=== PATIENT | female | born 1935 | race Caucasian/White ===

== ENCOUNTER 2017-02-23 21:30 | Inpatient (IN) | payer MEDICARE ==
[~2017-02-23 21:30] MED LIST: ALBUTEROL2.5 MG/3 M INH; BAYER CHEWABLE81 MG PO; FLAGYL500 MG PO; GLIPIZIDE10 MG PO; GLUCOPHAGE1000 MG PO; HYDROCODON-ACE1 EAC7 PO; HYDROCODONE-APA1 TAB PO; LEVAQUIN750 MG PO; PROTONIX40 MG PO; SYNTHROID100 MCG PO; TOPROL XL50 MG PO; ZOFRAN ODT4 MG/UDTAB PO; ZYRTEC10 MG PO
[2017-02-23 23:05] LABS: BASOPHILS 0.2 % (0-2); EOSINOPHILS 0.8 % (0-7); HEMATOCRIT 42.7 % (36.0-48.0); HEMOGLOBIN 13.9 g/dL (12-16); IMMATURE GRANULOCYTES 0.7 % (0-5); LYMPHOCYTES 16.5 % (15-50); MCH 29.1 pg (26.0-34.0); MCHC 32.6 g/dL (31.0-37.0); MCV 89.3 fL (80.0-100.0); MEAN PLATELET VOLUME 9.5 fL (7.4-10.4); MONOCYTES 8.6 % (2-11); NEUTROPHILS 73.2 % (40-80); PLATELET COUNT 251 10x3/uL (130-400); RBC 4.78 10x6/uL (4.00-5.40); RDW 15.6 % (11.5-14.5); WBC 9.1 10x3/uL (4.8-10.8)
[2017-02-23 23:17] LABS: ALBUMIN 3.3 g/dL (3.4-5.0); ALKALINE PHOSPHATASE 133 U/L (46-116); ALT (SGPT) 19 U/L (10-68); BILIRUBIN - TOTAL 0.43 mg/dL (0.2-1.3); CALC OSMOLALITY 298 mosm/kg (275-300); CALCIUM 9.3 mg/dL (8.5-10.1); CARBON DIOXIDE 27.1 mmol/L (21.0-32.0); CHLORIDE - SERUM 104 mmol/L (98-107); CREATININE - SERUM 0.8 mg/dL (0.6-1.3); POTASSIUM - SERUM 4.1 mmol/L (3.5-5.1); PROTEIN - SERUM 7.4 g/dL (6.4-8.2); SODIUM 141 mmol/L (136-145); UREA NITROGEN 21 mg/dL (7-18); eGFR NON AFRICAN AMERICAN 73 mL/min (90-120)
[2017-02-23 23:22] LABS: GLUCOSE 366 mg/dL (74-106)
[2017-02-23 23:29] LABS: CKMB 0.8 U/L (0.0-3.6); CREATINE KINASE 68 UL (21-215)
[2017-02-23 23:32] LABS: TROPONIN-I < 0.017 ng/mL (0.000-0.060)
[2017-02-24] VITALS (7 sets, daily range): BP systolic 98–132; BP diastolic 44–63; BMI 28.9
[2017-02-24 00:34] LABS: APTT 25.9 SECONDS (22.8-39.4); INR 0.95 (0.85-1.17); PROTIME 12.5 SECONDS (11.6-15.0)
[2017-02-24 01:05] LABS: APPEARANCE CLEAR (CLEAR); BILIRUBIN NEGATIVE (NEGATIVE); COLOR YELLOW (YELLOW); GLUCOSE NEGATIVE (NEGATIVE); KETONE NEGATIVE (NEGATIVE); NITRITE NEGATIVE (NEGATIVE); PROTEIN NEGATIVE (NEGATIVE); UROBILINOGEN NORMAL (NORMAL)
[2017-02-24] MEDS ORDERED: GLUCOPHAGE500 MG PO (01:16)
[2017-02-24] MEDS ORDERED: BAYER CHEWABLE81 MG PO (01:16)
[2017-02-24] MEDS ORDERED: LANTUS INSULIN10 ML SC (01:19)
--- NOTE | 2017-02-24 02:05 | NUR ---
16 [place]EN[place] BRUNER INSERTED PER ORDER USING APPLICATION SPEC.
--- NOTE | 2017-02-24 03:34 | NUR ---
ASSESSED, PT IS DOING WELL WITH HER BRUNER CATH. SHE HAS BEEN POSITIONED SO THAT SHE IS NOT HAVING A LOT OF PAIN. MEDS ARE COMING FROM A CONVEYOR [employer]ER [employer] WHICH IS KEEPING HER PAIN UNDER CONTROL. THE BED IS LOW, RAILS UP X'S 2 WITH THE CALL LIGHT AT HAND.
--- NOTE | 2017-02-24 07:40 | NUR ---
SLEEPING, NO DISTRESS NOTED, AROUSES TO VOICE, DENIES NEEDS, CALL LIGHT IN REACH, WILL CONTINUE TO MONITOR
[2017-02-24 10:26] LABS: BASOPHILS 0.1 % (0-2); EOSINOPHILS 1.3 % (0-7); HEMATOCRIT 39.9 % (36.0-48.0); IMMATURE GRANULOCYTES 0.3 % (0-5); LYMPHOCYTES 16.1 % (15-50); MCH 29.3 pg (26.0-34.0); MCHC 32.6 g/dL (31.0-37.0); MCV 89.9 fL (80.0-100.0); MEAN PLATELET VOLUME 9.1 fL (7.4-10.4); NEUTROPHILS 74.2 % (40-80); PLATELET COUNT 214 10x3/uL (130-400); RBC 4.44 10x6/uL (4.00-5.40); RDW 15.7 % (11.5-14.5); WBC 6.9 10x3/uL (4.8-10.8)
--- NOTE | 2017-02-24 12:37 | NUR ---
PATIENT ALERT/VERBAL. ABLE TO VOICE NEEDS. EATING LUNCH. NO COMPLAINTS AT THIS TIME. CALL LIGHT IN REACH. WILL CONTINUE TO MONITOR.
--- NOTE | 2017-02-24 12:44 | NUR ---
PT RECEIVED TO FLOOR FROM RECOVERY, DENIES NEEDS, VITALS STABLE, CALL LIGHT IN REACH, FAMILY AT BEDSIDE, WILL CONTINUE TO MONITOR
--- NOTE | 2017-02-24 17:15 | NUR ---
RECEIVED CARE FROM DAY NURSE. PT LYING IN BED IN LOW FOWLERS POSITION. DAUGHTERS AT BEDSIDE. REPORTS NO NEEDS AT THIS TIME. CALL LIGHT AT SIDE. BRUNER TO GRAVITY. NO EXTENSION OF BLEEDING TO RIGHT HIP AT THIS TIME.
--- NOTE | 2017-02-24 19:09 | NUR ---
PATIENT REPORTS THAT SHE IS A CURRENT 5 CIGARETTE PER DAY SMOKER. REFUSES CESSATION MEDICATION AND REFERRAL TO TOBACCO QUITLINE.
--- NOTE | 2017-02-25 00:12 | NUR ---
PATIENT RESTING IN BED AND DENIES NEEDS AT THIS TIME. SPIKED NEW BAG OF IV FLUIDS. BED IN LOWEST POSITION AND CALL LIGHT WITHIN REACH. ENCOURAGED THE PT TO CALL IF SHE HAS FURTHER NEEDS.
--- NOTE | 2017-02-25 02:58 | NUR ---
PT IN HIGH FOWLERS POSITION. RESP EVEN AND UNLABORED. CALL LIGHT AT SIDE. IV INFUSING PER ORDER.
[2017-02-25 04:01] VITALS: BP 111/60
[2017-02-25 05:53] LABS: BASOPHILS 0.1 % (0-2); EOSINOPHILS 1.2 % (0-7); HEMOGLOBIN 11.3 g/dL (12-16); IMMATURE GRANULOCYTES 0.4 % (0-5); LYMPHOCYTES 22.8 % (15-50); MCH 29.4 pg (26.0-34.0); MCHC 32.3 g/dL (31.0-37.0); MCV 91.1 fL (80.0-100.0); MEAN PLATELET VOLUME 9.6 fL (7.4-10.4); MONOCYTES 9.8 % (2-11); NEUTROPHILS 65.7 % (40-80); PLATELET COUNT 206 10x3/uL (130-400); RBC 3.84 10x6/uL (4.00-5.40); RDW 15.8 % (11.5-14.5); WBC 6.9 10x3/uL (4.8-10.8)
[2017-02-25 06:12] LABS: ALKALINE PHOSPHATASE 82 U/L (46-116); ALT (SGPT) 16 U/L (10-68); CALCIUM 7.7 mg/dL (8.5-10.1); CARBON DIOXIDE 26.5 mmol/L (21.0-32.0); CHLORIDE - SERUM 109 mmol/L (98-107); CREATININE - SERUM 0.6 mg/dL (0.6-1.3); POTASSIUM - SERUM 3.8 mmol/L (3.5-5.1); SODIUM 142 mmol/L (136-145); UREA NITROGEN 16 mg/dL (7-18); eGFR NON AFRICAN AMERICAN > 90 mL/min (90-120)
[2017-02-25 06:15] LABS: ALBUMIN 2.4 g/dL (3.4-5.0); CALC OSMOLALITY 284 mosm/kg (275-300); GLUCOSE 112 mg/dL (74-106); PROTEIN - SERUM 5.5 g/dL (6.4-8.2)
[2017-02-25 08:44] VITALS: BP 118/60
[2017-02-25 12:40] VITALS: BP 121/58
--- NOTE | 2017-02-25 14:22 | NUR ---
PT HERE FOR RIGHT HIP FRACTURE FOR THIS VISIT IV TO LEFT ARM PATENT AND INTACT AT THIS TIME SRX2 BED AT LOWEST SETTING CALL LIGHT WITHIN REACH WILL CONTINUE TO MONITOR
[2017-02-25 14:51] VITALS: BMI 28.8
--- NOTE | 2017-02-25 14:59 | NUR ---
Rehab Prescreening Consult recieved and the chart has been reviewed. She is a good IRF candidate. She is POD#1 and has not been able to do more than transfer with PT yet. Rehab will follow her progress and plan to accept on POD#3. Discussed with the CM Laura Castillo. Rosette Portillo RN Clinical Liaison, Rehab
--- NOTE | 2017-02-25 19:30 | NUR ---
RECIEVED SHIFT REPORT. PT IS LYING IN BED. ALERT AND ORIENTED AND ABLE TO VERBALIZE NEEDS. IV IS PATENT AND FLUIDS ARE RUNNING PER ORDER. PHYSICAL THERAPY IS WORKING WITH PT BUT SHE IS ABLE TO ASSIST IN TURNING IN BED FOR COMFORT AND SKIN CARE. BRUNER IS DRAINING URINE BY GRAVITY. SCD'S ON. O2 @ 4 PER NASAL CANNULA. PT DENIES ANY PAIN AT THIS TIME. DRESSINGS TO RIGHT HIP C/D/I. NO NEEDS ARE VERBALIZED AT THIS TIME. WILL CONTINUE TO MONITOR. SIDE RAILS ARE UP X 2. BED IS IN LOWEST POSITION. BED ALARM IS ON FOR SAFETY. CALL LIGHT IS WITHIN REACH.
[2017-02-25 20:00] VITALS: BP 119/51
--- NOTE | 2017-02-25 21:14 | NUR ---
SHIFT ASSESSMENT COMPLETED. NIGHT MEDS GIVEN WITH NO PROBLEMS. PT RECIEVED 8 UNITS INSULIN PER SLIDING SCALE FOR CHVY=997. NO NEEDS ARE VOICED. WILL MONITOR. SIDE RAILS X 2. BED LOW. BED ALARM ON. CALL LIGHT IN REACH.
[2017-02-26] VITALS: BP 141/58
[2017-02-26 04:00] VITALS: BP 135/64
[2017-02-26 05:22] LABS: BASOPHILS 0.1 % (0-2); EOSINOPHILS 1.6 % (0-7); HEMATOCRIT 35.1 % (36.0-48.0); HEMOGLOBIN 11.3 g/dL (12-16); IMMATURE GRANULOCYTES 0.7 % (0-5); LYMPHOCYTES 18.5 % (15-50); MCH 29.1 pg (26.0-34.0); MCHC 32.2 g/dL (31.0-37.0); MCV 90.5 fL (80.0-100.0); MEAN PLATELET VOLUME 9.5 fL (7.4-10.4); MONOCYTES 10.7 % (2-11); NEUTROPHILS 68.4 % (40-80); PLATELET COUNT 213 10x3/uL (130-400); RBC 3.88 10x6/uL (4.00-5.40); RDW 15.7 % (11.5-14.5); WBC 7.7 10x3/uL (4.8-10.8)
[2017-02-26 05:40] LABS: ALBUMIN 2.3 g/dL (3.4-5.0); ALKALINE PHOSPHATASE 96 U/L (46-116); ALT (SGPT) 15 U/L (10-68); BILIRUBIN - TOTAL 0.61 mg/dL (0.2-1.3); CALC OSMOLALITY 277 mosm/kg (275-300); CALCIUM 7.9 mg/dL (8.5-10.1); CARBON DIOXIDE 26.5 mmol/L (21.0-32.0); CHLORIDE - SERUM 103 mmol/L (98-107); CREATININE - SERUM 0.6 mg/dL (0.6-1.3); GLUCOSE 127 mg/dL (74-106); POTASSIUM - SERUM 3.9 mmol/L (3.5-5.1); PROTEIN - SERUM 5.5 g/dL (6.4-8.2); SODIUM 138 mmol/L (136-145); UREA NITROGEN 12 mg/dL (7-18); eGFR NON AFRICAN AMERICAN > 90 mL/min (90-120)
--- NOTE | 2017-02-26 07:00 | NUR ---
PT REC'D FROM [facility]. AAOX4. WHEN ASKED ABOUT COMPLAINTS OF PAIN PT STATES, "I DON'T HURT LONG I DON'T MOVE." REGULAR HEART RATE AND RHYTHM. CRACKLES NOTED TO R UPPER AND MIDDLE LOBES. EXPIRATORY WHEEZES NOTED TO L UPPER LOBE. BOWEL SOUNDS HYPOACTIVE X4 QUADS. DRESSING TO R HIP, X2, CLEAN WITH SOME OLD DRY BLOOD. BLOOD OUTLINED WITH MARKER, TIMED, AND DATED. +2 PEDAL PULSES BILAT. BED LOW, CALL LIGHT IN REACH, DENIES NEEDS. CPOC.
--- NOTE | 2017-02-26 08:50 | NUR ---
MORNING MEDS PASSED AT THIS TIME. TOLERATED WELL. NO COMPLAINTS. BED LOW, CALL LIGHT IN REACH, DENIES NEEDS. CPOC.
[2017-02-26 09:06] VITALS: BP 153/70
--- NOTE | 2017-02-26 11:30 | NUR ---
CURRENT FSBS 166. 4 UNITS OF INSULIN ADMINISTERED PER SS. FAMILY AT BEDSIDE. BED LOW, CALL LIGHT IN REACH, DENIES NEEDS. CPOC.
[2017-02-26 12:27] VITALS: BP 138/76
--- NOTE | 2017-02-26 14:22 | NUR ---
RESTING QUIETLY WITH EYES CLOSED. RESP EVEN,NONLABORED.
--- NOTE | 2017-02-26 15:20 | NUR ---
ONE TIME DOSE OF DULCOLAX SUPPOSITORY ADMINISTERED PER JUL. TOLERATED WELL. BED LOW, CALL LIGHT IN REACH, EXPLAINED TO PT TO HOLD THEM IN FOR LONG SHE COULD, BUT TO CALL WHEN SHE FELT THE URGE.
[2017-02-26 16:14] VITALS: BP 132/64
--- NOTE | 2017-02-26 16:30 | NUR ---
CURRENT FSBS 185. 4 UNITS OF INSULIN ADMNISTERED PER SS.
--- NOTE | 2017-02-26 19:35 | NUR ---
RECIEVED SHIFT REPORT. PT IS LYING IN BED. ALERT AND ORIENTED AND ABLE TO VERBALIZE NEEDS. IV IS PATENT AND FLUIDS ARE RUNNING PER ORDER. O2 @ 4 PER NASAL CANNULA. BRUNER IS DRAINING URINE BY GRAVITY. PT IS AMBULATORY WITH ASSISTANCE TO BEDSIDE COMMODE. PT DENIES ANY PAIN AT THIS TIME. SCD'S ON. DRESSINGS TO RIGHT HIP C/D/I. NO NEEDS ARE VERBALIZED AT THIS TIME. WILL CONTINUE TO MONITOR. SIDE RAILS ARE UP X 2. BED IS IN LOWEST POSITION. BED ALARM IS ON FOR SAFETY. CALL LIGHT IS WITHIN REACH.
[2017-02-26 20:00] VITALS: BP 146/63
--- NOTE | 2017-02-26 21:09 | NUR ---
SHIFT ASSESSMENT COMPLETED. NIGHT MEDS GIVEN WITH NO PROBLEMS. PT RECIEVED 4 UNITS INSULIN PER SLIDING SCALE FOR CEKA=135. NO NEEDS ARE VOICED. WILL MONITOR. SIDE RAILS X 2. BED LOW. BED ALARM ON. CALL LIGHT IN REACH.
[2017-02-27 05:36] LABS: BASOPHILS 0.1 % (0-2); EOSINOPHILS 1.7 % (0-7); HEMOGLOBIN 11.2 g/dL (12-16); IMMATURE GRANULOCYTES 0.3 % (0-5); LYMPHOCYTES 19.4 % (15-50); MCH 28.9 pg (26.0-34.0); MCV 90.4 fL (80.0-100.0); MEAN PLATELET VOLUME 9.5 fL (7.4-10.4); MONOCYTES 12.2 % (2-11); NEUTROPHILS 66.3 % (40-80); PLATELET COUNT 191 10x3/uL (130-400); RBC 3.87 10x6/uL (4.00-5.40); RDW 15.4 % (11.5-14.5); WBC 6.9 10x3/uL (4.8-10.8)
[2017-02-27 05:51] LABS: ALBUMIN 2.2 g/dL (3.4-5.0); ALKALINE PHOSPHATASE 98 U/L (46-116); ALT (SGPT) 16 U/L (10-68); CALC OSMOLALITY 277 mosm/kg (275-300); CALCIUM 8.5 mg/dL (8.5-10.1); CARBON DIOXIDE 25.2 mmol/L (21.0-32.0); CHLORIDE - SERUM 104 mmol/L (98-107); CREATININE - SERUM 0.5 mg/dL (0.6-1.3); GLUCOSE 146 mg/dL (74-106); POTASSIUM - SERUM 3.6 mmol/L (3.5-5.1); PROTEIN - SERUM 5.9 g/dL (6.4-8.2); SODIUM 138 mmol/L (136-145); UREA NITROGEN 11 mg/dL (7-18); eGFR NON AFRICAN AMERICAN > 90 mL/min (90-120)
--- NOTE | 2017-02-27 07:00 | NUR ---
RECEIVED REPORT, ASSUMED CARE OF PT. RESTING WITH EYES SHUT, EASILY AROUSED. CORINE ALARM ON. L FOREARM IV INFUSING FLUIDS ORDERED, DRSG C/D/I. R HIP DRSG X 2, C/D/I. BRUNER CATHETER IN PLACE, SECURED WITH STAT-LOCK, PATENT, DRAINING. SCD'S IN PLACE. NO NEEDS VOICED AT THIS TIME. BED IN LOWEST POSITION, SIDE RAILS UP X 2, CALL LIGHT WITHIN REACH.
[2017-02-27] MEDS ORDERED: HYDROCODONE-APA1 TAB PO (08:25)
[2017-02-27] MEDS ORDERED: ELIQUIS2.5 MG PO (08:25)
[2017-02-27] MEDS ORDERED: Levaquin PREMIX IV (08:25)
[2017-02-27 08:43] VITALS: BP 120/67
--- NOTE | 2017-02-27 10:38 | NUR ---
Patient Name: BASIL ROSALES Admission Status: ER Accout number: [id number] Admission Date: 02-24-2017 : 1935 Admission Diagnosis:DISPLACED INTERTROCHANTERIC FRACTURE OF RIGHT FEMUR, IN Attending: JEFRY GARVIN Current LOS: 3 Anticipated DC Date: Planned Disposition: Primary Insurance: MEDICARE A & B Discharge Planning Comments: CM MET WITH PATIENT REGARDING D/C NEEDS AND PLANS. PATIENT IS DISCHARGING TO REHAB TODAY AND HAS SIGNED THE IMM. PATIENT LIVES WITH HER DAUGHTER AND WILL RETURN THERE AFTER REHAB SHE STATED. PATIENT HAS NO STEPS OR STAIRS AT HER HOME. PATIENT HAS A WALKER, WHEELCHAIR, SHOWER CHAIR, BS COMMODE, GLUCOMETER AND OXYGEN HS AT HOME. PATIENTS PCP IS DR. NUNEZ AND PHARMACY IS [facility] AT [facility]. CM WILL CONTINUE TO FOLLOW PATIENT WITH D/C NEEDS AND PLANS. [facility] DR[facility] [phone] TREY (DAUGHTER) [phone] [employer] Well Fishing Tool Operator: Laura Paiz Is the patient Alert and Oriented? Yes 0 * How many steps to enter\exit or inside your home? 0 0 * PCP DR. NUNEZ 0 * Pharmacy [facility] [phone] * Preadmission Environment Home with Family 0 * ADLs Independent 0 * Equipment Bedside Commode Glucometer Oxygen Walker Wheelchair 0 * List name and contact numbers for known caregivers / representatives who currently or will assist patient after discharge: TREY (DAUGHTER) [phone] 0 * Community resources currently utilized None 0 * Additional services required to return to the preadmission environment? Yes 0 * Can the patient safely return to the preadmission environment? Yes 0 * Has this patient been hospitalized within the prior 30 days at any hospital? No 0 Grand Total: 0
[2017-02-27 12:59] VITALS: BP 139/71
--- NOTE | 2017-02-27 13:23 | OP ---
PATIENT NAME: BASIL ROSALES MEDICAL RECORD: [id number] :36 LOCATION:[id number] ADMISSION DATE:02/24/17 SURGEON: JEFRY GARVIN MD DATE OF OPERATION: 02/24/2017 PREOPERATIVE DIAGNOSIS: Intertrochanteric fracture of the right hip. POSTOPERATIVE DIAGNOSIS: Intertrochanteric fracture of the right hip. PROCEDURE: Cephalomedullary fixation of the right hip that is gamma nail, the right hip. SURGEON: Jefry Garvin MD ANESTHESIA: General. INTRAOPERATIVE COMPLICATIONS: None. SUMMARY OF PATHOLOGIC FINDINGS: The patient was indeed found to have displaced intertrochanteric hip fracture. IMPLANTS UTILIZED: The gamma nail 11 x 180, 125 degrees with 10.5 x 105 lag screw and a 5 x 35 distal interlocking screw. OPERATIVE SUMMARY IN DETAIL: After obtaining the appropriate preoperative orthopedic surgery consent as well as anesthetic consultation, evaluation and clearance, the patient was brought to the operating room. She was given spinal anesthesia on her hospital bed. After spinal anesthesia was allowed to set up, she was moved to the fracture table. The right leg was placed in the traction boot. Left leg was placed in the well leg guan. She was secured firmly to the operating table using the belt system. Right leg was then placed in traction for anatomic reduction of the fracture. The hip was prepped and draped in a routine sterile fashion. Incision was made, awl was then utilized to make an opening into the superolateral aspect of the greater trochanter. Ball-tipped guidewire was passed. Serial and sequential reaming were done for passage of the gamma nail. The gamma nail was seated to the appropriate position as seen on fluoroscopy and a guide pin was placed into the femoral head in a center-center position as seen on AP and lateral fluoroscopic planes. Reaming was then followed by insertion of the nail. The derotational screw was put into place and backed off to allow for compression and not rotation. Compression was then placed across the fracture using the compression wheel. The distal interlocking screw was placed under fluoroscopic guidance using the arm guide system. Having completed this, final radiographs were taken and submitted for radiologist review. Wounds were copiously irrigated and closed in usual fashion. Sterile dressings were applied. The patient was awakened and taken to recovery room in stable condition. All final needle and sponge counts were correct. TRANSINT:[id number] Voice Confirmation ID: [id number] DOCUMENT ID: [id number] OPERATIVE REPORT [id number] BASIL ROSALES MD, JEFRY JUAN at 1323 CC: [id number] DICTATION DATE: 02/24/17 1157 EMERGENCY ROOM SPECIALIST: 02/24/17 1646 ADM IN [facility] [address] [place] [address]
--- NOTE | 2017-02-27 15:54 | NUR ---
REPORT CALLED TO REHAB NURSE KYLIE RAMON RN.
--- NOTE | 2017-02-27 16:13 | NUR ---
R HIP DRSG CHANGED X 2, C/D/I. R FOREARM IV D/C'D, BLEED CONTROL, BANDAGE APPLIED. DISCHARGE INSTRUCTIONS GIVEN TO PT FOR REHAB, VERBALIZED UNDERSTANDING, SIGNED.
--- NOTE | 2017-02-27 17:44 | NUR ---
PT DISCHARGED FROM FLOOR VIA BED TO REHAB ROOM 1110, BY MYSELF AND OPHELIA WALLACE. PERSONAL BELONGINGS WITH PT.
== END 2017-02-27 17:44 | DRG 482 ==
LOC: D.ER 21:30 → D.MS 02-24 00:22
PROVIDERS: Emergency Medicine; Family Medicine; ADMIT Orthopaedic Surgery
PROC: 0QS606Z Reposition Right Upper Femur with Intramedullary Internal Fixation Device, Open Approach (ICD-10-PCS; principal; 2017-02-24 12:00)
DX: S72.141A Displaced intertrochanteric fracture of right femur, initial encounter for closed fracture (principal); W18.39XA Other fall on same level, initial encounter; E11.9 Type 2 diabetes mellitus without complications; E03.9 Hypothyroidism, unspecified; J44.9 Chronic obstructive pulmonary disease, unspecified; R42 Dizziness and giddiness

== ENCOUNTER 2017-02-27 14:37 | Inpatient (IN) | payer MEDICARE ==
[~2017-02-27 14:37] MED LIST changes: +ELIQUIS2.5 MG PO; +GLUCOPHAGE500 MG PO; +LANTUS INSULIN10 ML SC; +Levaquin PREMIX IV
[2017-02-27 18:23] VITALS: BP 134/76; BMI 28.9
--- NOTE | 2017-02-27 19:16 | NUR ---
PT. IN BED WITH HOB UP FOR COMFORT. BRUNER TO BSD WITHOUT ANY PROBLEMS AND HER CALL LIGHT IS WITHIN REACH.
[2017-02-27 20:00] VITALS: BP 138/82
--- NOTE | 2017-02-27 21:06 | NUR ---
PT IS RESTING IN BED WITH EYES OPEN. ALERT AND ORIENTED X 3. DENIES ACUTE DISCOMFORT AT THIS TIME. VSS. O2 IS ON @ 4LPM PER NC. BRUNER CATH IS PATENT AND DRAINING TO A GRAVITY BAG. FSBS WNL. HS SNACK GIVEN. SR'S ARE UP X 3 IN BED. CALL LIGHT AND BEDSIDE TABLE ARE WITHIN EASY REACH.
--- NOTE | 2017-02-28 00:42 | NUR ---
RESTING IN BED WITH EYES CLOSED.
--- NOTE | 2017-02-28 03:31 | NUR ---
RESTING IN BED WITH EYES CLOSED.
--- NOTE | 2017-02-28 05:44 | NUR ---
PT RESTING IN BED AWAITING THERAPY EVAL THIS AM. NO NEEDS VOICED.
[2017-02-28 06:20] LABS: BASOPHILS 0.3 % (0-2); EOSINOPHILS 2.2 % (0-7); HEMATOCRIT 35.7 % (36.0-48.0); HEMOGLOBIN 11.6 g/dL (12-16); IMMATURE GRANULOCYTES 0.6 % (0-5); LYMPHOCYTES 21.7 % (15-50); MCH 29.2 pg (26.0-34.0); MCHC 32.5 g/dL (31.0-37.0); MCV 89.9 fL (80.0-100.0); MEAN PLATELET VOLUME 9.4 fL (7.4-10.4); MONOCYTES 9.6 % (2-11); NEUTROPHILS 65.6 % (40-80); RBC 3.97 10x6/uL (4.00-5.40); RDW 15.5 % (11.5-14.5); WBC 6.3 10x3/uL (4.8-10.8)
[2017-02-28 06:23] LABS: PLATELET COUNT 253 10x3/uL (130-400)
[2017-02-28 06:47] LABS: CALC OSMOLALITY 283 mosm/kg (275-300); CALCIUM 8.6 mg/dL (8.5-10.1); CARBON DIOXIDE 28.5 mmol/L (21.0-32.0); CHLORIDE - SERUM 105 mmol/L (98-107); CREATININE - SERUM 0.6 mg/dL (0.6-1.3); GLUCOSE 105 mg/dL (74-106); POTASSIUM - SERUM 3.8 mmol/L (3.5-5.1); SODIUM 142 mmol/L (136-145); eGFR NON AFRICAN AMERICAN > 90 mL/min (90-120)
[2017-02-28 07:06] LABS: UREA NITROGEN 14 mg/dL (7-18)
--- NOTE | 2017-02-28 07:19 | NUR ---
RESTING QUIETLY IN BED. BED IN LOWEST POSITION. CALL LIGHT IN REACH
[2017-02-28 08:04] VITALS: BP 126/70
--- NOTE | 2017-02-28 08:27 | NUR ---
PT RESTING IN BED WITH EYES OPEN CALL LIGHT IN REACH WILL MONITER
[2017-02-28 12:22] VITALS: BMI 28.8
--- NOTE | 2017-02-28 13:42 | NUR ---
PT UP IN WHEELCHAIR IN ROOM CALL LIGHT IN REACH WILL MONITER
--- NOTE | 2017-02-28 15:48 | NUR ---
INSERTED 22G IV LEFT WRIST FLUSHES WITHOUT DIFFICULTY. DRESSING CLEAN, DRY, AND INTACT. TOLERATED WELL. CALL LIGHT WITHIN REACH, BED LOWEST POSITION, SR X2 AND BED ALARM ON.
--- NOTE | 2017-02-28 18:31 | NUR ---
PT RESTING IN BED WITH EYES OPEN CALL LIGHT IN REACH WILL MONITER
--- NOTE | 2017-02-28 18:50 | NUR ---
PATIENT IN BED, AWAKE. DENIES NEEDS.
--- NOTE | 2017-02-28 19:15 | NUR ---
ASSISTED PATIENT TO COMPLETE MENU. DENIES CURRENT NEEDS.
--- NOTE | 2017-02-28 20:00 | NUR ---
ASSESSMENT COMPLETE. PATIENT DENIES CURRENT NEEDS.
--- NOTE | 2017-02-28 20:00 | NUR ---
ASSESSMENT COMPLETE. DENIES CURRENT NEEDS.
--- NOTE | 2017-02-28 21:55 | NUR ---
FSBS 126. GAVE PATIENT SCHEDULED HS MEDS PO. ASSISTED HER TO REPOSITION HIGHER UP IN BED. INSULATION EXTRUDER OPERATOR EMPTIED 850ML LIGHT IDALIA URINE FROM BRUNER BEDSIDE DRAINAGE BAG. BRUNER TO BE D/C'D EARLY TOMORROW MORNING.
--- NOTE | 2017-02-28 22:45 | NUR ---
IN BED, RESTING QUIETLY, EYES CLOSED.
[2017-02-28 22:56] VITALS: BP 131/58
--- NOTE | 2017-03-01 00:10 | NUR ---
IN BED, EYES CLOSED. APPEARS COMFORTABLE.
--- NOTE | 2017-03-01 02:15 | NUR ---
ARMANDOSSherri IN BED, EYES CLOSED.
--- NOTE | 2017-03-01 03:50 | NUR ---
RESTING IN BED. RESPIRING QUIETLY.
[2017-03-01 05:14] LABS: BASOPHILS 0.2 % (0-2); EOSINOPHILS 3.5 % (0-7); HEMATOCRIT 35.6 % (36.0-48.0); HEMOGLOBIN 11.4 g/dL (12-16); IMMATURE GRANULOCYTES 0.7 % (0-5); LYMPHOCYTES 21.3 % (15-50); MCH 28.9 pg (26.0-34.0); MCV 90.1 fL (80.0-100.0); MEAN PLATELET VOLUME 9.3 fL (7.4-10.4); MONOCYTES 12.2 % (2-11); NEUTROPHILS 62.1 % (40-80); PLATELET COUNT 255 10x3/uL (130-400); RBC 3.95 10x6/uL (4.00-5.40); RDW 14.9 % (11.5-14.5); WBC 5.7 10x3/uL (4.8-10.8)
[2017-03-01 05:35] LABS: CALC OSMOLALITY 284 mosm/kg (275-300); CALCIUM 8.5 mg/dL (8.5-10.1); CARBON DIOXIDE 30.9 mmol/L (21.0-32.0); CHLORIDE - SERUM 106 mmol/L (98-107); CREATININE - SERUM 0.6 mg/dL (0.6-1.3); GLUCOSE 73 mg/dL (74-106); SODIUM 143 mmol/L (136-145); UREA NITROGEN 16 mg/dL (7-18); eGFR NON AFRICAN AMERICAN > 90 mL/min (90-120)
[2017-03-01 05:40] LABS: POTASSIUM - SERUM 3.2 mmol/L (3.5-5.1)
--- NOTE | 2017-03-01 06:30 | NUR ---
GLUCOSE PER LAB BMP IS 73. GAVE HER 8 OZS ORANGE JUICE. D/C'D BRUNER CATH PER ORDERS. TOOK SCHEDULED PO MEDS.
--- NOTE | 2017-03-01 09:13 | NUR ---
PT ASSISTED TO RESTROOM PT VOIDED CLEAR YELLOW URINE NO PROBLEMS PT CLEANED AND DRYED HER SELF AND WITH MOD ASSIST BACK TO CHAIR SET BESIDE OF BED CALL LIGHT IN REACH WILL MONITER
--- NOTE | 2017-03-01 13:37 | NUR ---
PT UP IN WHEELCHAIR IN ROOM TOLERATING WELL WILL MONITER
[2017-03-01 18:15] VITALS: BP 163/69
--- NOTE | 2017-03-01 18:16 | NUR ---
PT RESTING IN BED WITH EYES OPEN CALL LIGHT IN REACH WILL MONITER
--- NOTE | 2017-03-01 18:45 | NUR ---
UP IN W/C AT BEDSIDE. NO C/O.
--- NOTE | 2017-03-01 20:00 | NUR ---
IN BED, AWAKE. DENIES NEEDS.
--- NOTE | 2017-03-01 22:05 | NUR ---
ASSESSMENT AND HS MEDS COMPLETE. REFUSED COLACE DUE TO LOOSE STOOL EARLIER TODAY. FSBS 69. GAVE PATIENT AN AUGMENTED SNACK OF 8 OZS OF SKIM MILK, 6 DEMI SQUARES AND 2 PEANUT BUTTER SINGLE SERVING CUPS. DENIES PAIN OF OTHER NEEDS.
--- NOTE | 2017-03-02 00:30 | NUR ---
RESTING IN BED, EYES CLOSED.
--- NOTE | 2017-03-02 02:15 | NUR ---
IN BED, EYES CLOSED. RESTING QUIETLY AFTER RECENT ASSIST UP TO BR COMMODE AND BACK TO BED.
--- NOTE | 2017-03-02 03:55 | NUR ---
STEEL POST INSTALLER NOW ASSISTING PATIENT UP TO BR TO URINATE. PARTIAL BED LINEN CHANGE REQUIRED DUE TO URINE INCONTINENCE WHILE SLEEPING.
--- NOTE | 2017-03-02 06:00 | NUR ---
FLUSHED LEFT FOREARM S/L. REMAINS PATENT. GAVE PATIENT SCHEDULED PO MEDS INCLUDING GLIPIZIDE 10MG. FSBS 108. GAVE PATIENT 4 OZS ORANGE JUICE TO SUPPORT BLOOD SUGAR UNTIL BREAKFAST @ 0800. DENIES NEEDS.
[2017-03-02 08:00] VITALS: BP 140/77
--- NOTE | 2017-03-02 09:35 | NUR ---
PRN PAIN MEDICATION GIVEN PER PATIENT REQUEST
--- NOTE | 2017-03-02 10:12 | NUR ---
PATIENT INCONT OF LARGE AMOUNT OF URINE. HELPED INTO SHOWER BY THIS NURSE. PATIENT WASHED TOP HALF AND LEGS. NURSE WASHED BACK AND BOTTOM FOR PATIENT. LINENS ON BED CHANGED WHILE PATIENT IN SHOWER. DRESSING TO RIGHT HIP ALSO CHANGED. THREE SMALL INCISIONS. SURGICAL CLIPED. EDGES APPROXAMATED. NO SWELLING OR REDNESS. SMALL AMOUNT OF LIGHT RED DRAINAGE FROM TOP INCSION SITE.
--- NOTE | 2017-03-02 14:35 | NUR ---
IN THERAPY;SANDRITA WELL.
--- NOTE | 2017-03-02 16:14 | NUR ---
IV LEVAQUIN RUNNING IN LEFT FOREARM. LEVAQIN HAS ABOUT 20CC LEFT IN BAG WHEN NURSE NOTED THAT PATIENTS LEFT FORARM WAS RED AND PUFFY. PATIENT STATES ONLY MILD PAIN. IV LEVAQIN STOPED. SALINE LOCK PULLED FROM SITE AND HEAT APPLIED TO FOREARM
--- NOTE | 2017-03-02 17:27 | NUR ---
GLUCOSE LEVEL 163. FOUR UNITS OF SLIDING SCALE INSULIN GIVEN
--- NOTE | 2017-03-02 19:05 | NUR ---
SITTING UP IN W/C AT BEDSIDE. DENIES NEEDS.
[2017-03-02 20:35] VITALS: BP 143/63
--- NOTE | 2017-03-02 20:35 | NUR ---
VS, ASSESSMENT AND HS MEDS COMPLETE. SAYS SHE WANTS TO SIT UP LONGER.
--- NOTE | 2017-03-02 21:20 | NUR ---
ASSISTED PATIENT UP TO BR TO URINATE, AND THEN BACK TO BED.
--- NOTE | 2017-03-02 21:50 | NUR ---
RESTING QUIETLY IN BED, EYES CLOSED.
--- NOTE | 2017-03-02 23:05 | NUR ---
RESTING IN BED, EYES CLOSED.
--- NOTE | 2017-03-03 01:20 | NUR ---
IN BED, EYES CLOSED. RESTING QUIETLY AFTER ASSIST UP TO BR COMMODE IN THE MIDNIGHT TIME FRAME.
--- NOTE | 2017-03-03 03:20 | NUR ---
ASSISTED PAITENT UP TO BR TO URINATE AND BACK TO BED.
--- NOTE | 2017-03-03 04:45 | NUR ---
RESTING IN BED, EYES CLOSED. RESPIRATIONS ARE QUIET AND UNLABORED.
--- NOTE | 2017-03-03 06:10 | NUR ---
FSBS 109. GAVE PATIENT SCHEDULED PO MEDS AND THEN ASSISTED HER UP TO BR TO URINATE.
[2017-03-03 08:00] VITALS: BP 133/53
--- NOTE | 2017-03-03 08:20 | NUR ---
PT SITTING UP IN BED EATING BREAKFAST. PT AM MEDS ADMINISTERED. PT DENIES NEEDS AT THIS TIME.
--- NOTE | 2017-03-03 09:12 | NUR ---
PT ASSISTED TO/FROM BATHROOM. PT HAD MOD BM, SOFT, FORMED. PT NOW SITTING UP IN WC VISITING WITH FAMILY. WCTM.
--- NOTE | 2017-03-03 10:25 | NUR ---
PT ASSISTED TO/FROM BATHROOM. PT HAD MOD BM. PT SITTING UP IN WC VISITING WITH FAMILY AT THIS TIME. WCTM.
--- NOTE | 2017-03-03 12:21 | NUR ---
PT SITTING UP IN WC EATING LUNCH, FAMILY AT SIDE. WCTM.
--- NOTE | 2017-03-03 19:25 | NUR ---
UP IN W/C AT BEDSIDE. DENIES NEEDS.
[2017-03-03 21:35] VITALS: BP 131/55
--- NOTE | 2017-03-03 21:35 | NUR ---
ASSESSMENT AND HS MEDS COMPLETE. ASSISTED PATIENT UP TO BR COMMODE TO TOILET AND TO CHANGE HER CLOTHING AND PULL-UP. ON RETURN TO BED, C/O PAIN LEVEL OF 5/10 IN HER RIGHT HIP. GAVE HER NORCO 10 X1 TAB PO. PATIENT REFUSED COLACE. FSBS 119. GAVE PATIENT HS SNACK.
--- NOTE | 2017-03-03 22:15 | NUR ---
RESTING QUIETLY IN BED, EYES CLOSED.
--- NOTE | 2017-03-04 00:25 | NUR ---
CONTINUES IN BED, EYES CLOSED.
--- NOTE | 2017-03-04 02:00 | NUR ---
REMAINS IN BED, EYES CLOSED. NO DISCOMFORT EVIDENT.
--- NOTE | 2017-03-04 04:40 | NUR ---
IN BED, EYES CLOSED. RESPIRATIONS QUIET AND UNLABORED.
[2017-03-04 05:52] LABS: BASOPHILS 0.5 % (0-2); EOSINOPHILS 3.1 % (0-7); HEMATOCRIT 35.3 % (36.0-48.0); HEMOGLOBIN 11.2 g/dL (12-16); IMMATURE GRANULOCYTES 1.1 % (0-5); LYMPHOCYTES 27.5 % (15-50); MCH 28.6 pg (26.0-34.0); MCHC 31.7 g/dL (31.0-37.0); MCV 90.3 fL (80.0-100.0); MEAN PLATELET VOLUME 8.9 fL (7.4-10.4); MONOCYTES 11.6 % (2-11); NEUTROPHILS 56.2 % (40-80); RBC 3.91 10x6/uL (4.00-5.40); RDW 15.1 % (11.5-14.5); WBC 6.2 10x3/uL (4.8-10.8)
[2017-03-04 05:57] LABS: PLATELET COUNT 329 10x3/uL (130-400)
--- NOTE | 2017-03-04 06:00 | NUR ---
GAVE PATIENT SCHEDULED PO MEDS. FSBS 89. GAVE HER 4 OZS OJ TO SUPPORT BLOOD SUGAR UNTIL BREAKFAST IN THE FACE OF THE GLUCOTROL 10MG SHE JUST RECEIVED. ASSISTED HER UP TO BR TO URINATE, CHANGE PULL-UP AND TO DON HER PANTS. RETURNED HER TO BED.
[2017-03-04 06:27] LABS: ALBUMIN 2.2 g/dL (3.4-5.0); ALKALINE PHOSPHATASE 98 U/L (46-116); ALT (SGPT) 13 U/L (10-68); CALC OSMOLALITY 283 mosm/kg (275-300); CALCIUM 8.9 mg/dL (8.5-10.1); CARBON DIOXIDE 31.5 mmol/L (21.0-32.0); CHLORIDE - SERUM 105 mmol/L (98-107); CREATININE - SERUM 0.6 mg/dL (0.6-1.3); GLUCOSE 103 mg/dL (74-106); POTASSIUM - SERUM 3.8 mmol/L (3.5-5.1); PROTEIN - SERUM 5.8 g/dL (6.4-8.2); SODIUM 142 mmol/L (136-145); UREA NITROGEN 16 mg/dL (7-18); eGFR NON AFRICAN AMERICAN > 90 mL/min (90-120)
[2017-03-04 09:12] VITALS: BP 130/45
--- NOTE | 2017-03-04 16:08 | NUR ---
PT SITTING UP IN WC VISITING WITH FAMILY, DENIES NEEDS. WCTM.
--- NOTE | 2017-03-04 19:45 | NUR ---
PT IN WC. WATCHING TV. ALERT & ORIENTED. RIGHT HIP DRESSING C/D/I. FSBS ACHS. O2 @ 2L VIA NC. NO IV. CORINE ALARM ON. CALL LIGHT WITHIN REACH.
--- NOTE | 2017-03-04 23:45 | NUR ---
PT IN BED WITH HOB UP FOR COMFORT. EYES CLOSED. CHEST RISING AND FALLING. BED IN LOWEST POSITION AND CALL LIGHT WITHIN REACH.
--- NOTE | 2017-03-05 03:45 | NUR ---
PT IN BED WITH HOB UP FOR COMFORT. EYES CLOSED. RESPIRATIONS EVEN. BED IN LOWEST POSITION AND CALL LIGHT WITHIN REACH.
--- NOTE | 2017-03-05 05:24 | NUR ---
RESTING IN BED WITH EYES CLOSED. N O S/S OF DISTRESS OBSERVED. DRESSING TO RIGHT HIP. CLEAN, DRY AND INTACT. SCD'S N PLACE AND FUNCTIONING PROPERLY. CALL LIGHT AND OVERBED TABLE IN REACH.
[2017-03-05 08:34] VITALS: BP 145/67
--- NOTE | 2017-03-05 09:05 | NUR ---
PT UP IN BATHROOM VOIDED CLEANED DRYED TRANSFERED BACK TO WHEELCHAIR NO PROBLEMS WILL MONITER
--- NOTE | 2017-03-05 09:55 | NUR ---
PATIENT ADMITTED TO REHAB FROM ACUTE FLOOR. DR. NUNEZ IS HER PCP , HER PHARMACY IS [facility]. DME AT HOME: WALKER, WHEELCHAIR, SHOWER CHAIR, BEDSIDE COMMODE AND O2. DISCHARGE PLANA ARE FOR HER TO RETURN HOME WITH HER DAUGHTER. WILL CONTINUE TO FOLLOW WITH PATIENT
--- NOTE | 2017-03-05 14:25 | NUR ---
PT UP IN WHEELCHAIR IN ROOM WATCHING TV CALL LIGHT IN REACH WILL MONITER
--- NOTE | 2017-03-05 20:15 | NUR ---
PT IN WC. TALKING ON PHONE. ALERT & ORIENTED. RIGHT HIP DRESSING C/D/I. FSBS ACHS. O2 @ 2L VIA NC. NO IV. CORINE ALARM ON. CALL LIGHT WITHIN REACH.
[2017-03-05 21:00] VITALS: BP 117/66
--- NOTE | 2017-03-06 00:05 | NUR ---
PT IN BED WITH HOB UP FOR COMFORT. EYES CLOSED. CHEST RISING AND FALLING. BED IN LOWEST POSITION AND CALL LIGHT WITHIN REACH.
--- NOTE | 2017-03-06 01:13 | NUR ---
RESTING IN BED WITH EYES CLOSED. NO S/S OF DISTRESS OBSERVED. 02@2 LITERS PER N/C.HOB ELEVATED TO [address]ARM [address] AND FUNCTIONING PROPERLY.
--- NOTE | 2017-03-06 04:12 | NUR ---
ASSISTED PT TO BATHROOM AND BACK TO BED.
--- NOTE | 2017-03-06 08:00 | NUR ---
SITTING UP IN WC AT BEDSIDE.CL IN REACH.
[2017-03-06 08:13] VITALS: BP 138/51
--- NOTE | 2017-03-06 08:15 | NUR ---
PT UP AT BEDSIDE EATING BREAKFAST CALL LIGHT IN REACH WILL MONITER
--- NOTE | 2017-03-06 14:26 | NUR ---
PT UP IN WHEELCHAIR IN THERAPY GYM TOLERATING WELL WILL MONITER
--- NOTE | 2017-03-06 17:47 | NUR ---
CARE TEAM MEETING: TENATIVE DISCHARGE DATE IS 03/15/17
--- NOTE | 2017-03-06 18:27 | NUR ---
PT RESTING IN BED EYES OPEN CALL LIGHT IN REACH NO PROBLEMS WILL MONITER
--- NOTE | 2017-03-06 20:00 | NUR ---
PT. SITTING UP IN W/C AND NEEDS ASSISTANCE TO THE BR. ASSISTED TO/FROM BR AND POSITIONED PT. FOR COMFORT IN BED. ASSESSMENT COMPLETED. NO VOICED NEEDS AT THIS TIME AND HER CALL LIGHT IS WITHIN REACH.
[2017-03-06 21:00] VITALS: BP 102/50
--- NOTE | 2017-03-06 23:16 | NUR ---
PT. IN BED WITH HOB UP FOR COMFORT WITH EYES CLOSED AND RESP. EVEN. RLE REMAINS ELEVATED ON PILLOW FOR COMFORT. CALL LIGHT WITHIN REACH.
--- NOTE | 2017-03-07 03:10 | NUR ---
PT. IN BED WITH HOB/FOB ELEVATED FOR COMFORT. EYES CLOSED AND RESP. EVEN WITH HER CALL LIGHT WITHIN REACH.
--- NOTE | 2017-03-07 07:45 | NUR ---
SITTING UP IN BED EATING BREAKFAST. ALERT AND ORIENTED X4. NO S/SX OF DISTRESS. DENIES ANY NEEDS OR PAIN. CALL LIGHT WITHIN REACH, BED ALARM ON, BED LOW, SR X2. WILL CONTINUE TO MONITOR
[2017-03-07 08:50] VITALS: BP 130/53
--- NOTE | 2017-03-07 09:45 | NUR ---
ADMINISTERED MORNING MEDS WITHOUT DIFFICULTY. SITTING UP IN W/C WATCHING TV. CONTINUES ON 2L O2 VIA NC. NO S/SX OF RESPIRATORY DISTRESS. CALL LIGHT WITHIN REACH, BRAKES LOCKED, BOX ALARM ON. WILL CONTINUE TO MONITOR
--- NOTE | 2017-03-07 14:04 | NUR ---
IN THERAPY GYM WITH OCCUPATIONAL THERAPY. DENIES ANY NEEDS AND ONLY MINIMAL DISCOMFORT. WILL CONTINUE TO MONITOR
--- NOTE | 2017-03-07 14:16 | NUR ---
Nutrition Follow Up: Chart reviewed. Pt with good po intake. +BM. Meds and labs reviewed. Pt continues at low nutritional risk. RD following.
--- NOTE | 2017-03-07 17:24 | NUR ---
SITTING UP IN W/C WATCHING TV. DENIES ANY PAIN OR NEEDS. NO S/SX OF RESPIRATORY DISTRESS. CALL LIGHT WITHIN REACH, BOX ALARM ON, W/C BRAKES LOCKED. WILL CONTINUE TO MONITOR
--- NOTE | 2017-03-07 18:00 | NUR ---
DENIES NEEDS.CL IN REACH.
--- NOTE | 2017-03-07 19:30 | NUR ---
PT. IN BED WITH HOB UP FOR COMFORT. ASSESSMENT COMPLETED. NO VOICED NEEDS AT THIS TIME. CALL LIGHT WITHIN REACH.
[2017-03-07 21:37] VITALS: BP 122/57
--- NOTE | 2017-03-07 23:09 | NUR ---
PT. IN BED WITH HOB UP FOR COMFORT WITH EYES CLOSED AND RESP. EVEN. O2 ON AT 2L/MIN VIA N/C WITHOUT ANY S/S DISTRESS. CALL LIGHT REMAINS WITHIN REACH.
--- NOTE | 2017-03-08 03:08 | NUR ---
PT. IN BED WITH HOB UP FOR COMFORT WITH EYES CLOSED AND RESP. EVEN. LE'S UP ON PILLOW TO BRIDGE HEELS AND HER CALL LIGHT IS WITHIN REACH. SCD'S REMAIN ON BLE'S WITHOUT ANY ALARMS.
[2017-03-08 05:55] LABS: BASOPHILS 0.1 % (0-2); EOSINOPHILS 2.6 % (0-7); HEMATOCRIT 35.9 % (36.0-48.0); HEMOGLOBIN 11.3 g/dL (12-16); IMMATURE GRANULOCYTES 0.8 % (0-5); LYMPHOCYTES 25.2 % (15-50); MCH 28.8 pg (26.0-34.0); MCHC 31.5 g/dL (31.0-37.0); MCV 91.3 fL (80.0-100.0); MEAN PLATELET VOLUME 8.8 fL (7.4-10.4); MONOCYTES 8.4 % (2-11); NEUTROPHILS 62.9 % (40-80); RBC 3.93 10x6/uL (4.00-5.40); RDW 15.2 % (11.5-14.5); WBC 7.2 10x3/uL (4.8-10.8)
[2017-03-08 05:59] LABS: PLATELET COUNT 419 10x3/uL (130-400)
[2017-03-08 06:25] LABS: CALC OSMOLALITY 284 mosm/kg (275-300); CARBON DIOXIDE 31.1 mmol/L (21.0-32.0); CHLORIDE - SERUM 105 mmol/L (98-107); CREATININE - SERUM 0.7 mg/dL (0.6-1.3); GLUCOSE 140 mg/dL (74-106); POTASSIUM - SERUM 4.5 mmol/L (3.5-5.1); SODIUM 141 mmol/L (136-145); UREA NITROGEN 18 mg/dL (7-18); eGFR NON AFRICAN AMERICAN 85 mL/min (90-120)
--- NOTE | 2017-03-08 07:40 | NUR ---
RESTING QUIETLY IN BED. CALL LIGHT IN REACH. BED IN LOWEST POSITION.
[2017-03-08 08:16] VITALS: BP 122/56
--- NOTE | 2017-03-08 09:21 | NUR ---
PATIENT IN REHAB ROOM. WORKING WITH OCCUPATIONAL THERAPIST. DENIES ANY PAIN/DISC AT THIS TIME.
--- NOTE | 2017-03-08 09:22 | NUR ---
PATIENT IN REHAB ROOM. WORKING WITH OCCUPATIONAL THERAPIST. PRN NOCO GIVEN FOR RIGHT HIP PAIN PER PATIENT REQUEST
--- NOTE | 2017-03-08 13:51 | NUR ---
PATIENT HELPED INTO BATHROOM. STRESS INCONT. PATIENT WEARS A BRIEF. BRIEF CHANGED.
--- NOTE | 2017-03-08 15:00 | NUR ---
GLUCOSE LEVEL 145. NO SLIDING SCALE INSULIN GIVEN
--- NOTE | 2017-03-08 19:25 | NUR ---
PT. SITTING UP IN W/C AND ASSISTED TO BR FOR HER TO URINATE AND THEN ASSISTED TO BED. POSITIONED TO COMFORT, ASSESSMENT COMPLETED AND SCD'S PLACED TO BLE'S AND TURNED ON. NO VOICED NEEDS AND THIS TIME AND HER CALL LIGHT IS WITHIN REACH.
[2017-03-08 20:30] VITALS: BP 117/71
--- NOTE | 2017-03-08 23:10 | NUR ---
PT. IN BED WITH HOB/FOB ELEVATED FOR COMFORT. PILLOW UNDER LE'S TO BRIDGE HEELS. SCD'S TO BLE'S WITHOUT ALARMS. EYES CLOSED AND RESP. EVEN WITH CALL LIGHT WITHIN REACH.
--- NOTE | 2017-03-09 03:10 | NUR ---
PT. IN BED WITH HOB UP FOR COMFORT AND LE'S ON PILLOW TO BRIDGE HEELS. EYES CLOSED AND RESP. EVEN. CALL LIGHT WITHIN REACH.
--- NOTE | 2017-03-09 08:05 | NUR ---
PATIENT SITTING UP IN WHEELCHAIR FOR BREAKFAST. PATIENT IS ALERT/ORIENT X4. CALL LIGHT WITHIN REACH. VOICES NO NEEDS AT THIS TIME.
[2017-03-09 08:36] VITALS: BP 118/56
--- NOTE | 2017-03-09 09:13 | NUR ---
PRN PAIN MEDICATION GIVEN FOR INCISIONAL PAIN PER PATIENTS REQUEST.
--- NOTE | 2017-03-09 11:23 | NUR ---
GLUCOSE LEVEL 225. EIGHT UNITS OF SLIDING SCALE INSULIN GIVEN. PATIENT STATES THAT SHE CHECKS HER OWN BLOOD SUGAR LEVELS AT HOME.
--- NOTE | 2017-03-09 13:45 | NUR ---
UP IN W/C AT THIS TIME. SHOWER GIVEN EARLIER. PLEASANT AND COOPERATIVE. ALERT AND ORIENTED. BLIND IN RIGHT EYE AND POOR VISION IN THE LEFT EEYE. CAN SEE CLOSE UP. 3 INCISIONS TO RIGHT HIP WITH CLIPS INTACT. DENIES ANY PAIN AT THISTIME. CALL LIGHT AND OVERBED TABLE IN REACH.
--- NOTE | 2017-03-09 17:10 | NUR ---
GLUCOSE LEVEL 158. FOUR UNITS OF SLIDING SCALE INSULIN GIVEN
[2017-03-09 19:00] VITALS: BP 111/48
--- NOTE | 2017-03-09 19:45 | NUR ---
PT IS SITTING IN A WC IN HER ROOM WATCHING TV. ALERT AND ORIENTED X 3. DENIES ACUTE PAIN OR DISCOMFORT. O2 IS ON @ 2LPM PER NC. NO SOB NOTED. INCISIONS TO RIGHT HIP ARE CDI. NO DRAINAGE NOTED. CALL LIGHT AND BEDSIDE TABLE ARE WITHIN EASY REACH.
--- NOTE | 2017-03-09 21:31 | NUR ---
PT ASSISTED TO THE BATHROOM AND THEN TO BED. NO FURTHER NEEDS VOICED.
--- NOTE | 2017-03-09 23:07 | NUR ---
RESTING IN BED WITH EYES CLOSED.
--- NOTE | 2017-03-10 01:23 | NUR ---
RESTING IN BED WITH EYES CLOSED.
--- NOTE | 2017-03-10 02:30 | NUR ---
REMAINS IN BED, EYES CLOSED. NO DISTRESS EVIDENT.
--- NOTE | 2017-03-10 05:52 | NUR ---
PT IS SITTING IN HER WC IN HER ROOM DRINKING A CUP OF COFFEE. NO FURTHER NEEDS VOICED.
--- NOTE | 2017-03-10 08:00 | NUR ---
PATIENT IS ALERT/ORIENT X4. UP IN A WHEELCHAIR FOR BREAKFAST. TAKING SELF TO BATHROOM. ABLE TO DO WHEELCHAIR TRANSFERS SAFELY. PATIENT HAS SIGNED A BED/CHAIR ALARM WAVIOR RELEASE. PATIENT USING CALL LIGHT WITH ANY OTHER NEEDS. CALL LIGHT WITHIN REACH
[2017-03-10 08:03] VITALS: BP 117/55
--- NOTE | 2017-03-10 11:54 | NUR ---
GLUCOSE LEVEL 220. EIGHT UNITS OF SLIDING SCALE INSULIN GIVEN
--- NOTE | 2017-03-10 16:45 | NUR ---
GLUCOSE LEVEL 135. NO SLIDING SCALE INSULIN GIVEN PER ORDER.
--- NOTE | 2017-03-10 19:04 | NUR ---
PT IS SITTING IN HER WC IN HER ROOM WATCHING TV. ALERT AND ORIENTED X 3. DENIES ANY NEEDS OR DISCOMFORT AT THIS TIME. O2 IS ON @ 2LPM PER NC. SR'S ARE UP X 3 WHILE IN BED. CALL LIGHT AND BEDSIDE TABLE ARE WITHIN EASY REACH.
[2017-03-10 19:17] VITALS: BP 139/57
--- NOTE | 2017-03-10 21:28 | NUR ---
PT RESTING IN BED WITH EYES OPEN. NO NEEDS VOICED.
--- NOTE | 2017-03-10 23:44 | NUR ---
RESTING IN BED WITH EYES CLOSED.
--- NOTE | 2017-03-11 00:40 | NUR ---
IN BED, EYES CLOSED. RESTING QUIETLY.
--- NOTE | 2017-03-11 03:12 | NUR ---
PT RESTING IN BED WITH EYES CLOSED. NO ACUTE DISTRESS NOTED.
--- NOTE | 2017-03-11 05:49 | NUR ---
PT ASSISTED TO THE BATHROOM WITH SBA. SHE OPTED TO STAY UP IN CHAIR AND DRINK A CUP OF COFFEE.
--- NOTE | 2017-03-11 08:15 | NUR ---
PT RESTING IN BED WITH EYES OPEN CALL LIGHT IN REACH WILL MONITER
[2017-03-11 09:00] VITALS: BP 118/51
--- NOTE | 2017-03-11 18:09 | NUR ---
PT UP IN WHEELCHAIR AT BEDSIDE CALL LIGHT IN REACH WILL MONITER
--- NOTE | 2017-03-11 19:31 | NUR ---
PT. SITTING UP IN W/C AND IS WATCHING TV. NO VOICED NEEDS AND WAS BRAGGING ABOUT HOW FAR SHE HAD WALKED TODAY WITH THERAPY. CALL LIGHT WITHIN REACH.
[2017-03-11 20:34] VITALS: BP 128/56
--- NOTE | 2017-03-11 21:17 | NUR ---
PT IS RESTING IN A WC IN HER ROOM WATCHING TV. ALERT AND ORIENTED X 3. DENIES ACUTE PAIN OR DISCOMFORT. VSS. 3 INCISIONS TO RIGHT HIP ARE CDI. CLIPS ARE INTACT. NO DRAINAGE NOTED. O2 IS ON @ 2LPM PER NC. NO SOB NOTED. PT ASSISTED TO THE BATHROOM PRN. CALL LIGHT AND BEDSIDE TABLE ARE WITHIN EASY REACH.
--- NOTE | 2017-03-12 00:06 | NUR ---
PT ASSISTED TO THE BATHROOM WITH SBA.
--- NOTE | 2017-03-12 02:47 | NUR ---
RESTING IN BED WITH EYES CLOSED.
--- NOTE | 2017-03-12 08:00 | NUR ---
PATIENT ALERT/ORIENT X4. SITTING UP IN A WHEELCHAIR TO EAT BREAKFAST. HAS SIGNED A BED CHAIR ALARM WAVIOR. STEADY GAIT WHEN AMBULATING IN ROOM.
[2017-03-12 08:22] VITALS: BP 113/45
--- NOTE | 2017-03-12 09:57 | NUR ---
PATIENT IN REHAB ROOM. WORKIG WITH PHYSICAL THERAPIST. DENIES ANY PAIN/DISC AT THIS TIME.
[2017-03-12 10:02] VITALS: BMI 28.8
--- NOTE | 2017-03-12 11:55 | NUR ---
GLUCOSE LEVEL 252. TEN UNITS OF SLIDING SCALE INSULIN GIVEN
--- NOTE | 2017-03-12 17:00 | NUR ---
GLUCOSE LEVEL 104. NO SLIDING SCALE GIVEN PER ORDER
--- NOTE | 2017-03-12 17:55 | NUR ---
SITTING UP EATING SUPPER. DENIES NEEDS. BED IN LOWEST POSITION.
--- NOTE | 2017-03-12 19:21 | NUR ---
PT. SITTING UP IN W/C AND IS WATCHING TV. NO VOICED NEEDS AT THIS TIME AND HER CALL LIGHT IS WITHIN REACH.
--- NOTE | 2017-03-12 20:06 | NUR ---
REST IN BED AND WATCH TV.
[2017-03-12 21:45] VITALS: BP 116/70
--- NOTE | 2017-03-13 01:47 | NUR ---
REST IN BED AND WATCH TV.
--- NOTE | 2017-03-13 01:48 | NUR ---
ASSISTED PT TO BATHROOM AND BACK TO BED.
--- NOTE | 2017-03-13 02:12 | NUR ---
ASSISTED PT TO BATHROOM AND BACK TO BED.
--- NOTE | 2017-03-13 04:00 | NUR ---
ASSISTED PT TO BATHROOM AND BACK TO BED.
--- NOTE | 2017-03-13 04:17 | NUR ---
REST IN BED, EYE CLOSE, CALL LIGHT IN REACH.
[2017-03-13 06:14] LABS: BASOPHILS 0.3 % (0-2); EOSINOPHILS 2.7 % (0-7); HEMATOCRIT 33.9 % (36.0-48.0); HEMOGLOBIN 10.6 g/dL (12-16); IMMATURE GRANULOCYTES 0.3 % (0-5); MCH 28.8 pg (26.0-34.0); MCHC 31.3 g/dL (31.0-37.0); MCV 92.1 fL (80.0-100.0); MEAN PLATELET VOLUME 8.9 fL (7.4-10.4); NEUTROPHILS 60.7 % (40-80); PLATELET COUNT 391 10x3/uL (130-400); RBC 3.68 10x6/uL (4.00-5.40); RDW 15.3 % (11.5-14.5)
[2017-03-13 06:30] LABS: ANION GAP 9.5 mmol/L (8-16); CALCIUM 8.7 mg/dL (8.5-10.1); CARBON DIOXIDE 30.8 mmol/L (21.0-32.0); CREATININE - SERUM 0.8 mg/dL (0.6-1.3); POTASSIUM - SERUM 4.3 mmol/L (3.5-5.1)
--- NOTE | 2017-03-13 08:00 | NUR ---
SITTING UP IN WC.CL IN REACH.
[2017-03-13 08:18] VITALS: BP 116/35
--- NOTE | 2017-03-13 11:31 | NUR ---
GLUCOSE LEVEL 260. TEN UNITS OF SLIDING SCALE INSULIN GIVEN
--- NOTE | 2017-03-13 12:52 | NUR ---
DR.S RESTREPO IN CARE PLAN MEETING. NEW ORDERS RECEIVED FOR LOMOTIL OLIVEN
--- NOTE | 2017-03-13 16:31 | NUR ---
GLUCOSE LEVEL 133. NO SLIDING SCALE INSULIN GIVEN PER ORDER
--- NOTE | 2017-03-13 19:30 | NUR ---
SITTING UP IN W/C AT BEDSIDE. DENIES NEEDS.
--- NOTE | 2017-03-13 20:20 | NUR ---
REMAINS SEATED IN W/C AT BEDSIDE. DENIES NEEDS.
[2017-03-13 21:10] VITALS: BP 131/58
--- NOTE | 2017-03-13 21:10 | NUR ---
ASSESSMENT AND HS MEDS COMPLETE. ASSISTED PATIENT UP TO BR TO URINATE AND THEN BACK TO BED. REFUSED SCHEDULED COLACE.
--- NOTE | 2017-03-13 22:10 | NUR ---
IN BED, EYES CLOSED. O2 PER N/C @ 2L FLOW.
--- NOTE | 2017-03-14 00:05 | NUR ---
RESTING QUIETLY IN BED, EYES CLOSED.
--- NOTE | 2017-03-14 02:20 | NUR ---
RESTING QUIETLY IN BED, HOB UP 20 DEGREES.
--- NOTE | 2017-03-14 05:45 | NUR ---
SITTING UP IN W/C BESIDE BED AFTER RECENT ASSIST UP TO BR COMMODE TO URINATE. GAV PATIENT SCHEDULED PO MEDS. FSBS 156. IN LIEU OF SLIDING SCALE INSULIN (4 UNITS), GAVE HER 0700-SCHEDULED GLIPIZIDE 10MG PO. PROVIDED HER WITH A CUP OF COFFEE.
--- NOTE | 2017-03-14 07:49 | NUR ---
SITTING UP IN W/C EATING BREAKFAST. ALERT AND ORIENTED X4. DENIES ANY PAIN OR NEEDS. NO S/SX OF RESPIRATORY DISTRESS. CONTINUES ON 2L OF O2 VIA NC. CALL LIGHT AND PERSONAL ITEMS WITHIN REACH, W/C BRAKES LOCKED, ALARM WAIVER SIGNED. WILL CONTINUE TO MONITOR
[2017-03-14 07:51] VITALS: BP 129/45
--- NOTE | 2017-03-14 07:54 | NUR ---
RESTING QUIETLY IN BED. CALL LIGHT IN REACH. BED IN LOWEST POSITION.
[2017-03-14] MEDS ORDERED: HYDROCODONE-APA1 TAB PO (08:26)
--- NOTE | 2017-03-14 10:00 | NUR ---
WALKING IN HALLWAY WITH PHYSICAL THERAPY. NO S/SX OF RESPIRATORY DISTRESS. WILL CONTINUE TO MONITOR
--- NOTE | 2017-03-14 13:36 | NUR ---
SITTING UP IN W/C WATCHING TV. DENIES ANY NEEDS OR PAIN. NO S/SX OF ACUTE DISTRESS. CALL LIGHT AND PERSONAL ITEMS WITHIN REACH, W/C BRAKES LOCKED, WILL CONTINUE TO MONITOR
--- NOTE | 2017-03-14 17:33 | NUR ---
SITTING UP IN W/C RESTING. CALL LIGHT AND PERSONAL ITEMS WITHIN REACH, W/C BRAKES LOCKED. NO S/SX OF RESPIRATORY DISTRESS. WILL CONTINUE TO MONITOR
--- NOTE | 2017-03-14 19:00 | NUR ---
UP IN W/C AT BEDSIDE, WATCHING TV. NO C/O AT THIS TIME.
[2017-03-14 20:45] VITALS: BP 128/58
--- NOTE | 2017-03-14 20:45 | NUR ---
ASSESSMENT COMPLETE. DENIES NEEDS. ASSISTED PATIENT INTO BED FROM W/C.
--- NOTE | 2017-03-14 21:45 | NUR ---
TOOK HS MEDS WITHOUT DIFFICULTY. FSBS 149.
--- NOTE | 2017-03-15 00:15 | NUR ---
CONTINUES IN BED, EYES CLOSED. HOB UP 30 DEGREES.
--- NOTE | 2017-03-15 02:15 | NUR ---
RESTING IN BED, EYES CLOSED.
--- NOTE | 2017-03-15 04:40 | NUR ---
CONTINUES IN BED, EYES CLOSED, RESPIRING QUIETLY.
--- NOTE | 2017-03-15 05:40 | NUR ---
SITTING UP IN W/C AT BEDSIDE AFTER RECENT ASSIST TO COMMODE TO URINATE. GAVE HER A CUP OF COFFEE. DENIES NEEDS.
--- NOTE | 2017-03-15 07:36 | NUR ---
PT RESTING IN BED WITH EYES OPEN CALL LIGHT IN REACH WILL MONITER
--- NOTE | 2017-03-15 08:00 | NUR ---
ALERT AND ORIENTED X3, UP AT BEDSIDE IN WC HAVING BREAKFAST. AM FSBS 120, NO INSULIN COVERAGE REQUIRED. DENIES PAIN OR DISCOMFORT , CL AT SIDE. DR RESTREPO ON UNIT
[2017-03-15 08:52] VITALS: BP 159/60
--- NOTE | 2017-03-15 11:32 | NUR ---
TYLOR REMOVED FROM RT UPPER HIP/THIGH INCISIONS X3, NO REDNESS, EDEMA, OR DRAINAGE NOTED. STERI STRIPS PLACED. REVIEWED DC HOME MEDS AND FOLLOWUP APPT WITH PT AND DAUGHTER. RX CALLED TO [facility] SPOKE WITH PAULINA. PT VOICED NO REQUEST. TO DC WITH FAMILY
--- NOTE | 2017-03-15 12:00 | NUR ---
PATIENT IS DISCHARGING HOME WITH FAMILY. [facility] WILL FOLLOW WITH PATIENT AT HOME. NO NEW DME NEEDED AT THIS TIME. DR. NUNEZ 03/19/17 8:30, DR. GARVIN 03/19/17 @ 1:45. PATIENT CHOICE FORM FOR HOME HEALTH AND [facility] FORM SIGNED, EXPLAINED AND FILED IN CHART. ORDERS HAVE BEEN FAXED WITH CONFORMATION RECIEVED
--- NOTE | 2017-03-15 12:11 | NUR ---
PT ESCORTED VIA WC TO CAR WITH SON AND DAUGHTER. DENIES NEEDS OR REQUEST, VERBALIZED UNDERSTANDING OF DC INSTRUCTIONS
--- NOTE | 2017-03-19 17:09 | RHP ---
PATIENT: BASIL ROSALES MEDICAL RECORD: [id number] ACCOUNT: [id number] LOCATION:[facility]1110 : 37 ADMISSION DATE: 02/27/17 REHABILITATION HISTORY AND PHYSICAL EXAMINATION POST ADMISSION PHYSICIAN EXAMINATION POST-ADMISSION PHYSICAL EXAMINATION AND HISTORY AND PHYSICAL DATE OF ADMISSION: 02/27/2017 ADMITTING DIAGNOSIS: Right hip fracture of the intertrochanteric region status post gamma nail. HISTORY OF PRESENT ILLNESS: The patient is an 81-year-old female patient, admitted for a right intertrochanteric hip fracture. She underwent a gamma nail on 02/24/2017. Past medical history includes CVA. 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 Diabetes, hypothyroidism, COPD, O2 dependent, tobacco smoker. She has increased levels of supplemental O2 per nasal cannula secondary to her postop. She developed a low-grade temperature and chest x-ray revealed diffuse interstitial disease, edema versus pneumonia. She was started on IV Levaquin and updrafts. She is currently weaning to 4 liters of O2 with an O2 sat of 96%. She lives alone with her daughter and was independent with her ADLs and mobility. She is primarily [id number] assist for ADLs and mobility. She is able to perform supine to sit with moderate assist and stand at bedside with moderate assist, but has a lot of pain with any movement. She wants to be able to return back home with her daughter status post discharge and hopefully get back to her prior level of function, would definitely require inpatient rehab to get there. Comorbidities include intertrochanteric fracture, diffuse interstitial disease, diabetes, chronic vertigo, COPD, hypertension, CVA, tobacco use, and history of hypothyroidism. PAST MEDICAL HISTORY: Significant for CVA. She has had blindness in her right eye. She has diabetes, thyroid problems, COPD, O2 dependence, tobacco use. PAST SURGICAL HISTORY: Includes knee, hysterectomy, shoulder, and neck. ALLERGIES: No known drug allergies. CURRENT MEDICATIONS: Include Levaquin 500 mg daily. She is on Floranex daily. She is on Protonix 40 mg b.i.d., metoprolol 50 mg daily, Glucophage 500 mg b.i.d. with meals, Synthroid 100 mcg daily, glipizide 10 mg b.i.d. q.a.c. She is on intermediate resistance sliding scale. Colace 100 mg b.i.d., Tessalon Perles 100 mg t.i.d., Lantus 20 units at bedtime, [place] 10/325 one tab every 4 hours p.r.n., Eliquis 2.5 mg b.i.d., Ventolin 2.5 mg b.i.d., and MiraLax 17 grams in 8 ounces of water daily. HABITS: No current alcohol use. Does have history of tobacco use. FAMILY HISTORY: Noncontributory. SOCIAL HISTORY: The patient is hoping to return home with her daughter. REVIEW OF SYSTEMS: GENERAL: Does complain of some weakness. HISTORY AND PHYSICAL [id number] BASIL ROSALES HEENT: She denies cold, cough, or congestion. CARDIOVASCULAR: Denies chest pain. PHYSICAL EXAMINATION: VITAL SIGNS: Stable, afebrile. GENERAL: Elderly female, in no acute distress upon exam. HEENT: Normocephalic and atraumatic. Mucosa moist. NECK: Supple. No lymphadenopathy. LUNGS: Clear. HEART: Regular rate and rhythm. ABDOMEN: Benign. EXTREMITIES: Does have some edema. NEUROLOGIC: She seems intact. On her postop site, the swelling does appear normal at this time. LABORATORY DATA: White count of 6.3, H&H of 12 and 35, and platelet count was noted to be 253. Sodium is 142, potassium 3.8, BUN and creatinine of 14 and 0.6, and blood sugar is noted to be 105. ASSESSMENT: This is an 81-year-old female patient admitted to rehab with a working diagnosis of status post gamma nail secondary to a right intertrochanteric hip fracture. The patient has potential to make improvement. We will institute the following multidisciplinary therapies including, but not limited to physical, occupational, respiratory, speech, nutritional services, prosthetics and orthotics. Given her complex condition and risk for more complications, rehabilitation services cannot be provided at a low level of care such as a intermediate facility. PLAN: 1. Admit to [facility] rehab for intensive inpatient therapy to include the following disciplines: A. Physical therapy to improve gait, all transfer skills and bed mobility to a modified independent level. B. Occupational therapy to improve activities of daily living to a modified independent level. C. Case management to assist with discharge planning and placement options. D. Nutrition to assist with nutritional needs. E. Rehabilitation nursing to assist in monitoring the patient's underlying medical conditions and to assist with any type of bowel or bladder management. 2. The patient's current medication and medical care will be continued. 3. The patient will be placed on standard fall precautions. 4. The patient's estimated length of stay is approximately 7-10 days. 5. Discuss this patient during care team staff meeting this week. TRANSINT:[id number] Voice Confirmation ID: [id number] DOCUMENT ID: [id number] MARYLOU notes whether there has been none or any medical/functional change since admission: - no change since prescreen MARYLOU attests patient continues to be appropriate for IRF: - continues to be appropriate HISTORY AND PHYSICAL [id number] BASIL ROSALES SCOTT MD at 1709 CC: [id number] DICTATION DATE: 02/28/17902 BELT LINE FEEDER: 02/28/17 0951 DIS IN 03/15/17 [place] [id number] [place] [address]
--- NOTE | 2017-05-12 16:26 | DS ---
PATIENT:BASIL ROSALES :37 MEDICAL RECORD: [id number] DISCHARGE SUMMARY ADMISSION DATE: 02/27/17 DISCHARGE DATE: 03/15/17 This is a discharge dated 03/15/2017 from inpatient rehab. PRIMARY DIAGNOSIS: Decreased functional ability and ability to provide activities of daily living secondary to a right hip fracture status post repair. SECONDARY DIAGNOSES: 1. Cerebrovascular accident by history. 2. Blind in the right eye. 3. Diabetes. 4. Hypothyroidism. 5. Chronic obstructive pulmonary disease. 6. Chronic hypoxic respiratory failure. 7. Tobacco abuse. 8. Hypertension. 9. Hypokalemia. 10. Chronic suprapubic catheter. HOSPITAL COURSE: Full H&P is located elsewhere on the chart on this 81-year-old female who was admitted to inpatient rehab for physical therapy and occupational therapy to improve gait, transfer skills, bed mobility, and activities of daily living to a modified independent level. She was evaluated by PT and OT and their plans of care were followed. She required group home care for observation and assessment and medication administration. Electrolytes were managed by protocol. Fingerstick blood sugars were monitored throughout her hospital stay with appropriate adjustment in medications as needed. She remained on supplemental oxygen to keep sats greater than 90%. She was on DuoNebs nebulized for respiratory support and Levaquin for antibiotic coverage. She was cooperative with therapies, progressing towards goals. Case management was involved for discharge planning. She was considered stable for discharge on 03/15/2017. She was able to walk with a rolling walker 120 feet with minimal standby assistance for transfers. DISCHARGE MEDICATIONS: As per discharge medication reconciliation. DISCHARGE DISPOSITION: The patient is discharged home. She will continue her current diet and level of activity. She will have home health services for continued PT and OT. She will follow up with primary care and specialists as directed. At least 30 minutes was spent in this discharge activity. TRANSINT:[id number] Voice Confirmation ID: [id number] DOCUMENT ID: [id number] Dictated By: DELANO REYNA I have interviewed/examined the above patient and agree with these documented findings. DISCHARGE SUMMARY REPORT [id number] BASIL ROSALES SCOTT MD at 1626 at 1628 CC: [id number] DICTATION DATE: 05/11/17 1042 ACETYLENE GAS COMPRESSOR: 05/11/17 1342 DIS IN 03/15/17 [place] [id number] [place] [id number]
== END 2017-03-15 12:12 | disposition home health service (06) | DRG 536 ==
LOC: D.REHAB 14:37
PROVIDERS: ADMIT Emergency Medicine
DX: S72.141A Displaced intertrochanteric fracture of right femur, initial encounter for closed fracture (principal); E11.9 Type 2 diabetes mellitus without complications; H54.61 Unqualified visual loss, right eye, normal vision left eye; E03.9 Hypothyroidism, unspecified; J44.9 Chronic obstructive pulmonary disease, unspecified; F17.200 Nicotine dependence, unspecified, uncomplicated; R42 Dizziness and giddiness; I10 Essential (primary) hypertension; Z99.81 Dependence on supplemental oxygen

== ENCOUNTER 2018-07-10 13:41 | Inpatient (IN) | payer MEDICARE ==
[~2018-07-10] VITALS: Ht 170.2 cm; Wt 73.0 kg
--- NOTE | ~2018-07-10 | HEMODYNAMI ---
PATIENT:BASIL ROSALES MEDICAL RECORD: [id number] : 37 LOCATION: D.2226 ADMISSION DATE: 07/11/18 Generatedon:07/17/201814:45 Patient name: BASIL ROSALES Patient #: [id number] SSN: DO B: 1935 Date of study: 07/17/2018 Page: Of Hemodynamic Procedure Report Patient Data Patient Demographics Procedure consent was obtained First Name: BASIL Gender: Female Last Name: CONNIE : 1935 [facility] Initial: Justin Age: 82 year(s) Patient #: [id number] Race: Additional ID: [id number] Contact details Address: [address] [place] [address] STREET State: [place] City: [facility] Zip code: [address] Past Medical History History of disease Date Diagnosis Comments CAD COPD Hypertension Diabetes Allergies: No known allergies Admission Admission Data Admission Date: 07/11/2018 Admission Time: 10:42 Room #: D.2226 Height (in.): 67 BSA: 1.84 (m2) Height (cm.): 170.18 BMI: 25.06 (kg/m2) Weight (lbs.): 160 Weight (kg.): 72.57 Procedure Procedure Types Cath Procedure Peripheral Cath Diagnostic Procedure Nephro Nephrostomy w/ Ureteral Stent Procedure Description Procedure Date Procedure Date: 07/17/2018 Procedure Start Time: 14:18 Procedure Staff Name Function Clovis Deutsch MD Performing Physician Delmis Crarillo RT Development Editor Aisha Springer RN Nurse Zackary Roland RT Scrub Procedure Data Cath Procedure Fluoroscopy Diagnostic fluoroscopy Total fluoroscopy Time: 0 time: 0 min min Diagnostic fluoroscopy Total fluoroscopy dose: 71 dose: 71 mGy mGy Contrast Material Contrast Material Type Amount (ml) Isovue 300 25 Procedure Medications Medication Administration Route Dosage Heparin Flush Bag added to field 1 bags (1000units/500ml NS) Lidocaine 1% added to field 20 unlisted medication 1 Versed I.V. 0.5 mg Fentanyl I.V. 25 mcg Fentanyl I.V. 25 mcg Versed I.V. 0.5 mg Fentanyl I.V. 25 mcg Versed I.V. 0.5 mg Hemodynamics Rest BSA: 1.84 (m2) O2 Consumption: Estimated: 171.31 (ml/min) O2 Consumption indexed : Estimated:93.1 (ml/min/m) Heart Rate: 79 (bpm) Snapshots Pre Cath Intra NCS Post Cath Vital Signs Time Heart Resp SPO2 etCO2 NIBP Rhythm Pain Sedation Rate (ipm) (%) (mmHg) (mmHg) Status Level (bpm) 13:58:31 91 94 0 109/58(83) NSR 0 (11) 10(A) , No pain 14:02:43 111 24 94 0 108/52(73) NSR 0 (11) 10(A) , No pain 14:07:05 83 14 30 105/52(79) NSR 0 (11) 10(A) , No pain 14:11:17 91 99 31.5 109/58(81) NSR 0 (11) 10(A) , No pain 14:15:27 86 1 98 30 111/57(83) NSR 0 (11) 10(A) , No pain 14:19:41 91 98 27.8 111/60(84) NSR 0 (11) 9(A) , No pain 14:23:34 93 99 28.5 113/56(80) NSR 0 (11) 8(A) , No pain 14:27:50 96 14 98 28.5 118/60(82) NSR 0 (11) 8(A) , No pain 14:31:54 95 10 99 30.8 119/63(94) NSR 0 (11) 8(A) , No pain 14:36:10 102 5 98 33.8 111/56(85) NSR 0 (11) 8(A) , No pain 14:40:26 91 98 31.5 109/58(87) NSR 0 (11) 8(A) , No pain 14:44:36 98 19 98 31.5 128/71(94) NSR 0 (11) 8(A) , No pain Medications Time Medication Route Dose Verified Delivered Reason Notes Effe ctiveness by by 14:20:04 Heparin Flush added 1 Clovis Brannon used for Bag to bags Deutsch Deutsch procedure (1000units/500ml field MD NUR NS) 14:20:15 Lidocaine 1% added 20ml Clovis Brannon for local to vial Deutsch Deutsch anesthetic field MD NUR 14:20:35 cefepime iv 1 gm Clovis Leonard Per Deutsch Gian RN physician 14:20:59 Versed I.V. 0.5 Clovis Leonard for mg Deutsch Gian RN sedation 14:21:09 Fentanyl I.V. 25 Clovis Leonard for mcg Deutsch Gian RN sedation 14:27:07 Fentanyl I.V. 25 Clovis Leonard for mcg Deutsch Gian RN sedation 14:27:14 Versed I.V. 0.5 Clovis Tarangoody for mg Deutsch Gian RN sedation 14:33:27 Fentanyl I.V. 25 Clovis Leonard for mcg Deutsch Gian RN sedation 14:33:34 Versed I.V. 0.5 Clovis Leonard for mg Deutsch Gian RN sedation MD Procedure Log Time Note 13:44:08 Patient Height : 67 inches 13:44:11 Patient Weight : 160 lbs 13:54:18 Time tracking: Regular hours (M-F 7:00 - 5:00) 13:54:41 Plan of Care:Hemodynamics will remain stable., Cardiac rhythm will remain stable., Comfort level will be maintained., Respiratory function will remain adequate., Patient/ family verbilizes understanding of procedure., Procedure tolerated without complication., Recovers from procedure without complications.. 13:54:59 Patient received from Med/Surg to IR Alert and oriented. Tansferred to table in Prone position. 13:57:20 Vital chart was started 13:57:22 Baseline sample Acquired. 13:57:23 Full Disclosure recording started 13:57:48 Correct patient and procedure confirmed by team. 13:57:51 Signed procedure consent form obtained from patient. 13:57:52 ECG and BP/O2 sat monitors applied to patient. 13:58:03 Baseline sample Acquired. 13:58:09 - 13:58:15 H&P Date Dictated: 07/17/2018 Within 30 days and on chart.. 13:58:18 Pre-procedure instructions explained to patient. 13:58:18 Pre-op teaching completed and patient verbalized understanding. 13:58:25 Family in waiting room. 13:58:27 Patient NPO since Midnight. 13:58:35 Patient allergic to No known allergies 13:58:39 Is the patient allergic to Iodine/contrast media? No. 13:58:42 Is patient on blood thinner?No 13:58:44 Patient diabetic? Yes. 13:58:47 If diabetic: On Metformin? Yes 13:58:58 If on Metformin: Last Dose? 07/16/2018 13:59:01 - 13:59:04 ----Pre-sedation anethsthesia assessment.---- 13:59:16 Previous problem with sedation/anesthesia? No ? 13:59:27 Snore? No 13:59:29 Sleep apnea? No 13:59:33 Deviated septum? No 13:59:36 Opens mouth fully? Yes 13:59:37 Sticks out tongue? Yes 13:59:47 Airway obstruction? Yes chf and copd 13:59:53 Dentures? No ? 14:00:04 IV patent on arrival in right wrist with D5/.45%NaCl at KVO. 14:00:14 Left Renal was prepped with chlora-prep and draped in sterile fashion. 14:00:18 - 14:00:23 Use device set IR Diagnostic 14:00:26 Sterile Angiographic Pack opened to sterile field. 14:00:27 Bag Decanter (2002S) opened to sterile field. 14:00:56 KIT, INTRODUCER ACCUSTICK II W/C ([id number]) opened to sterile field. 14:00:57 Abscession 8Fr drainage catheter ([id number]) opened to sterile field. 14:00:57 BAG, DRAINAGE EMPTY 600ML W/APOORVA (YKX240) opened to sterile field. 14:14:45 - 14:15:01 Physician arrived 14:15:03 --------ALL STOP TIME OUT------ 14:15:03 Final Timeout: patient, procedure, and site verified with staff and physician. All members of the team are in agreement. 14:18:24 Procedure started. 14:18:34 Local anesthetic to Left Renal area with Lidocaine 1% by Clovis farmer MD.INITIAL ACCESS ONLY 14:20:04 Heparin Flush Bag (1000units/500ml NS) 1 bags added to field was administered by Clovis Deutsch MD; used for procedure; 14:20:15 Lidocaine 1% 20ml vial added to field was administered by Clovis Deutsch MD; for local anesthetic; 14:20:35 cefepime 1 gm iv was administered by Aisha Springer RN; Per physician; 14:20:59 Versed 0.5 mg I.V. was administered by Aisha Springer RN; for sedation; 14:21:09 Fentanyl 25 mcg I.V. was administered by Aisha Springer RN; for sedation ; 14:26:41 ROADRUNNER .035 145 glide wire ([id number]) opened to sterile field. 14:26:42 GLIDE CATHETER 4FR Straight 65cm (CG412) opened to sterile field. 14:26:53 AMPLATZ Super stiff 180cm wire ([id number]) opened to sterile field. 14:27:[address] ST[address] 3-Way Large Bore ([id number]) opened to sterile field. 14:27:07 Fentanyl 25 mcg I.V. was administered by Aisha Springer RN; for sedation ; 14:27:14 Versed 0.5 mg I.V. was administered by Aisha Springer RN; for sedation; 14:29:02 PEEL-A-WAY INTRODUCER 9FR. opened to sterile field. 14:29:42 [place] Sci 8FR.X 24CM Ureteral Stent ([id number]) opened to sterile field. 14:33:27 Fentanyl 25 mcg I.V. was administered by Aisha Springer RN; for sedation ; 14:33:34 Versed 0.5 mg I.V. was administered by Aisha Springer RN; for sedation; 14:37:25 8fr drain and an 8x24 stent was placed in the left kidney and ureter, sutured in place with 2.0 ethilon 14:38:23 SUTURE ETHILON 2-0 BLK MONO FS opened to sterile field. 14:41:01 Procedure ended.(Physican Out) 14:41:19 Contrast amount:Isovue 300 25ml. 14:41:24 Fluoroscopy time 00.00 minutes. 14:41:29 Fluoroscopy dose: 71 mGy 14:41:29 Flurop Dose total: 71 14:41:45 Tegaderm 6 x 8 (4238) opened to sterile field. 14:44:42 Procedure and supply charges have been captured, reviewed, submitted an d are correct. 14:45:27 Report given to Med/Surg. 14:45:56 Vital chart was stopped Device Usage Item Name Manufacture Quantity Catalog Hospital Part Current [facility] l Lot# / Number Charge Number Stock Stock Serial# Code Sterile Cardinal [address] [id number] 5 Angiographic Health Pack Bag Decanter Microtek 1 812126 29669 245526 5 () Medical Inc. KIT, [place] 1 [id number] 904668 546148 686092 5 [id number] INTRODUCER Scientific ACCUSTICK II W/C ([id number]) Abscession Angiodynamics 1 [id number] 878430 600369 582737 5 8Fr drainage catheter (06269408) BAG, [facility] 1 [id number] 070218 586167 879419 5 DRAINAGE EMPTY 600ML W/APOORVA (DZQ846) [facility] 1 O48783 476993 689823 318916 5 9646120 .035 145 glide wire (Q82949) GLIDE Terumo 1 CG412 872572 333253 5 CATHETER 4FR Straight 65cm (CG412) AMPLATZ [place] 1 [id number] 488313 263864 790192 5 Super stiff Scientific 180cm wire ([id number]) STOPCOCK [facility] 1 H53991 152514 7196 090094 [id number] 3-Way Large Bore (Z24874) PEEL-A-WAY [facility] 1 S78557 846953 505093 171902 5 INTRODUCER 9FR. [place] Sci [place] 1 [id number] 635294 273138 417893 5 8FR.X 24CM Scientific Ureteral Stent ([id number]) SUTURE Ethicon 1 664H 489298 506496 5 ETHILON 2-0 BLK MONO FS Tegaderm 6 x 3M 1 1628 806864 450170 5 8 (1075) Signature Audit [place] Stage Time Signature Unsigned Intra-Procedure 07/17/2018 Delmis Carrillo 2:45:52 PM RT(R) [facility] [address] [place] [address]
--- NOTE | ~2018-07-10 | HEMODYNAMI ---
PATIENT:BASIL ROSALES MEDICAL RECORD: [id number] : 37 [facility]2226 [id number] ADMISSION DATE: 07/11/18 Generatedon:07/21/20189:38 Patient name: BASIL ROSALES Patient #: [id number] SSN: DO B: 1935 Date of study: 07/21/2018 Page: Of Hemodynamic Procedure Report Patient Data Patient Demographics Procedure consent was obtained First Name: BASIL Gender: Female Last Name: CONNIE : 1935 [facility] Initial: Justin Age: 82 year(s) Patient #: [id number] Race: Additional ID: [id number] Contact details Address: [address] [place] [address] STREET State: [place] City: [facility] Zip code: [address] Past Medical History History of disease Date Diagnosis Comments CAD COPD Hypertension Diabetes Allergies: No known allergies Admission Admission Data Admission Date: 07/11/2018 Admission Time: 10:42 Room #: D.2226 Height (in.): 67 BSA: 1.84 (m2) Height (cm.): 170.18 BMI: 25.06 (kg/m2) Weight (lbs.): 160 Weight (kg.): 72.57 Procedure Procedure Types Cath Procedure Peripheral Cath Diagnostic Procedure Nephro Nephrostomy Tube Removal Procedure Description Procedure Date Procedure Date: 07/21/2018 Procedure Start Time: 9:29 Procedure End Time: 9:38 Procedure Staff Name Function Ludwig Joaquin MD Performing Physician Na Bai Monitor Aisha Springer RN Nurse Zackary Roland RT Scrub Procedure Data Cath Procedure Fluoroscopy Diagnostic fluoroscopy Total fluoroscopy Time: 0.3 time: 0.3 min min Diagnostic fluoroscopy Total fluoroscopy dose: 30 dose: 30 mGy mGy Contrast Material Contrast Material Type Amount (ml) Isovue 300 15 Hemodynamics Rest BSA: 1.84 (m2) O2 Consumption: Estimated: 250.24 (ml/min) O2 Consumption indexed : Estimated:136 (ml/min/m) Pre Cath Intra NCS Post Cath Procedure Log Time Note 8:07:48 Patient Height : 67 inches 8:07:48 Patient Weight : 160 lbs 8:50:32 Zackary COY ([place]) (CV) sent for patient. Start room use. 8:50:36 Time tracking: Regular hours (M-F 7:00 - 5:00) 8:50:50 Plan of Care:Hemodynamics will remain stable., Cardiac rhythm will remain stable., Comfort level will be maintained., Respiratory function will remain adequate., Patient/ family verbilizes understanding of procedure., Procedure tolerated without complication., Recovers from procedure without complications.. 8:53:30 Patient received from Med/Surg to IR Alert and oriented. Tansferred to table in Prone position. 8:53:39 Warm blankets applied for patient comfort. 8:53:40 Correct patient and procedure confirmed by team. 8:53:46 Signed procedure consent form obtained from patient. 9:01:18 H&P Date Dictated: Within 30 days and on chart.. 9:01:52 Pre-procedure instructions explained to patient. 9:01:53 Pre-op teaching completed and patient verbalized understanding. 9:02:17 Family in patients room. 9:02:20 Patient NPO since Midnight. 9:03:01 Patient allergic to No known allergies 9:03:15 Is the patient allergic to Iodine/contrast media? No. 9:03:38 Is patient on blood thinner?Yes 9:03:52 ACC The patient was administered the following blood thiners within the last 24 hours: ACCLovenox 9:04:33 9:05:02 IV patent on arrival in right wrist with 0.9% NaCl at KVO. 9:05:17 Left Lumbar was prepped with chlora-prep and draped in sterile fashion. 9:05:19 Alarms reviewed . 9:05:21 Sharps counted by scrub and verified . 9:06:12 Use device set IR Diagnostic 9:06:17 Bag Decanter () opened to sterile field. 9:06:19 Sterile Angiographic Pack opened to sterile field. 9:06:20 Tegaderm 4 x 4 (1626W) opened to sterile field. 9:28:00 Physician arrived 9:28:01 --------ALL STOP TIME OUT------ 9:28:03 Final Timeout: patient, procedure, and site verified with staff and physician. All members of the team are in agreement. 9:28:44 Left abdomen site verified by team. 9:29:15 Sedation plan: None Medication:Lidocaine 9::23 Procedure started. 9:29:23 Full Disclosure recording started 9:30:29 GLIDE WIRE ANGLE 180cm ([id number]) opened to sterile field. 9:30:42 Contrast is injected into the left nephrostomy tube. 9:31:25 An 0.35glidewire is inserted into the left nephrostomy tube. the tube is removed. 9:33:02 Procedure ended.(Physican Out) 9:33:52 Fluoroscopy time 00.30 minutes. 9:35:01 Fluoroscopy dose: 30 mGy 9:35:01 Flurop Dose total: 30 9:35:14 Contrast amount:Isovue 300 15ml. 9:35:36 Sharps counted by scrub and verified by R.N. 9:35:57 Post-op/insertion site Left Lumbar area dressed using a 4 x 4 and Tegaderm. 9:36:06 Patient needs reinforcement of post procedure teaching. 9:36:07 Post procedure instruction explained to patient.Patient verbalizes understanding. 9:36:17 Procedure and supply charges have been captured, reviewed, submitted and are correct. 9:37:02 See physician's report for complete and final results. 9:37:05 Report given to Med/Surg. 9:37:12 Patient transfered to Med/Surg with Bed. 9:38:20 Procedure ended. 9:38:20 Full Disclosure recording stopped Device Usage Item Name Manufacture Quantity Catalog Hospital Part Current Minimal Lot# / Number Charge Number Stock Stock Serial# Code Bag Decanter Microtek 1 [id number] [id number] 5 () Medical Inc. Sterile Cardinal [address] 569462 [id number] 5 Angiographic Health Pack Tegaderm 4 x 3M 1 1626W 755223 840264 479727 5 4 (1626W) GLIDE WIRE Terumo 1 [id number] 287018 348912 877332 5 ANGLE 180cm (VI5575) Signature Audit [place] Stage Time Signature Unsigned Intra-Procedure 07/21/2018 Na 9:38:48 AM Bhumika Signatures Monitor : Na Signature : Bhumika Date : Time : [place] [address] [place] [address]
[2018-07-10] MEDS ORDERED: BAYER CHEWABLE81 MG PO (14:15)
[2018-07-10 14:16] VITALS: BP 120/65; BMI 25.2
[2018-07-10 15:23] LABS: BASOPHILS 0.2 % (0-2); EOSINOPHILS 0.6 % (0-7); HEMATOCRIT 35.9 % (36.0-48.0); HEMOGLOBIN 11.6 g/dL (12-16); IMMATURE GRANULOCYTES 0.5 % (0-5); LYMPHOCYTES 22.5 % (15-50); MCH 26.6 pg (26.0-34.0); MCHC 32.3 g/dL (31.0-37.0); MCV 82.3 fL (80.0-100.0); MEAN PLATELET VOLUME 8.6 fL (7.4-10.4); MONOCYTES 8.1 % (2-11); NEUTROPHILS 68.1 % (40-80); RBC 4.36 10x6/uL (4.00-5.40); RDW 15.5 % (11.5-14.5); WBC 8.6 10x3/uL (4.8-10.8)
[2018-07-10 15:36] LABS: PLATELET COUNT 298 10x3/uL (130-400)
[2018-07-10 15:52] LABS: ALBUMIN 1.9 g/dL (3.4-5.0); BILIRUBIN - TOTAL 0.37 mg/dL (0.2-1.3); CARBON DIOXIDE 32.4 mmol/L (21.0-32.0); CREATININE - SERUM 1.2 mg/dL (0.6-1.3); PROTEIN - SERUM 6.1 g/dL (6.4-8.2)
[2018-07-10 15:56] LABS: ANION GAP 12.5 mmol/L (8-16); CALCIUM 5.3 mg/dL (8.5-10.1); POTASSIUM - SERUM 1.9 mmol/L (3.5-5.1)
--- NOTE | 2018-07-10 16:41 | NUR ---
SCD'S ON. PATIENT REQUESTED COFFEE. LAYING ON BACK. NO NEEDS AT THIS TIME
[2018-07-10 17:12] LABS: ALBUMIN 1.8 g/dL (3.4-5.0); BILIRUBIN - TOTAL 0.33 mg/dL (0.2-1.3); CARBON DIOXIDE 33.6 mmol/L (21.0-32.0); CREATININE - SERUM 1.2 mg/dL (0.6-1.3); PHOSPHOROUS 2.7 mg/dL (2.5-4.9); PROTEIN - SERUM 5.6 g/dL (6.4-8.2)
[2018-07-10 17:16] LABS: ANION GAP 11.2 mmol/L (8-16); MAGNESIUM - SERUM 0.8 mg/dL (1.8-2.4); POTASSIUM - SERUM 1.8 mmol/L (3.5-5.1)
[2018-07-10 17:17] LABS: CALCIUM 5.3 mg/dL (8.5-10.1)
--- NOTE | 2018-07-10 17:22 | NUR ---
DR RIOS NOTIFIED OF CRITICAL LABS. ORDERS RECD ARE 3 GRAMS MAGNESIUM IV AND FOLLOW ELECTROLYTE PROTOCOL FOR POTASSIUM LEVEL. SEE LAB RESULTS. WILL PLACE ORDERS AND NOTIFY GRETA CEJA.
--- NOTE | 2018-07-10 18:58 | NUR ---
FAMILY IN ROOM. NO NEEDS AT THIS TIME
--- NOTE | 2018-07-10 19:00 | NUR ---
BEDSIDE REPORT RECEIVED AND CARE OF PT ASSUMED. PT LYING IN LOW LLAMAS'S POSITION VISITING WITH FAMILY MEMBERS. IV IN RIGHT FA PATENT WITH LR INFUSING AT 100 ML / HR. MAGNESIUM INFUSING AT 100 ML / HR. WILL MONITOR FOR NEEDS.
--- NOTE | 2018-07-10 20:09 | NUR ---
GAVE K DUR 20 MEQ PO PER ELECTROLYTE PROTOCOL.
--- NOTE | 2018-07-10 21:08 | NUR ---
HS MEDICATIONS GIVEN. FSBS 221 THIS CHECK REQUIRING COVERAGE WITH 8 UNITS OF HUMALOG PER SLIDING SCALE.
--- NOTE | 2018-07-10 21:15 | NUR ---
HS SNACK GIVEN OF DEMI CRACKERS, PEANUT BUTTER, AND 1% MILK PER DIABETIC DIET ORDERS.
[2018-07-10 21:49] VITALS: BP 105/56
--- NOTE | 2018-07-10 22:34 | NUR ---
GAVE 20 MEQ K DUR PER THE ELECTROLYTE PROTOCOL. PLACED ORDER TO RE-CHECK LEVEL IN 4 HOURS.
--- NOTE | 2018-07-11 01:10 | NUR ---
NEW LAB RESULTS: POTASSIUM 1.8 REQUIRING COVERAGE WITH 20 MEQ KDUR PO Q2HR X3 DOSES; MAG 1.2 REQUIRING COVERAGE WITH 1GM IVPB Q1HR X4 DOSES; AND PHOS 2.0 REQUIRING COVERAGE WITH 1 PKT PHOS NaK PO Q4HR X3 DOSES.
[2018-07-11 01:26] LABS: MAGNESIUM - SERUM 1.2 mg/dL (1.8-2.4); POTASSIUM - SERUM 1.8 mmol/L (3.5-5.1)
[2018-07-11 01:52] VITALS: BP 103/44
[2018-07-11 05:13] VITALS: BP 97/52
--- NOTE | 2018-07-11 06:35 | NUR ---
IV INFILTRATED. REMOVED WITH CATHETER TIP INTACT. WARM PACK PLACED ON RIGHT ARM. ATTEMPTED TO RE-SITE X2 WITHOUT SUCCESS. ORDER PLACED FOR ADVANCED ACCESS NURSE TO SITE IV / MIDLINE.
[2018-07-11 08:00] VITALS: BP 116/41
[2018-07-11 11:54] VITALS: BP 121/54
[2018-07-11 12:16] VITALS: BMI 25.2
[2018-07-11 13:08] LABS: BASOPHILS 0.1 % (0-2); EOSINOPHILS 0.4 % (0-7); HEMATOCRIT 34.6 % (36.0-48.0); HEMOGLOBIN 11.3 g/dL (12-16); LYMPHOCYTES 19.4 % (15-50); MCHC 32.7 g/dL (31.0-37.0); MCV 82.8 fL (80.0-100.0); MEAN PLATELET VOLUME 8.4 fL (7.4-10.4); MONOCYTES 7.8 % (2-11); NEUTROPHILS 71.3 % (40-80); PLATELET COUNT 272 10x3/uL (130-400); RBC 4.18 10x6/uL (4.00-5.40); RDW 15.8 % (11.5-14.5); WBC 7.8 10x3/uL (4.8-10.8)
[2018-07-11 13:25] LABS: CARBON DIOXIDE 31.6 mmol/L (21.0-32.0); CREATININE - SERUM 1.2 mg/dL (0.6-1.3)
[2018-07-11 13:38] LABS: ANION GAP 13.8 mmol/L (8-16); CALCIUM 6.6 mg/dL (8.5-10.1); POTASSIUM - SERUM 2.4 mmol/L (3.5-5.1)
[2018-07-11 14:14] LABS: T4 THYROXIN - FREE 0.78 ng/dL (0.76-1.46); THYROID STIMULATING HORMONE 9.17 uIU/mL (0.36-3.74)
[2018-07-11 15:11] VITALS: BP 120/54
--- NOTE | 2018-07-11 18:42 | NUR ---
PATIENT SITTING UP IN BED FOR DINNER, DENIES PAIN OR SHORTNESS OF BREATH, TOLERATING REGULAR DIET WITHOUT NAUSEA, FAMILY AT SIDE, CL IN REACH
--- NOTE | 2018-07-11 19:00 | NUR ---
REPORT RECEIVED AND CARE OF PT ASSUMED. PT LYING IN HIGH LLAMAS'S POSITION POSITION VISITING WITH DAUGHTER. IV IN LEFT HAND PATENT WITH LR INFUSING AT 100 ML / HR. WILL MONITOR FOR NEEDS.
[2018-07-11 20:08] VITALS: BP 118/60
--- NOTE | 2018-07-11 21:28 | NUR ---
HS MEDICATIONS GIVEN TO INCLUDE LAST DOSE OF 20 MEQ KDUR PER THE ELECTROLYTE PROTOCOL. ALSO GAVE IMMODIUM PER REQUEST FOR LOOSE STOOLS. FSBS 155 THIS CHECK REQUIRING COVERAGE WITH 4 UNITS OF HUMALOG PER SLIDING SCALE. PT DECLINED HS SNACK, SHE ATE HER DINNER LATE. WILL CONTINUE TO MONITOR FOR NEEDS.
[2018-07-12 00:46] VITALS: BP 97/39
--- NOTE | 2018-07-12 03:49 | NUR ---
COLLECTED URINE FOR ORDERED STUDIES AND DELIVERED TO LAB.
[2018-07-12 04:05] LABS: APPEARANCE HAZY (CLEAR); BILIRUBIN NEGATIVE (NEGATIVE); COLOR YELLOW (YELLOW); GLUCOSE NEGATIVE (NEGATIVE); KETONE NEGATIVE (NEGATIVE); NITRITE NEGATIVE (NEGATIVE); PROTEIN NEGATIVE (NEGATIVE); RED CELLS - URINE 0-5 /hpf (0-5); UROBILINOGEN NORMAL (NORMAL)
[2018-07-12 04:06] LABS: BACTERIA NONE SEEN /hpf (NONE SEEN); EPITHELIAL CELLS RARE /hpf (0-5)
[2018-07-12 05:56] LABS: BASOPHILS 0.3 % (0-2); EOSINOPHILS 0.8 % (0-7); HEMOGLOBIN 9.6 g/dL (12-16); LYMPHOCYTES 16.2 % (15-50); MCH 26.4 pg (26.0-34.0); MCV 82.4 fL (80.0-100.0); MEAN PLATELET VOLUME 8.5 fL (7.4-10.4); MONOCYTES 7.9 % (2-11); NEUTROPHILS 73.8 % (40-80); PLATELET COUNT 281 10x3/uL (130-400); RBC 3.64 10x6/uL (4.00-5.40); RDW 16.1 % (11.5-14.5); WBC 7.6 10x3/uL (4.8-10.8)
[2018-07-12 06:34] LABS: CARBON DIOXIDE 29.1 mmol/L (21.0-32.0); CREATININE - SERUM 1.1 mg/dL (0.6-1.3); MAGNESIUM - SERUM 1.4 mg/dL (1.8-2.4)
[2018-07-12 06:36] LABS: PHOSPHOROUS 3.4 mg/dL (2.5-4.9)
[2018-07-12 06:38] LABS: ANION GAP 13.9 mmol/L (8-16)
[2018-07-12 06:39] LABS: CALCIUM 6.4 mg/dL (8.5-10.1)
[2018-07-12 07:24] LABS: CA 19-9 70 U/mL (0-35); CA125 260.2 U/mL (0.0-38.1)
--- NOTE | 2018-07-12 07:55 | NUR ---
PT RESTING IN BED WITH FAMILY AT BEDSIDE. NO ACUTE DISTRESS NOTED. IV TO LEFT HAND WITH LR @ 100ML/HR INFUSING VIA PUMP. SITE WITHOUT REDNESS OR EDEMA. DENIES PAIN AT THIS TIME. DENIES FURTHER NEEDS PRESENTLY. CL WITHIN REACH. ENCOURAGED TO CALL WITH NEEDS. CONTINUE POC
[2018-07-12 08:08] VITALS: BP 97/40
--- NOTE | 2018-07-12 08:30 | NUR ---
PT RECEIVED CL DIET FOR BREAKFAST. PT REQUEST FOR REGULAR DIET. INFORMED PT AND FAMILY OF MD ORDERS FOR CLEAR LIQUID DIET. INFORMED PT THAT STAFF WOULD NOTIFY MD OF ORDER AND CLARIFY.
[2018-07-12 11:11] LABS: CA 27-29 15.3 U/mL (0.0-38.6)
--- NOTE | 2018-07-12 13:30 | NUR ---
PT SITTING UP ON SIDE OF BED VISITING WITH FAMILY. NO ACUTE DISTRESS NOTED. DENIES FURTHER NEEDS AT THIS TIME. CL WITHIN REACH. WILL CONTINUE TO MONITOR.
[2018-07-12 16:31] VITALS: BP 107/49
--- NOTE | 2018-07-12 19:30 | NUR ---
RECEIVED REPORT, ASSUMED CARE, NO S/S OF DISTRESS NOTED, CALL LIGHT IN REACH, BED LOWEST POSITION, WILL CONTINUE POC
[2018-07-12 20:01] VITALS: BP 127/87
[2018-07-13] VITALS (13 sets, daily range): BP systolic 113–143; BP diastolic 49–85; Ht 170.2 cm; Wt 73.0 kg
--- NOTE | 2018-07-13 04:48 | NUR ---
I have reviewed this patient and I concur with the Shift Assessment completed by the Licensed Practical Nurse today this shift.
[2018-07-13 05:46] LABS: HEMATOCRIT 31.4 % (36.0-48.0); MCH 26.5 pg (26.0-34.0); MCHC 31.8 g/dL (31.0-37.0); MCV 83.1 fL (80.0-100.0); MEAN PLATELET VOLUME 8.5 fL (7.4-10.4); PLATELET COUNT 270 10x3/uL (130-400); RBC 3.78 10x6/uL (4.00-5.40); RDW 16.2 % (11.5-14.5); WBC 8.8 10x3/uL (4.8-10.8)
[2018-07-13 06:27] LABS: EOSINOPHILS 2 % (0-7); LYMPHOCYTES 21 % (15-50); MONOCYTES 4 % (2-11); NEUTROPHILS 73 % (40-80); PLATELET ESTIMATE NORMAL
[2018-07-13 07:42] LABS: INR 1.34 (0.85-1.17)
[2018-07-13 07:43] LABS: APTT 31.8 SECONDS (22.8-39.4)
[2018-07-13 08:03] LABS: ANION GAP 12.7 mmol/L (8-16); CALCIUM 7.1 mg/dL (8.5-10.1); CARBON DIOXIDE 30.4 mmol/L (21.0-32.0); CREATININE - SERUM 1.1 mg/dL (0.6-1.3); MAGNESIUM - SERUM 1.4 mg/dL (1.8-2.4); PHOSPHOROUS 2.8 mg/dL (2.5-4.9); POTASSIUM - SERUM 3.1 mmol/L (3.5-5.1)
--- NOTE | 2018-07-13 11:55 | NUR ---
FAMILY REQUESTS THAT INFORMATION BE GIVEN TO TREY AND OR MARITZA FOR ACCURATE INFORMATION GETTING TO THE REST OF THE FAMILY.
--- NOTE | 2018-07-13 20:00 | NUR ---
ALERT SITTING UP IN BED FAMILY AT BEDSIDE DENIES [AIN OR NEEDS AT THIS TIEM CALL LIGHT IN REACH
[2018-07-14 00:18] VITALS: BP 123/67
[2018-07-14 07:04] LABS: BASOPHILS 0.2 % (0-2); EOSINOPHILS 1.4 % (0-7); HEMATOCRIT 28.9 % (36.0-48.0); HEMOGLOBIN 9.2 g/dL (12-16); IMMATURE GRANULOCYTES 1.3 % (0-5); LYMPHOCYTES 14.6 % (15-50); MCH 26.6 pg (26.0-34.0); MCHC 31.8 g/dL (31.0-37.0); MCV 83.5 fL (80.0-100.0); MEAN PLATELET VOLUME 8.5 fL (7.4-10.4); MONOCYTES 7.4 % (2-11); NEUTROPHILS 75.1 % (40-80); PLATELET COUNT 255 10x3/uL (130-400); RBC 3.46 10x6/uL (4.00-5.40); RDW 16.4 % (11.5-14.5); WBC 8.4 10x3/uL (4.8-10.8)
[2018-07-14 07:06] LABS: ANION GAP 14.2 mmol/L (8-16); CARBON DIOXIDE 28.1 mmol/L (21.0-32.0); MAGNESIUM - SERUM 1.5 mg/dL (1.8-2.4); PHOSPHOROUS 2.7 mg/dL (2.5-4.9); POTASSIUM - SERUM 3.3 mmol/L (3.5-5.1)
[2018-07-14 07:36] LABS: CALCIUM 6.9 mg/dL (8.5-10.1)
[2018-07-14 08:29] VITALS: BP 128/49
--- NOTE | 2018-07-14 12:12 | NUR ---
NUTRITION F/U PT CURRENTLY NPO FOR PROCEDURE. WILL PROVIDE FULL LIQUID DIET WHEN RESUMED. MONITOR DIET ADVANCEMENT. RD FOLLOWING
[2018-07-14 12:46] VITALS: BP 123/68
--- NOTE | 2018-07-14 14:58 | MORECARE ---
CASE MANAGEMENT DISCHARGE SUMMARY PATIENT: BASIL ROSALES UNIT: [id number] ADM DATE: 07/11/18 AGE: 82 : 36 SEX: F ROOM/BED: D.2226 AUTHOR: ZENOBIA LESLIE PHYSICIAN: REFERRING PHYSICIAN: FELICIA NUNEZ MD DATE OF SERVICE: 07/14/18 Discharge Plan Patient Name: BASIL ROSALES Facility: [facility]:[place] : 1935 Planned Disposition: Home Anticipated Discharge Date: Discharge Date: Expected LOS: Initial Reviewer: [email or web address] Initial Review Date: 07/10/2018 Generated: 07/14/18 3:57 pm Comments DCP- Discharge Planning Updated by [email or web address]: Fabiana Russ on 07/12/18 5:[address] CM CONSULT FOR DISCHARGE PLANNING RECEIVED. REVIEWED MD NOTES. APPEARS WORKUP AND STAGING IN PROGRESS FOR METASTATIC DISEASE. PATIENT DOES HAVE FAMILY THAT VISITS. CM PLANS TO MEET WITH THE PATIENT FOR ASSESSMENT AND SPEAK WITH FAMILY IF SHE GIVES PERMISSION. DCPIA - Discharge Planning Initial Assessment Updated by [email or web address]: Franny Mckeon on 07/14/18 2:56 pm * Is the patient Alert and Oriented? Yes * How many steps to enter\exit or inside your home? * PCP ENRIQUE * Pharmacy [facility] * Preadmission Environment Home with Family * ADLs Partial Dependent * Partial ADLs (Assistance needed) Bathing Medication Management Toileting * Equipment Bedside Commode Elevated [facility] Bed Rolling Walker Shower Chair Walker Wheelchair * List name and contact numbers for known caregivers / representatives who currently or will assist patient after discharge: TREY (DAUGHTER) [phone] * Verbal permission to speak to the caregivers and representatives has been obtained from the patient. Yes * Community resources currently utilized None * Additional services required to return to the preadmission environment? Yes * Can the patient safely return to the preadmission environment? Yes * Has this patient been hospitalized within the prior 30 days at any hospital? No Patient Name: BASIL ROSALES Page 59264 at 1458 All edits/amendments must be made on the electronic document DICTATION DATE: 07/14/181456 PREMIUM CANCELLATION CLERK: BRIAN 07/14/181456 RPT#: [id number] DC DATE: STATUS: ADM IN [facility] [address] [facility] [place] [address] END OF REPORT
--- NOTE | 2018-07-14 15:05 | MORECARE ---
CASE MANAGEMENT DISCHARGE SUMMARY PATIENT: BASIL ROSALES UNIT: [id number] ADM DATE: 07/11/18 AGE: 82 : 36 SEX: F ROOM/BED: D.2226 AUTHOR: ANUJDOC PHYSICIAN: REFERRING PHYSICIAN: FELICIA NUNEZ MD DATE OF SERVICE: 07/14/18 Discharge Plan Patient Name: BASIL ROSALES Facility: [facility]:[place] : 1935 Planned Disposition: Home Anticipated Discharge Date: Discharge Date: Expected LOS: Initial Reviewer: [email or web address] Initial Review Date: 07/10/2018 Generated: 07/14/18 4:05 pm Comments DCP- Discharge Planning Updated by [email or web address]: Franny Mckeon on 07/14/18 1:[address] Patient Name: BASIL ROSALES Admission Status: Urgent Accout number: [id number] Admission Date: 07-11-2018 : 1935 Admission Diagnosis: Attending: FELICIA NUNEZ Current LOS: 3 Anticipated DC Date: Planned Disposition: Home Primary Insurance: MEDICARE A & B Discharge Planning Comments: CM met with patient to complete initial dc planning assessment. CM educated patient on the CM role and verbal consent given by patient to complete assessment. Patient lives at home with her daughter Trey. At discharge patient plans to return and feels this is a safe discharge. CM discussed availability of home health, rehab services, and medical equipment. Patient has a BSC, walker, hospital bed, wheelchair, shower chair, handicap bathroom elevated toilet seat at home. Her daughter Trey will be her clamp truck driver home at [place]. They are waiting on test results to see how to proceed with treatment options. CM will continue to follow and will assist as needed with dc plans/needs. Claim Approver: Franny Mckeon DCP- Discharge Planning Updated by [email or web address]: Fabiana Russ on 07/12/18 5:[address] CM CONSULT FOR DISCHARGE PLANNING RECEIVED. REVIEWED MD NOTES. APPEARS WORKUP AND STAGING IN PROGRESS FOR METASTATIC DISEASE. PATIENT DOES HAVE FAMILY THAT VISITS. CM PLANS TO MEET WITH THE PATIENT FOR ASSESSMENT AND SPEAK WITH FAMILY IF SHE GIVES PERMISSION. DCPIA - Discharge Planning Initial Assessment Updated by [email or web address]: Franny Mckeon on 07/14/18 2:56 pm * Is the patient Alert and Oriented? Yes * How many steps to enter\exit or inside your home? * PCP NUNEZ * Pharmacy [facility] * Preadmission Environment Home with Family * ADLs Partial Dependent * Partial ADLs (Assistance needed) Bathing Medication Management Toileting * Equipment Bedside Commode Elevated [facility] Bed Rolling Walker Shower Chair Walker Wheelchair * List name and contact numbers for known caregivers / representatives who currently or will assist patient after discharge: TREY (DAUGHTER) [phone] * Verbal permission to speak to the caregivers and representatives has been obtained from the patient. Yes * Community resources currently utilized None * Additional services required to return to the preadmission environment? Yes * Can the patient safely return to the preadmission environment? Yes * Has this patient been hospitalized within the prior 30 days at any hospital? No Last DP export: 07/14/18 1:58 pm Patient Name: BASIL ROSALES Page 92317 at 1505 All edits/amendments must be made on the electronic document DICTATION DATE: 07/14/18 1505 SOUND RECORDIST: BRIAN 07/14/18 1505 RPT#: [id number] DC DATE: STATUS: ADM IN [facility] [address] [place] [address] END OF REPORT
[2018-07-14 16:47] VITALS: BP 126/61
--- NOTE | 2018-07-14 19:00 | NUR ---
PT IN BED IN LOW FOWLERS POSITION. RESPIRATIONS EVEN AND UNLABORED. VS STABLE AND AFEBRILE. NO VISUAL CUES OF DISTRESS NOTED. WILL CONTINUE TO MONITOR.
[2018-07-14 20:00] VITALS: BP 103/49
[2018-07-15 04:00] VITALS: BP 108/63
[2018-07-15 06:38] LABS: BASOPHILS 0.2 % (0-2); EOSINOPHILS 1.1 % (0-7); HEMATOCRIT 29.1 % (36.0-48.0); HEMOGLOBIN 9.1 g/dL (12-16); IMMATURE GRANULOCYTES 1.5 % (0-5); LYMPHOCYTES 13.3 % (15-50); MCH 26.4 pg (26.0-34.0); MCHC 31.3 g/dL (31.0-37.0); MCV 84.3 fL (80.0-100.0); MEAN PLATELET VOLUME 8.5 fL (7.4-10.4); NEUTROPHILS 77.9 % (40-80); PLATELET COUNT 258 10x3/uL (130-400); RBC 3.45 10x6/uL (4.00-5.40); RDW 16.8 % (11.5-14.5); WBC 8.8 10x3/uL (4.8-10.8)
[2018-07-15 07:08] LABS: ANION GAP 11.3 mmol/L (8-16); CARBON DIOXIDE 28.3 mmol/L (21.0-32.0); CREATININE - SERUM 0.9 mg/dL (0.6-1.3); MAGNESIUM - SERUM 1.3 mg/dL (1.8-2.4); PHOSPHOROUS 3.1 mg/dL (2.5-4.9); POTASSIUM - SERUM 3.6 mmol/L (3.5-5.1)
--- NOTE | 2018-07-15 07:30 | NUR ---
A/A/OX4. REMAINS NPO FOR SURGERY THIS AM AND IS AWARE OF THIS. NO REQUESTS VOICED. ASSESSMENT COMPLETED. BED IN LOW POSITION AND LOCKED. SIDERAILS UP X 2 AND CALL LIGHT IN REACH. WILL CONTINUE POC.
[2018-07-15 07:33] LABS: CALCIUM 6.9 mg/dL (8.5-10.1)
[2018-07-15 08:21] LABS: SPE - A/G RATIO 0.8 (0.7-1.7); SPE - ALBUMIN 2.4 g/dL (2.9-4.4); SPE - ALPHA-1 GLOBULIN 0.3 g/dL (0.0-0.4); SPE - ALPHA-2 GLOBULIN 1.1 g/dL (0.4-1.0); SPE - BETA GLOBULIN 0.8 g/dL (0.7-1.3); SPE - M-SPIKE Not Observed g/dL (Not Observed); SPE - TOTAL PROTEIN 5.6 g/dL (6.0-8.5)
[2018-07-15 09:24] VITALS: BP 105/57
[2018-07-15 12:00] VITALS: BP 101/71
--- NOTE | 2018-07-15 14:55 | NUR ---
CARE TRANSFERRED TO STEPH BOND RN, REPORT GIVEN
[2018-07-15 15:18] VITALS: BP 124/54
--- NOTE | 2018-07-15 15:30 | NUR ---
RETURNED TO ROOM FROM SURGERY VIA BED. A/A/OX4. DENIES ANY PAIN AT THIS TIME. BRUNER IN PLACE WITH PINK COLORED URINE IN TUBING. V/S STABLE. WILL CONTINUE POC,
--- NOTE | 2018-07-15 17:22 | NUR ---
GOLF [employer]UB HEAD INSPECTOR NOTE- BRUNER HAS SOME BLOODY TINT TO IT. SEEMS WELL RECOVERED AFTER PROCEDURE. WILL BE HAVING ANOTHER TOMORROW. BLOOD GLUCOSE 106. RFA NS AT 160. DRESSING CDI, ORANGE CAPS IN PLACE, NO DISCOMFORT REPORTED. WILL CONTINUE TO MONITOR
--- NOTE | 2018-07-15 19:19 | OP ---
PATIENT NAME: BASIL ROSALES MEDICAL RECORD: [id number] :37 LOCATION:D.MS [id number] ADMISSION DATE:07/11/18 SURGEON: PINO HANKINS MD DATE OF OPERATION: 07/15/2018 SURGEON: Pino Hankins MD ANESTHESIA: General anesthesia by Anival Lowry CRNA PROCEDURE: Cystoscopy, bilateral retrograde pyelogram, right ureteral stent insertion with a 6-English x 22 cm Cook Resonance (metal) stent. Bladder biopsy. SPECIMENS: Bladder biopsy times 2, posterior bladder wall tumors. FINDINGS: On cystoscopy, bilateral single ureteral orifices. Tumors present on the posterior bladder wall. This may be direct invasion from rectal cancer. On the retrograde pyelogram, there is distal ureteral occlusion bilaterally with severe hydroureteronephrosis proximal to the occlusion site. I was able to get past the occlusion on the right side. On the left side, I could not get a wire to get past the occlusion. I will have interventional radiology place a left nephrostomy tube tomorrow and attempt an antegrade left ureteral stent insertion. DIAGNOSES: Probable right upper lobe lung cancer with diffuse bony metastasis, probable rectal cancer with bladder invasion and bilateral hydroureteronephrosis. ESTIMATED BLOOD LOSS: None. CLINICAL HISTORY: This is an 82-year-old female who came in with diarrhea and weakness. She had a CT scan showing a right upper lobe lung mass, which is 5.3 cm in size with central necrosis. There is also diffuse osteoblastic metastasis. She was found on the CT to have bilateral hydroureteronephrosis with bladder wall thickening on the left side. There is mucosal thickening of the anus and the rectum. The bone scan confirms widespread metastatic disease. She had a CT scan, which again confirmed the right upper lobe lung cancer. She had a CT of the head, which did not show any brain metastasis. She had colonoscopy and biopsies of a rectal mass, which almost occludes the rectum completely. The pathology on the rectal mass is still pending. The lung mass is still pending for diagnosis. She is currently on Levaquin and Flagyl. She is to have an attempt at bilateral ureteral stent placement today to relieve the bilateral hydronephrosis. Her creatinine right now is still 1.0. Because she is already on IV antibiotics on the floor, we did not give her any further antibiotics in the OR. DESCRIPTION OF PROCEDURE: The patient was given induction of general anesthesia in the supine position. She was then placed into dorsal lithotomy position and prepped and draped. A 21-English cystoscope was used. The cystoscopic findings are as outlined above. I placed a 5-English open-ended ureteral catheter into the right ureteral orifice and a retrograde pyelogram was performed. She has a quite tight stenosis in the distal ureter. However, I managed to get a Sensor wire past the stenosis up into the renal pelvis. Over the wire, we inserted the ureteral sheath and ureteral catheter for the Vivolux system. Once the sheath was in the renal pelvis, as demonstrated by the radiopaque marker at its proximal tip, then the ureteral catheter and the guidewire were completely OPERATIVE REPORT [id number] BASIL ROSALES. Through the lumen of the ureteral sheath, we inserted the metal stent. Once the stent was in correct position, the stent was held in position using the ureteral catheter holding the stent while the ureteral sheath was withdrawn entirely. This left us with a good stent on the right side. On the left side, the retrograde pyelogram showed an extensive area of stenosis far more lengthy than on the right side. There was also a greater degree of hydroureteronephrosis proximal to it. I tried with the Sensor wire and the Glidewire several times to get into the lumen of the stenotic zone, but at all times the wire kept getting deflected back by the obstruction. At this point, I abandoned further attempts on the left side. I will leave it to interventional radiology tomorrow to get her left side opened up. Finally, there were the two visible large tumors on the bladder wall. I took cold cup biopsy forceps and took biopsies of these tumors. They were sent to pathology in formalin. At the end of the procedure, I placed a 16-English Bowling catheter into the bladder and put this to bag drainage. TRANSINT:[id number] Voice Confirmation ID: [id number] DOCUMENT ID: [id number] PINO HANKINS MD at 1919 CC: [id number] DICTATION DATE: 07/15/181418 CHARGE WEIGHER: 07/15/18 1545 [facility] [address] [place] [address]
[2018-07-15 20:00] VITALS: BP 116/61
--- NOTE | 2018-07-15 21:00 | NUR ---
LYING ON RT SIDE IN BED. ALERT AND ORIENTED X4. DAUGHTER AT BEDSIDE. RESP EVEN AND NONLABORED. BBS CTA. BRUNER CATH PATENT AND DRAINING BLOODY URINE. TELEMETRY SHOWS SR WITH PACS AND RATE OF 89. PT IS BLIND IN LT EYE. LR @ 50 ML/HR INFUSING IN RT FOREARM WITHOUT DIFF. DENIES PAIN. SR ELEVATED X2. CL IN REACH.
--- NOTE | 2018-07-15 22:15 | NUR ---
CONSENTS SIGNED FOR PROCEDURE TOMORROW AND PLACED ON CHART.
[2018-07-16 04:00] VITALS: BP 138/54
[2018-07-16 05:54] LABS: BASOPHILS 0.2 % (0-2); EOSINOPHILS 1.5 % (0-7); HEMATOCRIT 30.9 % (36.0-48.0); HEMOGLOBIN 9.7 g/dL (12-16); IMMATURE GRANULOCYTES 1.3 % (0-5); LYMPHOCYTES 16.2 % (15-50); MCH 26.6 pg (26.0-34.0); MCHC 31.4 g/dL (31.0-37.0); MCV 84.9 fL (80.0-100.0); MEAN PLATELET VOLUME 8.6 fL (7.4-10.4); MONOCYTES 7.2 % (2-11); NEUTROPHILS 73.6 % (40-80); PLATELET COUNT 265 10x3/uL (130-400); RBC 3.64 10x6/uL (4.00-5.40); RDW 16.9 % (11.5-14.5); WBC 8.2 10x3/uL (4.8-10.8)
[2018-07-16 06:10] LABS: ALBUMIN 1.7 g/dL (3.4-5.0); ANION GAP 12.7 mmol/L (8-16); BILIRUBIN - TOTAL 0.42 mg/dL (0.2-1.3); CARBON DIOXIDE 28.9 mmol/L (21.0-32.0); CREATININE - SERUM 1.1 mg/dL (0.6-1.3); MAGNESIUM - SERUM 1.2 mg/dL (1.8-2.4); PHOSPHOROUS 3.1 mg/dL (2.5-4.9); POTASSIUM - SERUM 3.6 mmol/L (3.5-5.1); PROTEIN - SERUM 5.2 g/dL (6.4-8.2)
[2018-07-16 06:17] LABS: CALCIUM 6.6 mg/dL (8.5-10.1)
[2018-07-16 08:58] LABS: APTT 35.2 SECONDS (22.8-39.4); INR 1.19 (0.85-1.17); PROTIME 14.6 SECONDS (11.6-15.0)
[2018-07-16 09:51] VITALS: BP 118/44
--- NOTE | 2018-07-16 13:35 | NUR ---
MONITOR SHOWS UCAFIB WITH RATE OF 130 TO 150. DIG 0.125MG ORDERED AND GIVEN IV. PIE CRIMPING MACHINE OPERATOR NOTIFIED.
[2018-07-16 14:03] VITALS: BP 115/52
[2018-07-16 17:59] VITALS: BP 108/64
--- NOTE | 2018-07-16 19:45 | NUR ---
PT LYING IN BED LOW FOWLERS RESTING, NO SIGNS OF DISTRESS. ALERT AND ORIENTED. DENIES NEEDS OR PAIN. BRUNER NOTED W/ SOME BLOOD. IV RIGHT FA INFUSING LR @ 50. HR 118 UNCONTROLLED AFIB PER TELE. FAMILY AT BEDSIDE. CL IN REACH,WILL CONTINUE TO MONITOR
[2018-07-16 20:00] VITALS: BP 84/54
--- NOTE | 2018-07-16 21:30 | NUR ---
BS 170. REFUSED HUMALOG AND LEVEMIR STATING SHE WILL BE NPO AFTER MIDNIGHT AND DOES NOT WANT TO DROP TOO LOW
[2018-07-17] VITALS (12 sets, daily range): BP systolic 105–128; BP diastolic 48–86
[2018-07-17 05:48] LABS: BASOPHILS 0.2 % (0-2); EOSINOPHILS 0.6 % (0-7); HEMATOCRIT 31.3 % (36.0-48.0); LYMPHOCYTES 11.2 % (15-50); MCHC 31.9 g/dL (31.0-37.0); MCV 84.6 fL (80.0-100.0); MEAN PLATELET VOLUME 8.6 fL (7.4-10.4); PLATELET COUNT 277 10x3/uL (130-400); RDW 16.8 % (11.5-14.5); WBC 9.9 10x3/uL (4.8-10.8)
[2018-07-17 06:21] LABS: ALBUMIN 1.7 g/dL (3.4-5.0); ANION GAP 12.2 mmol/L (8-16); BILIRUBIN - TOTAL 0.43 mg/dL (0.2-1.3); CALCIUM 7.2 mg/dL (8.5-10.1); CARBON DIOXIDE 28.3 mmol/L (21.0-32.0); CREATININE - SERUM 1.1 mg/dL (0.6-1.3); MAGNESIUM - SERUM 1.6 mg/dL (1.8-2.4); POTASSIUM - SERUM 3.5 mmol/L (3.5-5.1); PROTEIN - SERUM 5.1 g/dL (6.4-8.2)
--- NOTE | 2018-07-17 11:54 | EC ---
PATIENT:BASIL ROSALES DATE OF SERVICE: 07/10/18 SEX: F MEDICAL RECORD: [id number] DATE OF : 37 LOCATION:D.[facility] AGE OF PATIENT: 82 ADMISSION DATE: 07/11/18 REFERRING PHYSICIAN: INTERPRETING PHYSICIAN: GABBIE MILAN MD ECHOCARDIOGRAM REPORT ECHO CHARGES 4 ECHO COMPLETE Date: 07/10/18 CLINICAL DIAGNOSIS: LOWER EDEMA, ASSESS EF ECHOCARDIOGRAPHIC MEASUREMENTS (adult normal given) AC root (d.<3.7cm) 3.1 cm LV Septum d (<1.2 cm> 1.6 cm Valve Excursion 1.7 cm LV Septum (systole) 1.8 cm Left Atria (s.<4.0cm> 3.6 cm LVPW d(<1.2cm) 1.6 cm RV (d.<2.3cm) 3.4 cm LVPW (sytole) 1.7 cm LV diastole(<5.6CM) 5.4 cm MV E-F(>70mm/sec) cm LV systole 4.1 cm LVOT Diameter 1.9 cm MV exc.(>10mm) 1.8 cm Est.ejection fraction (50-75%) % DOPPLER: LVIT cm/sec A 100 cm/sec E 81.0 cm/sec LA cm/sec RVSP 22 mmHg LVOT 95 cm/sec AOP1/2T m/s Asc. Ao 166 cm/sec RVOT 79 cm/sec RA cm/sec PA cm/sec AV Gradient Peak 11.07mmHg AV Mean 6.50 mmHg AV Area 1.3 cm MV Gradient Peak 4.37 mmHg MV Mean 1.69 mmHg MV Area cm COMMENTS: Hr Consultant: Curly SCHULTZ Guard Lieutenant: 1 Dr. Milan TAPE# PACS Pericardial Effusion N DATE OF SERVICE: 07/10/2018 PROCEDURE: Echocardiogram. FINDINGS: 1. Left ventricular chamber size is within normal limits. Left ventricular systolic function is normal at 55%. 2. Left atrium, right atrium, and right ventricle chamber sizes are within normal limits. 3. Valvular structures have normal structure and motion. ECHOCARDIOGRAM REPORT [id number] BASIL ROSALES 4. Doppler interrogation reveals mild mitral regurgitation, mild tricuspid regurgitation. No other valvular insufficiency or stenosis. Pulmonary systolic pressure is normal estimated 22 mmHg. 5. No evidence of pericardial effusion or left ventricular thrombus. 6. The patient is in atrial fibrillation during the study. TRANSINT:[id number] Voice Confirmation ID: [id number] DOCUMENT ID: [id number] GABBIE MILAN MD at 1154 CC: [id number] DICTATION DATE: 07/11/18 1130 INFORMATION MANAGEMENT OFFICER: 07/11/18 1158 ADM IN [place] [id number] [place] [address]
--- NOTE | 2018-07-17 19:45 | NUR ---
PT LYING IN BED, NO SIGNS OF DISTRESS. ALERT AND ORIENTED. RIGHT FA IV INFUSING LR @ 50. HR 86 SR PER TELE. LEFT FLANK NEPHROSTOMY TUBE DRAINING BLOODY FLUID. BRUNER NOTED DRAINING BLOODY URINE. BS 132, NO COVERAGE PER SS. DENIES PAIN OR NEEDS AT THIS TIME. CL IN REACH, WILL CONTINUE TO MONITOR
[2018-07-18] VITALS: BP 111/52
[2018-07-18 04:00] VITALS: BP 129/49
[2018-07-18 04:33] LABS: BASOPHILS 0.1 % (0-2); EOSINOPHILS 0.9 % (0-7); HEMATOCRIT 29.9 % (36.0-48.0); HEMOGLOBIN 9.5 g/dL (12-16); IMMATURE GRANULOCYTES 0.9 % (0-5); LYMPHOCYTES 6.6 % (15-50); MCH 26.8 pg (26.0-34.0); MCHC 31.8 g/dL (31.0-37.0); MCV 84.2 fL (80.0-100.0); MEAN PLATELET VOLUME 8.7 fL (7.4-10.4); MONOCYTES 6.3 % (2-11); NEUTROPHILS 85.2 % (40-80); PLATELET COUNT 232 10x3/uL (130-400); RBC 3.55 10x6/uL (4.00-5.40); RDW 16.4 % (11.5-14.5)
[2018-07-18 04:52] LABS: ALBUMIN 1.8 g/dL (3.4-5.0); ANION GAP 14.5 mmol/L (8-16); BILIRUBIN - TOTAL 0.46 mg/dL (0.2-1.3); CALCIUM 7.3 mg/dL (8.5-10.1); CARBON DIOXIDE 27.9 mmol/L (21.0-32.0); CREATININE - SERUM 1.3 mg/dL (0.6-1.3); MAGNESIUM - SERUM 1.2 mg/dL (1.8-2.4); POTASSIUM - SERUM 4.4 mmol/L (3.5-5.1); PROTEIN - SERUM 5.6 g/dL (6.4-8.2); WBC 6.8 10x3/uL (4.8-10.8)
[2018-07-18 08:47] VITALS: BP 126/60
--- NOTE | 2018-07-18 10:04 | NUR ---
ALERT AND ORIENTED SITTING UP ON SOB WITH DAUGHTER PRESENT. TELEMETRY INTACT. DENIES ANY PAIN OR DISCOMFORT. DIMINISHED LLQ POSTERIOR BREATH SOUNDS.BRUNER CATH PATENT WITH BLOOOD TINGED URINE. NOPHROSTOMY BAD TURNED TO OFF POSITION TO MONITOR IF TOLERATING IN ANTICIPATION OF DISCONTINUING SATURDAY. ENCOURAGED TO USE CALL LIGHT FOR ASSIST AND VERBALIZED UNDERSTANDING
[2018-07-18 12:59] VITALS: BP 104/69
--- NOTE | 2018-07-18 15:16 | NUR ---
NUTRITION F/U REGULAR DIET RESUMED, ~50% INTAKE RECENT MEALS. WILL ADD ENSURE TO MEALS. RD FOLLOWING
[2018-07-18 16:00] VITALS: BP 110/66
--- NOTE | 2018-07-18 16:16 | NUR ---
REPORT CALLED TO KATELYN RICHARDSON AT [facility]. DRESSING CHANGED TO RT. KNEE WITH NO S/S OF INFECTION NOTED.
--- NOTE | 2018-07-18 19:15 | NUR ---
RECEIVED REPORT, ASSUMED CARE, SLEEPING, BREATHING EVEN UNLABORED, NO S/S OF DISTRESS NOTED, DAUGHTER AT [facility], CALL LIGHT IN REACH, BRUNER TO GRAVITY, NEPHROSTOMY TUBE C/D/I, WILL CONTINUE POC
[2018-07-18 19:46] VITALS: BP 96/45
--- NOTE | 2018-07-18 22:00 | NUR ---
NEPHROSTOMY TUBE FLUSHED WITH 10CC AND GOT A RETURN OF 60CC
[2018-07-19] VITALS: BP 101/46
--- NOTE | 2018-07-19 02:42 | NUR ---
I have reviewed this patient and I concur with the Shift Assessment completed by the Licensed Practical Nurse today this shift.
[2018-07-19 04:00] VITALS: BP 97/47
[2018-07-19 07:17] LABS: BASOPHILS 0.4 % (0-2); EOSINOPHILS 0.7 % (0-7); HEMOGLOBIN 8.6 g/dL (12-16); IMMATURE GRANULOCYTES 1.1 % (0-5); LYMPHOCYTES 16.1 % (15-50); MCH 26.5 pg (26.0-34.0); MCHC 31.9 g/dL (31.0-37.0); MCV 83.1 fL (80.0-100.0); MEAN PLATELET VOLUME 8.8 fL (7.4-10.4); MONOCYTES 9.2 % (2-11); NEUTROPHILS 72.5 % (40-80); PLATELET COUNT 202 10x3/uL (130-400); RBC 3.25 10x6/uL (4.00-5.40); RDW 16.5 % (11.5-14.5); WBC 5.4 10x3/uL (4.8-10.8)
[2018-07-19 07:32] LABS: ALBUMIN 1.6 g/dL (3.4-5.0); ANION GAP 13.7 mmol/L (8-16); BILIRUBIN - TOTAL 0.17 mg/dL (0.2-1.3); CARBON DIOXIDE 27.4 mmol/L (21.0-32.0); CREATININE - SERUM 1.1 mg/dL (0.6-1.3); POTASSIUM - SERUM 4.1 mmol/L (3.5-5.1); PROTEIN - SERUM 5.1 g/dL (6.4-8.2)
[2018-07-19 07:33] LABS: CALCIUM 6.9 mg/dL (8.5-10.1)
[2018-07-19 09:37] VITALS: BP 103/50
--- NOTE | 2018-07-19 10:17 | NUR ---
ALERT AND ORIENTED WITH FAMILY PRESENT. PT. SITTING ON SOB LUNGS CTA. TELEMETRY INTACT. BRUNER CATH PATENT WITH BLOOD TINGED URINE. NEPROSTOMY CATH INTACT. DENIES ANY PAIN OR DISCOMFORT AT THIS TIME. ENCOURAGED TO USE CALL LIGHT FOR ASSSIT.
[2018-07-19 13:29] VITALS: BP 101/45
[2018-07-19 16:21] VITALS: BP 103/44
[2018-07-19 16:55] LABS: APPEARANCE HAZY (CLEAR); BILIRUBIN NEGATIVE (NEGATIVE); COLOR TAN (YELLOW); GLUCOSE NEGATIVE (NEGATIVE); KETONE NEGATIVE (NEGATIVE); NITRITE NEGATIVE (NEGATIVE); PH 5.5 (5.0-6.0); PROTEIN 2+ mg/dL (NEGATIVE); UROBILINOGEN NORMAL (NORMAL)
[2018-07-19 17:03] LABS: BACTERIA MODERATE /hpf (NONE SEEN); EPITHELIAL CELLS OCC /hpf (0-5); MUCUS <1+ /lpf (NONE SEEN); RED CELLS - URINE >50 /hpf (0-5); WHITE CELLS - URINE 0-5 /hpf (0-5)
[2018-07-19 20:00] VITALS: BP 90/41
[2018-07-20] VITALS: BP 86/44
[2018-07-20 04:00] VITALS: BP 98/40
[2018-07-20 05:14] LABS: BASOPHILS 0.2 % (0-2); EOSINOPHILS 2.4 % (0-7); HEMATOCRIT 30.2 % (36.0-48.0); HEMOGLOBIN 9.5 g/dL (12-16); IMMATURE GRANULOCYTES 1.6 % (0-5); LYMPHOCYTES 20.7 % (15-50); MCH 26.2 pg (26.0-34.0); MCHC 31.5 g/dL (31.0-37.0); MCV 83.4 fL (80.0-100.0); MEAN PLATELET VOLUME 8.8 fL (7.4-10.4); MONOCYTES 10.2 % (2-11); NEUTROPHILS 64.9 % (40-80); PLATELET COUNT 212 10x3/uL (130-400); RBC 3.62 10x6/uL (4.00-5.40); RDW 16.4 % (11.5-14.5); WBC 6.2 10x3/uL (4.8-10.8)
[2018-07-20 05:34] LABS: ALBUMIN 1.7 g/dL (3.4-5.0); ANION GAP 13.8 mmol/L (8-16); BILIRUBIN - TOTAL 0.23 mg/dL (0.2-1.3); CALCIUM 7.1 mg/dL (8.5-10.1); CARBON DIOXIDE 27.9 mmol/L (21.0-32.0); CREATININE - SERUM 1.1 mg/dL (0.6-1.3); POTASSIUM - SERUM 3.7 mmol/L (3.5-5.1); PROTEIN - SERUM 5.5 g/dL (6.4-8.2)
[2018-07-20 08:30] VITALS: BP 111/49
--- NOTE | 2018-07-20 10:27 | NUR ---
ALERT AND ORIENTED LUNGS CTA. TELEMETRY INTACT WITHSR 86. DENIES ANY PAIN OR DISCOMFORT AND ENCOURAGEED TO USE CALL LIGHT FOR ASSIST.
[2018-07-20 12:43] VITALS: BP 104/42
--- NOTE | 2018-07-20 19:53 | NUR ---
RECEIVED REPORT, ASSUMED CARE, A&O, DAUGHTER AT BEDSIDE, DENIES NEEDS, CALL LIGHT IN REACH, BED LOWEST POSITION, REQUESTED SOME IMMODIUM FOR LOOSE BM, DR KAYE PURCELL, IV TO RFA PATENT, WILL CONTINUE POC
[2018-07-20 20:00] VITALS: BP 107/41
[2018-07-21] VITALS: BP 93/44
--- NOTE | 2018-07-21 01:44 | NUR ---
I have reviewed this patient and I concur with the Shift Assessment completed by the Licensed Practical Nurse today this shift.
[2018-07-21 04:50] LABS: BASOPHILS 0.2 % (0-2); EOSINOPHILS 2.3 % (0-7); HEMATOCRIT 29.1 % (36.0-48.0); HEMOGLOBIN 9.2 g/dL (12-16); IMMATURE GRANULOCYTES 1.5 % (0-5); LYMPHOCYTES 25.9 % (15-50); MCH 26.4 pg (26.0-34.0); MCHC 31.6 g/dL (31.0-37.0); MCV 83.6 fL (80.0-100.0); MEAN PLATELET VOLUME 8.8 fL (7.4-10.4); MONOCYTES 10.2 % (2-11); NEUTROPHILS 59.9 % (40-80); RBC 3.48 10x6/uL (4.00-5.40); RDW 16.5 % (11.5-14.5); WBC 6.5 10x3/uL (4.8-10.8)
[2018-07-21 04:55] LABS: PLATELET COUNT 293 10x3/uL (130-400)
[2018-07-21 05:13] LABS: ALBUMIN 1.7 g/dL (3.4-5.0); ANION GAP 11.4 mmol/L (8-16); BILIRUBIN - TOTAL 0.12 mg/dL (0.2-1.3); CALCIUM 7.1 mg/dL (8.5-10.1); CARBON DIOXIDE 31.1 mmol/L (21.0-32.0); CREATININE - SERUM 0.9 mg/dL (0.6-1.3); POTASSIUM - SERUM 3.5 mmol/L (3.5-5.1); PROTEIN - SERUM 5.4 g/dL (6.4-8.2)
[2018-07-21 08:17] LABS: APTT 34.1 SECONDS (22.8-39.4); INR 1.04 (0.85-1.17); PROTIME 13.1 SECONDS (11.6-15.0)
[2018-07-21 08:30] VITALS: BP 122/43
--- NOTE | 2018-07-21 12:55 | NUR ---
I have reviewed this patient and I concur with the Shift Assessment completed by the Licensed Practical Nurse today this shift.
[2018-07-21 13:52] VITALS: BP 108/38
[2018-07-21 17:17] VITALS: BP 98/43
--- NOTE | 2018-07-21 18:52 | NUR ---
PT IV INFILTRATED AFTER REMOVAL OF NEPHROSTOMY TUBE TODAY, WENT T ORESITE PT AND PT IS ONLY GETTING LR AT 50, NO ABX OR PAIN MEDICATION THROUGH IV, ADVISED PT I AM NOT STICKING HER UNLESS ABSOLUTELY NECESSARY
[2018-07-21 20:00] VITALS: BP 118/65
--- NOTE | 2018-07-21 20:00 | NUR ---
ALERT AND ORIENTIATED RESTIGN IN BED FAMILY AT BEDSIDE, BRUNER CATH DRAINING YELLOW URINE, NO APPARENT DISTRESS CALL LIGHT IN REACH
[2018-07-22 04:00] VITALS: BP 115/42
[2018-07-22 06:05] LABS: BASOPHILS 0.3 % (0-2); EOSINOPHILS 1.6 % (0-7); HEMATOCRIT 29.2 % (36.0-48.0); HEMOGLOBIN 9.3 g/dL (12-16); IMMATURE GRANULOCYTES 1.4 % (0-5); LYMPHOCYTES 22.6 % (15-50); MCH 26.6 pg (26.0-34.0); MCHC 31.8 g/dL (31.0-37.0); MCV 83.7 fL (80.0-100.0); MEAN PLATELET VOLUME 8.5 fL (7.4-10.4); MONOCYTES 9.1 % (2-11); PLATELET COUNT 278 10x3/uL (130-400); RBC 3.49 10x6/uL (4.00-5.40); RDW 16.4 % (11.5-14.5); WBC 7.1 10x3/uL (4.8-10.8)
[2018-07-22 06:32] LABS: ALBUMIN 1.9 g/dL (3.4-5.0); BILIRUBIN - TOTAL 0.17 mg/dL (0.2-1.3); CALCIUM 7.2 mg/dL (8.5-10.1); CARBON DIOXIDE 29.3 mmol/L (21.0-32.0); POTASSIUM - SERUM 3.3 mmol/L (3.5-5.1); PROTEIN - SERUM 5.6 g/dL (6.4-8.2)
[2018-07-22 09:06] VITALS: BP 99/48
[2018-07-22 15:12] VITALS: BP 114/58
[2018-07-22 17:36] VITALS: BP 91/34
[2018-07-22 20:00] VITALS: BP 115/37
--- NOTE | 2018-07-22 20:00 | NUR ---
ALERT RESTING IN BED SEE SHIFT ASSESSMENT, FAMILY AT BEDSIDE, DENIES NEEDS AT THIS TIME, CALL LIGHT IN REACH
--- NOTE | 2018-07-22 20:36 | NUR ---
I HAVE REVIEWED THIS PT AND I CONCURED WITH PT SHIFT ASSESSMENT BY THE CASING OPERATOR
[2018-07-23 04:00] VITALS: BP 111/64
[2018-07-23 06:23] LABS: BASOPHILS 0.3 % (0-2); EOSINOPHILS 1.8 % (0-7); HEMATOCRIT 30.2 % (36.0-48.0); HEMOGLOBIN 9.7 g/dL (12-16); IMMATURE GRANULOCYTES 2.5 % (0-5); LYMPHOCYTES 21.9 % (15-50); MCH 26.8 pg (26.0-34.0); MCHC 32.1 g/dL (31.0-37.0); MCV 83.4 fL (80.0-100.0); MEAN PLATELET VOLUME 8.8 fL (7.4-10.4); MONOCYTES 8.3 % (2-11); NEUTROPHILS 65.2 % (40-80); RBC 3.62 10x6/uL (4.00-5.40); RDW 16.6 % (11.5-14.5); WBC 7.9 10x3/uL (4.8-10.8)
[2018-07-23 06:24] LABS: ANION GAP 11.7 mmol/L (8-16); BILIRUBIN - TOTAL 0.31 mg/dL (0.2-1.3); CALCIUM 7.5 mg/dL (8.5-10.1); CARBON DIOXIDE 29.5 mmol/L (21.0-32.0); POTASSIUM - SERUM 3.2 mmol/L (3.5-5.1); PROTEIN - SERUM 6.2 g/dL (6.4-8.2)
[2018-07-23 06:32] LABS: PLATELET COUNT 379 10x3/uL (130-400)
[2018-07-23 09:07] VITALS: BP 103/46
--- NOTE | 2018-07-23 10:50 | NUR ---
PT YURI ORTEGA BED ON LEFT SIDE ASLEEP, NO S/S OF DISTRESS, EVEN RISE AND FALL OF CHEST NO LABORED BREATHING SEEN, FAMILY AT BEDSIDE, CONTINUE WITH PLAN OF CARE
[2018-07-23 13:29] VITALS: BP 109/46
--- NOTE | 2018-07-23 13:54 | NUR ---
NUTRITION F/U PT UP IN CHAIR, FAMILY IN ROOM. PT REPORTS SHE HAD LUNCH AND "ATE PRETTY GOOD." NOTE PT FOR PORT PLACEMENT. WILL PROVIDE DIET WHEN RESUMED, HONOR FOOD PREFERENCES. RD FOLLOWING
--- NOTE | 2018-07-23 18:20 | NUR ---
I have reviewed this patient and I concur with the Shift Assessment completed by the Licensed Practical Nurse today this shift.
--- NOTE | 2018-07-23 20:00 | NUR ---
ASSESSMENT PER FLOWSHEET. BRUNER TO BEDSIDE DRAINGAGE. TELM. SHOWING SR W/PAC'S HR 70'S. FAMILY MEMBER AT BEDSIDE.
--- NOTE | 2018-07-23 21:30 | NUR ---
MEDS GIVEN IN APPLESAUCE. SQQX=[id number]. PT REFUSES S/S INSULIN UNLESS RESULTS GREATER THAN 200.
[2018-07-23 22:16] VITALS: BP 92/43
--- NOTE | 2018-07-24 | NUR ---
NPO FOR SURGERY PROCEDURE IN AM.
--- NOTE | 2018-07-24 03:32 | NUR ---
EYES CLOSED RESPIRATIONS WITH EASE AND UNLABORED.
[2018-07-24 04:37] VITALS: BP 99/49
[2018-07-24 05:06] LABS: BILIRUBIN - TOTAL 0.22 mg/dL (0.2-1.3); CALCIUM 7.6 mg/dL (8.5-10.1); CREATININE - SERUM 0.9 mg/dL (0.6-1.3); PROTEIN - SERUM 6.2 g/dL (6.4-8.2)
[2018-07-24 05:09] LABS: BASOPHILS 0.5 % (0-2); EOSINOPHILS 2.3 % (0-7); HEMATOCRIT 29.6 % (36.0-48.0); HEMOGLOBIN 9.6 g/dL (12-16); IMMATURE GRANULOCYTES 2.4 % (0-5); LYMPHOCYTES 21.6 % (15-50); MCH 27.3 pg (26.0-34.0); MCHC 32.4 g/dL (31.0-37.0); MCV 84.1 fL (80.0-100.0); MEAN PLATELET VOLUME 8.6 fL (7.4-10.4); MONOCYTES 7.3 % (2-11); NEUTROPHILS 65.9 % (40-80); PLATELET COUNT 418 10x3/uL (130-400); RBC 3.52 10x6/uL (4.00-5.40); RDW 16.9 % (11.5-14.5); WBC 8.6 10x3/uL (4.8-10.8)
--- NOTE | 2018-07-24 08:30 | NUR ---
PT RESTING WITH EYES CLOSED IN BED. FAMILY AT BEDSIDE. EASILY AWAKENS WITH NAME CALLED. NO ACUTE DISTRESS NOTED. DENIES PAIN AT THIS TIME. F/C PATENT TO GRAVITY. DENIES FURTHER NEEDS AT THIS TIME. CL WITHIN REACH. ENCOURAGED PT AND FAMILY TO CALL WITH NEEDS. CONTINUE POC
[2018-07-24 09:25] VITALS: BP 110/55
--- NOTE | 2018-07-24 11:37 | MORECARE ---
CASE MANAGEMENT DISCHARGE SUMMARY PATIENT: BASIL ROSALES UNIT: [id number] ADM DATE: 07/11/18 AGE: 82 : 36 SEX: F ROOM/BED: D.2226 AUTHOR: ZENOBIA LESLIE PHYSICIAN: REFERRING PHYSICIAN: FELICIA NUNEZ MD DATE OF SERVICE: 07/24/18 Discharge Plan Patient Name: BASIL ROSALES Facility: [facility]:[place] : 1935 Planned Disposition: Home Anticipated Discharge Date: Discharge Date: Expected LOS: Initial Reviewer: [email or web address] Initial Review Date: 07/10/2018 Generated: 07/24/18 12:37 pm Comments DCP- Discharge Planning Updated by [email or web address]: Suerodolfo Garcia on 07/24/18 10:[address] CM met with patient and daughter in the room. Patient is asleep and not awakened at this time. She lives with her daughter, Trey. Trey states the discharge plan is to return home with her. States they have all the DME they need. I discussed the availability of home health again and she refuses. States "I can take care of my mother." I informed her that if she got home and changed her mind and felt she needed home health services to call her primary care physician, voiced understanding. CM will continue to follow and assist with discharge planning/needs. DCP- Discharge Planning Updated by [id number]: Franny Mckeon on 07/14/18 12:[address] Patient Name: BASIL ROSALES Admission Status: Urgent Accout number: [id number] Admission Date: 07-11-2018 : 1935 Admission Diagnosis: Attending: FELICIA NUNEZ Current LOS: 3 Anticipated DC Date: Planned Disposition: Home Primary Insurance: MEDICARE A & B Discharge Planning Comments: CM met with patient to complete initial dc planning assessment. CM educated patient on the CM role and verbal consent given by patient to complete assessment. Patient lives at home with her daughter Trey. At discharge patient plans to return and feels this is a safe discharge. CM discussed availability of home health, rehab services, and medical equipment. Patient has a BSC, walker, hospital bed, wheelchair, shower chair, handicap bathroom elevated toilet seat at home. Her daughter Trey will be her jukebox route driver home at DC. They are waiting on test results to see how to proceed with treatment options. CM will continue to follow and will assist as needed with dc plans/needs. Fish Technologist: Franny Mckeon DCP- Discharge Planning Updated by [email or web address]: Fabiana Russ on 07/12/18 4:[address] CM CONSULT FOR DISCHARGE PLANNING RECEIVED. REVIEWED MD NOTES. APPEARS WORKUP AND STAGING IN PROGRESS FOR METASTATIC DISEASE. PATIENT DOES HAVE FAMILY THAT VISITS. CM PLANS TO MEET WITH THE PATIENT FOR ASSESSMENT AND SPEAK WITH FAMILY IF SHE GIVES PERMISSION. DCPIA - Discharge Planning Initial Assessment Updated by [email or web address]: Franny Mckeon on 07/14/18 2:56 pm * Is the patient Alert and Oriented? Yes * How many steps to enter\\exit or inside your home? * PCP NUNEZ * Pharmacy [facility] * Preadmission Environment Home with Family * ADLs Partial Dependent * Partial ADLs (Assistance needed) Bathing Medication Management Toileting * Equipment Bedside Commode Elevated [place] Seat Hospital Bed Rolling Walker Shower Chair Walker Wheelchair * List name and contact numbers for known caregivers / representatives who currently or will assist patient after discharge: TREY (DAUGHTER) [phone] * Verbal permission to speak to the caregivers and representatives has been obtained from the patient. Yes * Community resources currently utilized None * Additional services required to return to the preadmission environment? Yes * Can the patient safely return to the preadmission environment? Yes * Has this patient been hospitalized within the prior 30 days at any hospital? No Coverage Notice Reviewer: [id number] Anne Marie Garcia Notice Issued Date-Time: 07/24/2018 11:31 Notice Type: IM Discharge Notice Notice Delivered To: Family Member Relationship to Patient: Daughter Marine Pipefitter Helper Name: Trey Delivery Method: HAND - Hand Delivered Sameera Days: Prior Verbal Notification: Recipient Understood Notice: Yes Recipient Signature: Yes Med Rec Note Co-signed by Attending: Coverage Notice Comment: IMM delivered, signed, given, copy placed in MR Last DP export: 07/14/18 1:05 pm Patient Name: BASIL ROSALES Page [phone] at 1137 All edits/amendments must be made on the electronic document DICTATION DATE: 07/24/181136 EARLY EDUCATION TEACHER: BRIAN 07/24/181136 RPT#: [id number] DC DATE: STATUS: ADM IN [facility] [address] [place] [address] END OF REPORT
[2018-07-24 13:13] VITALS: BP 114/51
[2018-07-24 16:28] VITALS: BP 107/75
[2018-07-24 20:00] VITALS: BP 91/51
--- NOTE | 2018-07-24 21:18 | NUR ---
PT ALERT & ORIENTED. GAVE SCHEDULED MEDS. COMPLETE ASSESSMENT PER FLOW-SHEET. PT NPO AFTER MIDNIGHT FOR PORT PLACEMENT IN MORNING. WILL CONTINUE TO MONITOR.
[2018-07-25] VITALS: BP 104/50
[2018-07-25 04:35] LABS: BASOPHILS 0.2 % (0-2); EOSINOPHILS 1.9 % (0-7); HEMATOCRIT 30.4 % (36.0-48.0); HEMOGLOBIN 9.7 g/dL (12-16); IMMATURE GRANULOCYTES 2.5 % (0-5); LYMPHOCYTES 15.5 % (15-50); MCHC 31.9 g/dL (31.0-37.0); MCV 84.7 fL (80.0-100.0); MEAN PLATELET VOLUME 8.6 fL (7.4-10.4); MONOCYTES 7.7 % (2-11); NEUTROPHILS 72.2 % (40-80); PLATELET COUNT 411 10x3/uL (130-400); RBC 3.59 10x6/uL (4.00-5.40); RDW 16.9 % (11.5-14.5); WBC 8.3 10x3/uL (4.8-10.8)
[2018-07-25 05:07] LABS: ANION GAP 10.5 mmol/L (8-16); BILIRUBIN - TOTAL 0.27 mg/dL (0.2-1.3); CALCIUM 7.4 mg/dL (8.5-10.1); CARBON DIOXIDE 29.9 mmol/L (21.0-32.0); CREATININE - SERUM 0.9 mg/dL (0.6-1.3); POTASSIUM - SERUM 3.4 mmol/L (3.5-5.1); PROTEIN - SERUM 6.1 g/dL (6.4-8.2)
[2018-07-25 05:20] VITALS: BP 107/58
--- NOTE | 2018-07-25 07:50 | NUR ---
PT RESTING IN BED WITH EYES CLOSED. FAMILY AT BEDSIDE. RESP EVEN AND UNLABORED. OPENS EYES SPONTANEOUSLY STAFF ENTERS ROOM. PT REPORTS NPO SINCE MIDNIGHT. IV TO LEFT FOREARM WITH LR @ 50ML/HR INFUSING VIA PUMP. SITE WITHOUT REDNESS/EDEMA. F/C PATENT TO GRAVITY. DENIES PAIN. DENIES FURTHER NEEDS. CL WITHIN REACH. ENCOURAGED TO CALL WITH NEEDS. CONTINUE POC
--- NOTE | 2018-07-25 08:30 | NUR ---
PT TAKEN TO SURGERY FOR PORT PLACEMENT VIA BED. NO ACUTE DISTRESS NOTED.
[2018-07-25 09:35] VITALS: BP 115/83
--- NOTE | 2018-07-25 09:45 | NUR ---
0910: PERINEUM NOTED TO HAVE LARGE AMOUNT OF MILKY MUCOUS DISCHARGE AND CRUSTY BROWN PATCHES NOTED ON ABDOMENT AND PUBIS. THIS AREA WAS CLEANED POST OPERATIVELY. REPORTED TO RECOVERY ROOM TO ALERT FLOOR NURSES.
[2018-07-25 10:27] VITALS: BP 126/52
--- NOTE | 2018-07-25 11:12 | OP ---
PATIENT NAME: BASIL ROSALES MEDICAL RECORD: [id number] :37 LOCATION:D.MS [facility] ADMISSION DATE:07/11/18 SURGEON: CINTHYA KHAN MD DATE OF OPERATION: 07/25/2018 PREOPERATIVE DIAGNOSES: 1. Metastatic adenocarcinoma of unknown origin. 2. Hypothyroidism. 3. Chronic obstructive pulmonary disease. 4. Hypertension. 5. Diabetes mellitus. POSTOPERATIVE DIAGNOSES: 1. Metastatic adenocarcinoma of unknown origin. 2. Hypothyroidism. 3. Chronic obstructive pulmonary disease. 4. Hypertension. 5. Diabetes mellitus. PROCEDURES: 1. Left subclavian vein port placement. 2. Fluoroscopic interpretation. SURGEON: Cinthya Khan MD REPORT OF PROCEDURE: The patient's left chest was prepped and draped in sterile fashion. A needle was used to cannulate the left subclavian vein and a guidewire was advanced with ease. Fluoro was used to note that the wire was in good position in the venous system. A skin incision was made on the left superior lateral chest and a subcutaneous pouch was made over the pectoral fascia. The catheter was tunneled between this pouch and the wire exit site. The port was sutured to the pectoral fascia using interrupted 3-0 Prolenes. The catheter was cut with a beveled tip at 20 cm. The dilator trocar device was then placed over the wire and the wire and dilator were removed. The catheter tip was advanced through the trocar and the trocar was removed. Fluoro was used to note that the catheter tip rested in good position at the right atrial superior vena caval junction. The catheter aspirated nonpulsatile dark blood and flushed easily with heparinized saline. We reapproximated the subcutaneous tissues with interrupted 3-0 Vicryl and the skin was closed with running subcutaneous 5-0 Monocryl. The port was accessed and flushed one last time before dressing was applied. COMPLICATIONS: None. CONDITION: Stable. ANESTHESIA: General endotracheal. BLOOD LOSS: Minimal. TRANSINT:[id number] Voice Confirmation ID: [id number] DOCUMENT ID: [id number] OPERATIVE REPORT [id number] BASIL ROSALES Justin CINTHYA KHAN MD at 1112 CC: [id number] DICTATION DATE: 07/25/18 0972 PIPE CHANGER: 07/25/18 1005 ADM IN [facility] [address] [place] [id number]
[2018-07-25] MEDS ORDERED: TOPROL XL50 MG PO (11:28)
[2018-07-25] MEDS ORDERED: TUMS PO (11:29)
[2018-07-25] MEDS ORDERED: CARAFATE1 G PO (11:37)
[2018-07-25] MEDS ORDERED: PROTONIX40 MG PO (11:37)
[2018-07-25] MEDS ORDERED: COLACE100 MG PO (11:38)
--- NOTE | 2018-07-25 14:06 | MORECARE ---
CASE MANAGEMENT DISCHARGE SUMMARY PATIENT: BASIL ROSALES UNIT: [id number] ADM DATE: 07/11/18 AGE: 82 : 36 SEX: F ROOM/BED: D.2226 AUTHOR: ZENOBIA LESLIE PHYSICIAN: REFERRING PHYSICIAN: FELICIA NUNEZ MD DATE OF SERVICE: 07/25/18 Discharge Plan Patient Name: BASIL ROSALES Facility: [facility]:[place] : 1935 Planned Disposition: Home Anticipated Discharge Date: Discharge Date: Expected LOS: Initial Reviewer: [email or web address] Initial Review Date: 07/10/2018 Generated: 07/25/18 3:06 pm Comments DCP- Discharge Planning Updated by [email or web address]: Sue Garcia on 07/25/18 1:[address] Patient Name: BASIL ROSALES Encounter No: [id number] : 1935 Primary Insurance: MEDICARE A & B Anticipated DC Date: Planned Disposition: Home External Planned Provider: : DCP follow-up note: Patient and family in agreement with discharge plan. No changes to plan. Declines home health. Case management will follow and assist as needed. Sue Jose DCP- Discharge Planning Updated by [id number]: Sue Jose on 07/24/18 10:[address] CM met with patient and daughter in the room. Patient is asleep and not awakened at this time. She lives with her daughter, Trey. Trey states the discharge plan is to return home with her. States they have all the DME they need. I discussed the availability of home health again and she refuses. States "I can take care of my mother." I informed her that if she got home and changed her mind and felt she needed home health services to call her primary care physician, voiced understanding. CM will continue to follow and assist with discharge planning/needs. DCP- Discharge Planning Updated by [id number]: Franny Mckeon on 07/14/18 12:[address] Patient Name: BASIL ROSALES Admission Status: Urgent Accout number: [id number] Admission Date: 07-11-2018 : 1935 Admission Diagnosis: Attending: FELICIA NUNEZ Current LOS: 3 Anticipated DC Date: Planned Disposition: Home Primary Insurance: MEDICARE A & B Discharge Planning Comments: CM met with patient to complete initial dc planning assessment. CM educated patient on the CM role and verbal consent given by patient to complete assessment. Patient lives at home with her daughter Trey. At discharge patient plans to return and feels this is a safe discharge. CM discussed availability of home health, rehab services, and medical equipment. Patient has a BSC, walker, hospital bed, wheelchair, shower chair, handicap bathroom elevated toilet seat at home. Her daughter Trey will be her electric train driver home at DC. They are waiting on test results to see how to proceed with treatment options. CM will continue to follow and will assist as needed with dc plans/needs. Invoice Machine Operator: Franny Mckeon DCP- Discharge Planning Updated by [email or web address]: Fabiana Russ on 07/12/18 4:[address] CM CONSULT FOR DISCHARGE PLANNING RECEIVED. REVIEWED MD NOTES. APPEARS WORKUP AND STAGING IN PROGRESS FOR METASTATIC DISEASE. PATIENT DOES HAVE FAMILY THAT VISITS. CM PLANS TO MEET WITH THE PATIENT FOR ASSESSMENT AND SPEAK WITH FAMILY IF SHE GIVES PERMISSION. DCPIA - Discharge Planning Initial Assessment Updated by [email or web address]: Franny Mckeon on 07/14/18 2:56 pm * Is the patient Alert and Oriented? Yes * How many steps to enter\\exit or inside your home? * PCP ENRIQUE * Pharmacy [facility] * Preadmission Environment Home with Family * ADLs Partial Dependent * Partial ADLs (Assistance needed) Bathing Medication Management Toileting * Equipment Bedside Commode Elevated [place] Seat Hospital Bed Rolling Walker Shower Chair Walker Wheelchair * List name and contact numbers for known caregivers / representatives who currently or will assist patient after discharge: TREY (DAUGHTER) [phone] * Verbal permission to speak to the caregivers and representatives has been obtained from the patient. Yes * Community resources currently utilized None * Additional services required to return to the preadmission environment? Yes * Can the patient safely return to the preadmission environment? Yes * Has this patient been hospitalized within the prior 30 days at any hospital? No Coverage Notice Reviewer: [email or web address] Anne Marie Garcia Notice Issued Date-Time: 07/24/2018 11:31 Notice Type: IM Discharge Notice Notice Delivered To: Family Member Relationship to Patient: Daughter Crawler Dragline Operator Name: Trey Delivery Method: HAND - Hand Delivered Sameera Days: Prior Verbal Notification: Recipient Understood Notice: Yes Recipient Signature: Yes Med Rec Note Co-signed by Attending: Coverage Notice Comment: IMM delivered, signed, given, copy placed in MR Last DP export: 07/24/18 10:37 a Patient Name: BASIL ROSALES Page [id number] at 1406 All edits/amendments must be made on the electronic document DICTATION DATE: 07/25/18 1406 ROUSTABOUT HAND: BRIAN 07/25/18 1406 RPT#: [id number] DC DATE: STATUS: ADM IN [facility] [address] [place] [address] END OF REPORT
[2018-07-25] MEDS ORDERED: FLAGYL500 MG PO (14:08)
[2018-07-25] MEDS ORDERED: AMOXICILLIN500 M1 PO (14:08)
[2018-07-25] MEDS ORDERED: CLARITHROMYCIN500 M1 PO (14:08)
== END 2018-07-25 18:16 | disposition home or self-care (01) | DRG 981 ==
LOC: D.MS 13:41 → OBSVTIME 13:43 → D.MS 07-11 10:42
PROVIDERS: Emergency Medicine; General Practice; Internal Medicine Gastroenterology; Internal Medicine Hematology & Oncology; Internal Medicine Nephrology; Specialist; Urology; ADMIT Family Medicine; ATTEND Family Medicine
PROC: 0DBF8ZZ Excision of Right Large Intestine, Via Natural or Artificial Opening Endoscopic (ICD-10-PCS; 2018-07-13)
PROC: 0DB98ZX Excision of Duodenum, Via Natural or Artificial Opening Endoscopic, Diagnostic (ICD-10-PCS; principal; 2018-07-13 10:37)
PROC: 0T768DZ Dilation of Right Ureter with Intraluminal Device, Via Natural or Artificial Opening Endoscopic (ICD-10-PCS; 2018-07-15)
PROC: 0TBB8ZX Excision of Bladder, Via Natural or Artificial Opening Endoscopic, Diagnostic (ICD-10-PCS; 2018-07-15 12:00)
PROC: 0JH60WZ Insertion of Totally Implantable Vascular Access Device into Chest Subcutaneous Tissue and Fascia, Open Approach (ICD-10-PCS; 2018-07-25)
PROC: 05H633Z Insertion of Infusion Device into Left Subclavian Vein, Percutaneous Approach (ICD-10-PCS; 2018-07-25)
DX: D49.0 Neoplasm of unspecified behavior of digestive system (principal); J18.9 Pneumonia, unspecified organism; C79.51 Secondary malignant neoplasm of bone; J44.1 Chronic obstructive pulmonary disease with (acute) exacerbation; E86.0 Dehydration; E87.6 Hypokalemia; E11.9 Type 2 diabetes mellitus without complications; R19.7 Diarrhea, unspecified; B37.2 Candidiasis of skin and nail; K25.9 Gastric ulcer, unspecified as acute or chronic, without hemorrhage or perforation; K44.9 Diaphragmatic hernia without obstruction or gangrene; K63.5 Polyp of colon; C21.8 Malignant neoplasm of overlapping sites of rectum, anus and anal canal

== ENCOUNTER 2018-09-02 12:02 | Inpatient (IN) | payer MEDICARE ==
[~2018-09-02] VITALS: Ht 170.2 cm; Wt 71.5 kg
[2018-09-02] VITALS (21 sets, daily range): BP systolic 84–159; BP diastolic 42–93; BMI 24.7
[~2018-09-02 12:02] MED LIST changes: +AMOXICILLIN500 M1 PO; +CARAFATE1 G PO; +CLARITHROMYCIN500 M1 PO; +COLACE100 MG PO; +TUMS PO
[2018-09-02 12:38] LABS: HEMATOCRIT 32.4 % (36.0-48.0); HEMOGLOBIN 10.3 g/dL (12-16); MCH 26.8 pg (26.0-34.0); MCHC 31.8 g/dL (31.0-37.0); MCV 84.4 fL (80.0-100.0); MEAN PLATELET VOLUME 9.9 fL (7.4-10.4); RBC 3.84 10x6/uL (4.00-5.40); RDW 16.5 % (11.5-14.5); WBC 9.8 10x3/uL (4.8-10.8)
[2018-09-02 13:04] LABS: APTT 25.8 SECONDS (22.8-39.4); INR 1.25 (0.85-1.17); PROTIME 15.1 SECONDS (11.6-15.0)
[2018-09-02 13:33] LABS: PLATELET COUNT 272 10x3/uL (130-400)
[2018-09-02 13:36] LABS: ALKALINE PHOSPHATASE 306 U/L (46-116); ALT (SGPT) 11 U/L (10-68); BILIRUBIN - TOTAL 0.43 mg/dL (0.2-1.3); CALCIUM 7.2 mg/dL (8.5-10.1); CHLORIDE - SERUM 91 mmol/L (98-107); CKMB 1.3 U/L (0.0-3.6); CREATINE KINASE 46 UL (21-215); CREATININE - SERUM 1.2 mg/dL (0.6-1.3); POTASSIUM - SERUM 5.4 mmol/L (3.5-5.1); PRO BNP 16199 pg/mL (0-450); SODIUM 127 mmol/L (136-145); TROPONIN-I 0.028 ng/mL (0.000-0.060); UREA NITROGEN 27 mg/dL (7-18); eGFR NON AFRICAN AMERICAN 45 mL/min (90-120)
[2018-09-02 13:45] LABS: CALC OSMOLALITY 289 mosm/kg (275-300); GLUCOSE 632 mg/dL (74-106)
[2018-09-02 13:47] LABS: D-DIMER-QUANTITATIVE 5.49 ug/mLFEU (0.20-0.54)
[2018-09-02 14:53] LABS: LYMPHOCYTES 16 % (15-50); NEUTROPHILS 84 % (40-80); PLATELET ESTIMATE NORMAL
--- NOTE | 2018-09-02 17:55 | NUR ---
FSBS = 548MG/DL. NOTIFIED DR. RIOS OF THIS FINDING. HE ADVISED TO FOLLOW SLIDING SCALE. PT TO BE ADMINISTERED 20U HUMULIN R PER SLIDING SCALE.
--- NOTE | 2018-09-02 18:25 | NUR ---
ATTEMPTED TO TRANSPORT PATIENT TO ICU, PT'S BECAME DIAPHORETIC AND B/P DROPPED TO 74/40. NOTIFIED DR. MONTOYA IMMEDIATELY. HE ASSESSED PT AT BEDSIDE, ADVISED FOR FLUID BOLUS TO BE STARTED.
--- NOTE | 2018-09-02 18:49 | NUR ---
400ML BOLUS COMPLETED. PT'S B/P 96/50. DR. MONTOYA AGREED FOR PATIENT TO BE TRANSPORTED TO THE ICU FOR FURTHER CARE.
--- NOTE | 2018-09-02 19:00 | NUR ---
PT ASSISTED INTO ICU BED FROM ER. PT HOOKED UP TO MONITORS, MONITORS ON AND WORKING. SEE FLOW SHEET FOR FURTHER DETAILS. WILL CONTINUE TO OBSERVE.
--- NOTE | 2018-09-02 19:32 | NUR ---
SPOKE WITH DR WILLIAM, ORDERS RECIEVED.
--- NOTE | 2018-09-02 19:36 | NUR ---
DR AGUILAR PAGED AT THIS TIME.
--- NOTE | 2018-09-02 19:42 | NUR ---
DR AGUILAR NOTIFIED OF CONSULT, NO ORDERS RECIEVED.
--- NOTE | 2018-09-02 19:50 | NUR ---
DR. RIOS NOTIFIED OF RECENT LAB RESULTS, NEW ORDER FOR DKA PROTOCOL REC'D.
--- NOTE | 2018-09-02 20:12 | NUR ---
LEVOPHED GTT INITIATED PER MD ORDERS - SEE FLOWSHEET. ALARMS ON.
[2018-09-02 20:15] LABS: ANION GAP 19.4 mmol/L (8-16); CARBON DIOXIDE 18.6 mmol/L (21.0-32.0); CREATININE - SERUM 1.1 mg/dL (0.6-1.3); MAGNESIUM - SERUM 1.7 mg/dL (1.8-2.4)
[2018-09-02 20:19] LABS: CALCIUM 6.7 mg/dL (8.5-10.1)
--- NOTE | 2018-09-02 20:40 | NUR ---
DR. AGUILAR AND DR. RIOS HER TO SEE PT.. NEW ORDERS REC'D.
--- NOTE | 2018-09-02 21:20 | NUR ---
L CHEST INFUSAPORT ACCESSED X 1 ATTEMPT, GOOD BLOOD RETURN, FLUSHED EASILY. STERILE DSG APPLIED.
--- NOTE | 2018-09-02 22:20 | NUR ---
ADMISSION HISTORY AND ASSESSMENT COMPLETED WITH DAUGHTER. PRESSURE ULCERS TO B/L BUTTOCKS AND COCCYX NOTED, MEPILEX DSG APPLIED. DAUGHTER CARES FOR PT AT HOME AND IS AWARE OF THESE.
--- NOTE | 2018-09-02 22:40 | NUR ---
TO CT VIA BED. 2300 BACK TO ROOM.
[2018-09-02 23:50] LABS: ALBUMIN 1.6 g/dL (3.4-5.0); BILIRUBIN - TOTAL 0.23 mg/dL (0.2-1.3); CREATININE - SERUM 1.2 mg/dL (0.6-1.3); PROTEIN - SERUM 4.9 g/dL (6.4-8.2)
[2018-09-02 23:51] LABS: ANION GAP 11.6 mmol/L (8-16); CARBON DIOXIDE 23.3 mmol/L (21.0-32.0); POTASSIUM - SERUM 3.9 mmol/L (3.5-5.1)
[2018-09-02 23:52] LABS: CALCIUM 6.9 mg/dL (8.5-10.1)
[2018-09-03] VITALS (28 sets, daily range): BP systolic 90–168; BP diastolic 44–77; Ht 170.2 cm; Wt 71.5 kg
--- NOTE | 2018-09-03 00:40 | NUR ---
PT INCONT OF PINK COLORED URINE. JARRED-CARE DONE. 16FR BRUNER PLACED PER MD ORDER. 150ML PINK URINE RETURN, STAT LOCK APPLIED. PT MORE ALERT, TOOK SIPS OF WATER WITHOUT DIFFICULTY. ALARMS ON .
--- NOTE | 2018-09-03 01:00 | NUR ---
LEVOPHED OFF AT THIS TIME.
--- NOTE | 2018-09-03 02:50 | NUR ---
REASSESSMENT PER FLOWSHEET, NO ACUTE CHANGES. PT REPOSITIONED UP IN BED TO R SIDE. VSS. PT DENIES NEEDS.
[2018-09-03 04:43] LABS: HEMATOCRIT 26.9 % (36.0-48.0); MCHC 33.5 g/dL (31.0-37.0); MEAN PLATELET VOLUME 9.1 fL (7.4-10.4); RBC 3.33 10x6/uL (4.00-5.40); RDW 16.2 % (11.5-14.5); WBC 10.5 10x3/uL (4.8-10.8)
[2018-09-03 04:50] LABS: MCV 80.8 fL (80.0-100.0); PLATELET COUNT 215 10x3/uL (130-400)
--- NOTE | 2018-09-03 04:50 | NUR ---
REPOSITIONED UP IN BED, GIVEN SIPS OF WATER, ACTIVE ROM DONE. VSS.
[2018-09-03 04:54] LABS: ANION GAP 11.5 mmol/L (8-16); CARBON DIOXIDE 23.6 mmol/L (21.0-32.0); POTASSIUM - SERUM 4.1 mmol/L (3.5-5.1)
[2018-09-03 04:56] LABS: CALCIUM 6.8 mg/dL (8.5-10.1)
[2018-09-03 05:00] LABS: ALBUMIN 1.6 g/dL (3.4-5.0)
[2018-09-03 05:01] LABS: APPEARANCE TURBID (CLEAR); BILIRUBIN NEGATIVE (NEGATIVE); GLUCOSE 1000 mg/dL (NEGATIVE); KETONE SMALL mg/dL (NEGATIVE); NITRITE NEGATIVE (NEGATIVE); PROTEIN 2+ mg/dL (NEGATIVE); SPECIFIC GRAVITY 1.015 (1.005-1.020); UROBILINOGEN NORMAL (NORMAL)
[2018-09-03 05:24] LABS: LYMPHOCYTES 8 % (15-50); MONOCYTES 1 % (2-11); NEUTROPHILS 90 % (40-80); PLATELET ESTIMATE NORMAL
[2018-09-03 07:00] LABS: BACTERIA MODERATE /hpf (NONE SEEN); EPITHELIAL CELLS 0-5 /hpf (0-5); MUCUS <1+ /lpf (NONE SEEN); YEAST >1+ /hpf (NONE SEEN)
--- NOTE | 2018-09-03 07:00 | NUR ---
AWAKES EASILY ANSWERS QUESTIONS APPRIOPIATELY. SKIN WARM AND DRY. DENIES PAIN. LEFT SUBCLAVIAN INFUSAPORT INFUSING WITH D51/2NS AT 100 ML HOUR, INSULIN GTT AT 1.5 ML HOUR, NS KVO. NUMBEROUS BRUISES AND OPEN AREAS NOTED ON ARMS AND LEGS. CHEST RIGHT SIDE, HAS SOME CLEAR SMALL BUMPS NO DRAINAGE. MEDIPLEX DRESSING ON COCCYX AND BUTTOCK. MONITOR ATRIAL FLUTTER. FAMILY AT BEDSIDE.
--- NOTE | 2018-09-03 08:00 | NUR ---
DR. AGUILAR HERE. FAMILY HERE UPDATE GIVEN. REPOSITIONED. INSULIN GTT AT 1 UNIT HOUR
[2018-09-03 08:41] LABS: % SATURATION 29 % (15-55); IRON 44 ug/dl (35-150); TOTAL IRON BIND CAPACITY 148 ug/dl (260-445); UNSAT IRON BIND CAPACITY 104 ug/dl (150-375)
[2018-09-03 08:58] LABS: T4 THYROXIN - FREE 0.55 ng/dL (0.76-1.46); THYROID STIMULATING HORMONE 0.99 uIU/mL (0.36-3.74)
--- NOTE | 2018-09-03 09:30 | NUR ---
INSULIN GTT OFF. SUGAR 112. PATIENT STILL MOANING SOFTLY. DOES COMPLAINT OF SOME SHORTNESS OF BREATH OXYGEN SATURATION IS 96%.BRUNER PATENT AND DRAINING. OXYGEN AT 2 LITERS PER NC. MONITOR STILL IN ATRIAL FLUTTER.
--- NOTE | 2018-09-03 09:35 | NUR ---
TALKED WITH FAMILY TREYARLEN STATES IT IS PATIENT WISH THAT NO CPR BE DONE AND NO LIFE SUPPORT. PATIENT IS A MED CODE ONLY. DR. AGUILAR NOTIFIED OF FAMILY REQUEST AND STATE THAT IS OK. PATIENT IS MOANING STATES IT IS HER BREATHING DR. AGUILAR ORDER MORPHINE FOR COMFORT.
--- NOTE | 2018-09-03 11:00 | NUR ---
DR. RIOS HERE ORDERS RECEIVED. IV FLUIDS CHANGE TO NS. PLACED ON SLIDING SCALE INSULIN
--- NOTE | 2018-09-03 12:30 | NUR ---
FAMILY HERE UPDATE GIVEN. DIET SERVED ATE COUPLE OF BITES.
[2018-09-03 13:16] LABS: ANION GAP 11.3 mmol/L (8-16); CARBON DIOXIDE 24.6 mmol/L (21.0-32.0); CREATININE - SERUM 0.8 mg/dL (0.6-1.3); MAGNESIUM - SERUM 1.8 mg/dL (1.8-2.4); POTASSIUM - SERUM 3.9 mmol/L (3.5-5.1)
[2018-09-03 13:17] LABS: CALCIUM 6.6 mg/dL (8.5-10.1)
--- NOTE | 2018-09-03 14:00 | NUR ---
RESTING COMFORTABLY NO DISTRESS
--- NOTE | 2018-09-03 15:00 | NUR ---
FIRST STEP AIR MATTRESS PLACED ON BED. SMALL LIQUID BM NOTED. PERICARE AND BRUNER CARE DONE. PATIENT TOLERATED WELL.
--- NOTE | 2018-09-03 16:58 | MORECARE ---
CASE MANAGEMENT DISCHARGE SUMMARY PATIENT: BASIL ROSALES UNIT: [id number] ADM DATE: 09/02/18 AGE: 83 : 36 SEX: F ROOM/BED: D.2306 AUTHOR: ZENOBIA LESLIE PHYSICIAN: REFERRING PHYSICIAN: ELLA RIOS MD DATE OF SERVICE: 09/03/18 Discharge Plan Patient Name: BASIL ROSALES Facility: [facility]:[place] : 1935 Planned Disposition: Home Anticipated Discharge Date: Discharge Date: Expected LOS: Initial Reviewer: [email or web address] Initial Review Date: 09/03/2018 Generated: 09/03/18 5:58 pm DCPIA - Discharge Planning Initial Assessment Updated by [email or web address]: Yvrose Lux on 09/03/18 4:53 pm * Is the patient Alert and Oriented? Yes * How many steps to enter\exit or inside your home? ramp * PCP NUNEZ * Pharm[facility] * Preadmission Environment Home with Family * ADLs Partial Dependent * Partial ADLs (Assistance needed) Ambulation Bathing Dressing Eating Medication Management Toileting Transfers * Other Equipment WALKER, W/C, BSC, SHOWER CHAIR, HOME 02, LIFT CHAIR, HOSPITAL BED * List name and contact numbers for known caregivers / representatives who currently or will assist patient after discharge: TREY CALLOWAY - DALILA- [phone] * Verbal permission to speak to the caregivers and representatives has been obtained from the patient. N/A * Community resources currently utilized None * Additional services required to return to the preadmission environment? No * Can the patient safely return to the preadmission environment? Yes * Has this patient been hospitalized within the prior 30 days at any hospital? No Patient Name: BASIL ROSALES Page 52676 at 1658 All edits/amendments must be made on the electronic document DICTATION DATE: 09/03/181657 FAMILY PRACTICE PHYSICIAN: BRIAN 09/03/181657 RPT#: [id number] DC DATE: STATUS: ADM IN [facility] [address] [place] [address] END OF REPORT
--- NOTE | 2018-09-03 17:00 | NUR ---
RESTING COMFORTABLY NO DISTRESS
--- NOTE | 2018-09-03 17:09 | MORECARE ---
CASE MANAGEMENT DISCHARGE SUMMARY PATIENT: BASIL ROSALES UNIT: [id number] ADM DATE: 09/02/18 AGE: 83 : 36 SEX: F ROOM/BED: D.2306 AUTHOR: ANUJ,DOC PHYSICIAN: REFERRING PHYSICIAN: ELLA RIOS MD DATE OF SERVICE: 09/03/18 Discharge Plan Patient Name: BASIL ROSALES Facility: [facility]:[place] : 1935 Planned Disposition: Home Anticipated Discharge Date: Discharge Date: Expected LOS: Initial Reviewer: [email or web address] Initial Review Date: 09/03/2018 Generated: 09/03/18 6:08 pm Comments DCP- Discharge Planning Updated by [id number]: Yvrose Lux on 09/03/18 4:[address] Patient Name: BASIL ROSALES Admission Status: ER Accout number: [id number] Admission Date: 09-02-2018 : 1935 Admission Diagnosis: Attending: ELLA RIOS Current LOS: 1 Anticipated DC Date: Planned Disposition: Home Primary Insurance: MEDICARE A & B Discharge Planning Comments: CM met with patient and daughter (Trey) at bedside after explaining CM role and obtaining verbal consent. Patient lives at home with her daughter Trey and plans to return there upon discharge. Patient was non-verbal during CM assessment. Trey states that she is the patients caregiver. Trey feels this would be a safe discharge. CM discussed availability / needs of home health and medical equipment. Trey denies any discharge needs at this time. Trey states she will drive her home upon discharge. CM will continue to follow and assist as needed with discharge planning / needs. Oil Operator: Yvrose Lux DCPIA - Discharge Planning Initial Assessment Updated by [email or web address]: Yvrose Lux on 09/03/18 4:53 pm * Is the patient Alert and Oriented? Yes * How many steps to enter\exit or inside your home? ramp * PCP NUNEZ * Pharmacy [facility] * Preadmission Environment Home with Family * ADLs Partial Dependent * Partial ADLs (Assistance needed) Ambulation Bathing Dressing Eating Medication Management Toileting Transfers * Other Equipment WALKER, W/C, BSC, SHOWER CHAIR, HOME 02, LIFT CHAIR, HOSPITAL BED * List name and contact numbers for known caregivers / representatives who currently or will assist patient after discharge: TREY CALLOWAY - DAUGHTER- [phone] * Verbal permission to speak to the caregivers and representatives has been obtained from the patient. N/A * Community resources currently utilized None * Additional services required to return to the preadmission environment? No * Can the patient safely return to the preadmission environment? Yes * Has this patient been hospitalized within the prior 30 days at any hospital? No Last DP export: 09/03/18 3:58 p Patient Name: BASIL ROSALES Page 13724 at 1709 All edits/amendments must be made on the electronic document DICTATION DATE: 09/03/181707 NUT PROCESS HELPER: BRINA 09/03/181707 RPT#: [id number] DC DATE: STATUS: ADM IN [facility] [address] [place] [address] END OF REPORT
--- NOTE | 2018-09-03 18:30 | NUR ---
REPOSITIONED. TOLERATED WELL. NS AT 100 ML HOUR. URINE IS PINK
--- NOTE | 2018-09-03 19:23 | NUR ---
PT RECEIVED WITH EYES CLOSED AND CHEST RISING. AWAKENS TO VERBAL STIMULI. DENIES PAIN. VSS. ASSESSMENT COMPLETED, SEE FLOW SHEET. CALL LIGHT IN REACH. WILL CONINTINUE TO OBSERVE.
--- NOTE | 2018-09-03 21:47 | NUR ---
PT RESTING WITH EYES CLOSED AND CHEST RISING. NO S/S OF DISTRESS. AWAKENS TO VERBAL STIMULI. WILL CONTINUE TO OBSERVE.
--- NOTE | 2018-09-03 23:12 | NUR ---
REASSESSMENT COMPLETED, SEE FLOW SHEET. WILL CONTINUE TO OBSERVE.
[2018-09-04] VITALS (24 sets, daily range): BP systolic 80–110; BP diastolic 38–71
--- NOTE | 2018-09-04 01:40 | NUR ---
PT RESTING WITH EYES CLOSED AND CHEST RISING. EASILY AWOKEN TO VERBAL STIMULI. DENIES PAIN. WILL CONTINUE TO OBSERVE.
--- NOTE | 2018-09-04 03:00 | NUR ---
PT COMPLAINS OF PAIN TO ABDOMEN 11/19 WITH PRN MORPHINE GIVEN. SHORTLY AFTER PT COMPLAINS OF NAUSEA AND HAS A SMALL EMESIS DARK GREEN IN COLOR. PRN ZOFRAN GIVEN.
[2018-09-04 04:38] LABS: BASOPHILS 0 % (0-2); EOSINOPHILS 0 % (0-7); HEMATOCRIT 26.1 % (36.0-48.0); HEMOGLOBIN 8.6 g/dL (12-16); LYMPHOCYTES 7.9 % (15-50); MCH 27.2 pg (26.0-34.0); MCV 82.6 fL (80.0-100.0); MEAN PLATELET VOLUME 9.4 fL (7.4-10.4); MONOCYTES 3.6 % (2-11); NEUTROPHILS 87.5 % (40-80); PLATELET COUNT 235 10x3/uL (130-400); RBC 3.16 10x6/uL (4.00-5.40); RDW 16.5 % (11.5-14.5); WBC 11.6 10x3/uL (4.8-10.8)
[2018-09-04 05:16] LABS: ANION GAP 14.2 mmol/L (8-16); CARBON DIOXIDE 22.6 mmol/L (21.0-32.0); CREATININE - SERUM 0.8 mg/dL (0.6-1.3); POTASSIUM - SERUM 3.8 mmol/L (3.5-5.1)
[2018-09-04 05:22] LABS: CALCIUM 6.3 mg/dL (8.5-10.1)
--- NOTE | 2018-09-04 06:43 | NUR ---
REPORTED CALCIUM OF 6.3 TO RADHA ARSHAD APRN. PHYSICIAN WILL ADDRESS WHEN MAKING ROUNDS.
--- NOTE | 2018-09-04 07:30 | NUR ---
AWAKES EASILY TO VERBAL SITMULI SKIN WARM AND DRY. COMPLAINTS OF CHEST PAIN AND NAUSEA. REFUSES BREAKFAST. LEFT INFUSAPORT INFUSING WITH NS AT 100 M L HOUR. BRUNER CATH PATENT DRAINING PINK URINE. MONITOR ATRAIL FLUTTER.
--- NOTE | 2018-09-04 08:00 | NUR ---
FAMILY HERE UPDATE GIVEN
--- NOTE | 2018-09-04 09:00 | NUR ---
DR. AGUILAR HERE ORDERS RECEIVED. ZOFRAN AND MORPHINE IV GIVEN WITH SOME RELIEVE.
--- NOTE | 2018-09-04 10:17 | NUR ---
ZOFRAN GTT STARTED. PO CRUSHED AND GIVEN IN APPLE SAUCE.
[2018-09-04 12:12] LABS: FOLATE (FOLIC ACID) - SERUM >20.0 ng/mL (>3.0)
--- NOTE | 2018-09-04 12:30 | NUR ---
ATE COUPLE BITES OF CHOCOLATE PUDDING PER FAMILY. TAKING SIPS OF ICE WATER. STILL HAVING SOME NAUSEA. PAIN COMES AND GOES. RESTING FAIRLY COMFORTABLE
--- NOTE | 2018-09-04 13:44 | NUR ---
DR. RIOS HERE TALKED WITH FAMILY.
--- NOTE | 2018-09-04 16:05 | NUR ---
PATIENT RESTING COMFORTABLY. FAMILY HERE UPDATE GIVEN
--- NOTE | 2018-09-04 17:00 | NUR ---
FAMILY DAUGHTER WITH POA dORRISIS HERE. DR. RIOS NOTIFIED. PATIENT REFUSED DINNER TRAY. PATIENT AWAKE TALKING WITH FAMILY STILL SOME DISCOMFORT. ZOFRAN INFUSING.
--- NOTE | 2018-09-04 19:00 | NUR ---
ASSESSMENT COMPLETED PER FLOW SHEETS. FAMILY AT BEDSIDE AWAITING FOR DR KENNEDY TO MAKE DECISIONS FOR FURTHER CARE. CPOC.
--- NOTE | 2018-09-04 19:10 | NUR ---
DR. RIOS CALL TO REMIND ABOUT MEETING WITH FAMILY. FAMILY WAITING IN ROOM
--- NOTE | 2018-09-04 19:45 | NUR ---
DR KENNEDY HERE TALKS WITH FAMILY. ORDER TO CONSULT HOSPICE AND WHALE TRAINER.
--- NOTE | 2018-09-04 19:55 | NUR ---
SBP TO [address]S. DR KENNEDY NOTIFIED. NS BOLUS GIVEN PER ORDER. WILL CONT TO MONITOR.
--- NOTE | 2018-09-04 22:00 | NUR ---
PT'S DAUGHTER REQUESTED TO USE [facility] IN [place].
--- NOTE | 2018-09-04 23:00 | NUR ---
REASSESSMENT COMPLETED PER FLOWSHEETS. NO ACUTE SIGNS OF DISTRESS NOTED. VSS. CPOC.
[2018-09-05] VITALS (48 sets, daily range): BP systolic 76–119; BP diastolic 41–86
--- NOTE | 2018-09-05 01:00 | NUR ---
REPOSITIONED FOR COMFORT. SIPS OF WATER REQUESTED. HOB UP. SIDE RAILS UP. CPOC.
--- NOTE | 2018-09-05 03:00 | NUR ---
REASSESSMENT COMPLETED PER FLOWSHEETS. NO ACUTE SIGNS OF DISTRESS NOTED. VSS. CPOC.
--- NOTE | 2018-09-05 05:00 | NUR ---
AM BLOOD LAB DRAWN WITHOUT DIFFIC. LAB RESULTS PENDING.
[2018-09-05 05:21] LABS: BASOPHILS 0.1 % (0-2); EOSINOPHILS 0.2 % (0-7); HEMATOCRIT 23.2 % (36.0-48.0); IMMATURE GRANULOCYTES 0.7 % (0-5); LYMPHOCYTES 8.9 % (15-50); MCH 26.7 pg (26.0-34.0); MCHC 31.9 g/dL (31.0-37.0); MCV 83.8 fL (80.0-100.0); MEAN PLATELET VOLUME 8.6 fL (7.4-10.4); MONOCYTES 4.9 % (2-11); NEUTROPHILS 85.2 % (40-80); RBC 2.77 10x6/uL (4.00-5.40); RDW 17.1 % (11.5-14.5); WBC 8.7 10x3/uL (4.8-10.8)
[2018-09-05 05:26] LABS: HEMOGLOBIN 7.4 g/dL (12-16); PLATELET COUNT 172 10x3/uL (130-400)
[2018-09-05 05:47] LABS: ANION GAP 10.4 mmol/L (8-16); CREATININE - SERUM 0.8 mg/dL (0.6-1.3); POTASSIUM - SERUM 3.4 mmol/L (3.5-5.1)
[2018-09-05 05:48] LABS: CALCIUM 5.8 mg/dL (8.5-10.1)
--- NOTE | 2018-09-05 07:00 | NUR ---
PT RESTING IN BED C CALL CUELLAR IN REACH. VSS. IN A-FLUTTER. ON 2L NC. C/O NAUSEA. NIGHT NURSE GAVE ZOFRAN. INFUSAPORT TO LEFT SUBCLAVIAN. LEFT FOREARM 20 GUAGE PIV. WILL CONTINUE TO MONITOR
--- NOTE | 2018-09-05 08:32 | NUR ---
BP 86/42. MAP 55. RESTARTED LEVOPHED DRIP AT 5MCG/MIN THROUGH LEFT SUBLCAVIAN INFUSAPORT. WILL CONTINUE TO MONITOR AND TITRATE NEEDED
--- NOTE | 2018-09-05 09:30 | NUR ---
Nutrition Follow Up: Pureed diet with poor po intake. Pt does not want to eat. Pt has nausea and is on zofran drip and zofran prn per RN. BM yesterday Hospice consulted RD following
--- NOTE | 2018-09-05 10:12 | NUR ---
OBTAINED TYPE AND CROSS FROM INFUSAPORT L SUB C. TOOK TO LAB.
--- NOTE | 2018-09-05 11:30 | NUR ---
INITIATED BLOOD TRANSFUSION AT THIS TIME.
--- NOTE | 2018-09-05 13:12 | NUR ---
PT RESTING IN BED C STABLE VS ON LEVOPHED DRIP AT 3.5 MCG/MIN. BLOOD TRANSFUSING VIA LEFT FOREARM PIV. WILL CONTINUE TO MONITOR
--- NOTE | 2018-09-05 13:51 | NUR ---
PRBC TRANSFUSION COMPLETE AT THIS TIME. VSS. WILL CONTINUE TO MONITOR. LEVOPHED DOWN TO 3 MCG/MIN
--- NOTE | 2018-09-05 13:57 | MORECARE ---
CASE MANAGEMENT DISCHARGE SUMMARY PATIENT: BASIL ROSALES UNIT: [id number] ADM DATE: 09/02/18 AGE: 83 : 36 SEX: F ROOM/BED: D.2306 AUTHOR: ANUJ,DOC PHYSICIAN: REFERRING PHYSICIAN: ELLA RIOS MD DATE OF SERVICE: 09/05/18 Discharge Plan Patient Name: BASIL ROSALES Facility: [facility]:[place] : 1935 Planned Disposition: Home Anticipated Discharge Date: Discharge Date: Expected LOS: Initial Reviewer: [email or web address] Initial Review Date: 09/03/2018 Generated: 09/05/18 2:57 pm DCP- Discharge Planning Updated by [id number]: Yvrose Lux on 09/03/18 4:[address] Patient Name: BASIL ROSALES Admission Status: ER Accout number: [id number] Admission Date: 09-02-2018 : 1935 Admission Diagnosis: Attending: ELLA RIOS Current LOS: 1 Anticipated DC Date: Planned Disposition: Home Primary Insurance: MEDICARE A & B Discharge Planning Comments: CM met with patient and daughter (Trey) at bedside after explaining CM role and obtaining verbal consent. Patient lives at home with her daughter Trey and plans to return there upon discharge. Patient was non-verbal during CM assessment. Trey states that she is the patients caregiver. Trey feels this would be a safe discharge. CM discussed availability / needs of home health and medical equipment. Trey denies any discharge needs at this time. Trey states she will drive her home upon discharge. CM will continue to follow and assist as needed with discharge planning / needs. Bag Builder: Yvrose Lux DCPIA - Discharge Planning Initial Assessment Updated by [email or web address]: Yvrose Lux on 09/03/18 4:53 pm * Is the patient Alert and Oriented? Yes * How many steps to enter\exit or inside your home? ramp * PCP NUNEZ * Pharmacy [facility] * Preadmission Environment Home with Family * ADLs Partial Dependent * Partial ADLs (Assistance needed) Ambulation Bathing Dressing Eating Medication Management Toileting Transfers * Other Equipment WALKER, W/C, BSC, SHOWER CHAIR, HOME 02, LIFT CHAIR, HOSPITAL BED * List name and contact numbers for known caregivers / representatives who currently or will assist patient after discharge: TREY CALLOWAY - DAUGHTER- [phone] * Verbal permission to speak to the caregivers and representatives has been obtained from the patient. N/A * Community resources currently utilized None * Additional services required to return to the preadmission environment? No * Can the patient safely return to the preadmission environment? Yes * Has this patient been hospitalized within the prior 30 days at any hospital? No External Providers External Provider: [facility] *(provides inpt [facility] Next Contact Date: Service Request Date: Service Type: Resolution: Reviewer: Comments: Last DP export: 09/03/18 4:08 p Patient Name: BASIL ROSALES Page 58351 at 1357 All edits/amendments must be made on the electronic document DICTATION DATE: 09/05/18 1354 CATERING ATTENDANT: BRIAN 09/05/18 1357 RPT#: [id number] DC DATE: STATUS: ADM IN [facility] [address] [place] [address] END OF REPORT
--- NOTE | 2018-09-05 15:05 | NUR ---
DISCUSSED PT STATUS WITH [facility] LIFE ENRICHMENT DIRECTOR. H&P AND COVER SHEET GIVEN.
--- NOTE | 2018-09-05 15:10 | NUR ---
PT HAD MASSIVE LOOSE BLACK TARRY BM. NURSES CLEANED PT AND CHANGED ALL LINENS AND GOWN. GAVE FULL BATH. PULLED UP AND TURNED TO RIGHT SIDE.
--- NOTE | 2018-09-05 15:30 | NUR ---
NOTIFIED DR. RIOS OF [facility]. DR. RIOS DECIDED THAT PATIENT SHOULD NOT GO HOME WITH HOSPICE, BUT SHOULD STAY AND BE IN-PATIENT HOSPICE. NURSE SPOKE TO FAMILY AND NOTIFIED OF DR. CADET RECOMMENDATION. INFORMED THEM HE WILL BE HERE TILL 7PM IF THEY WOULD LIKE TO DISCUSS THIS WITH HIM.
--- NOTE | 2018-09-05 17:00 | NUR ---
OBTAINED ORDERS TO SEND TO [facility]. FAMILY ALL IN AGREEMENT. PATIENT CURRENTLY STABLE.
--- NOTE | 2018-09-05 19:05 | MORECARE ---
CASE MANAGEMENT DISCHARGE SUMMARY PATIENT: BASIL ROSALES UNIT: [id number] ADM DATE: 09/02/18 AGE: 83 : 36 SEX: F ROOM/BED: D.2306 AUTHOR: ANUJDOC PHYSICIAN: REFERRING PHYSICIAN: ELLA RIOS MD DATE OF SERVICE: 09/05/18 Discharge Plan Patient Name: BASIL ROSALES Facility: [facility]:[place] : 1935 Planned Disposition: Home Anticipated Discharge Date: Discharge Date: Expected LOS: Initial Reviewer: [email or web address] Initial Review Date: 09/03/2018 Generated: 09/05/18 8:05 pm Comments DCP- Discharge Planning Updated by [email or web address]: Yvrose Lux on 09/05/18 6:[address] CM received notice for Hospice consult. CM spoke with family and MARTIN signed for [facility]. CM called and spoke with Hayden and faxed facesheet. Hayden will call family to set up time to meet . [facility] evaluated patient and she is inpatient appropriate and will be transported via ambulance to [facility]. Ambulance transfer form completed and given to nurse. Hayedn is to call when room is ready at inpatient center. [facility] will need to be notified for transfer. CM will continue to follow and assist as needed with discharge planning / needs. DCP- Discharge Planning Updated by [email or web address]: Yvrose Lux on 09/03/18 4:[address] Patient Name: BASIL ROSALES Admission Status: ER Accout number: [id number] Admission Date: 09-02-2018 : 1935 Admission Diagnosis: Attending: ELLA RIOS Current LOS: 1 Anticipated DC Date: Planned Disposition: Home Primary Insurance: MEDICARE A & B Discharge Planning Comments: CM met with patient and daughter (Trey) at bedside after explaining CM role and obtaining verbal consent. Patient lives at home with her daughter Trey and plans to return there upon discharge. Patient was non-verbal during CM assessment. Trey states that she is the patients caregiver. Trey feels this would be a safe discharge. CM discussed availability / needs of home health and medical equipment. rTey denies any discharge needs at this time. Trey states she will drive her home upon discharge. CM will continue to follow and assist as needed with discharge planning / needs. Lock And Dam Operator: Yvrose Lux DCPIA - Discharge Planning Initial Assessment Updated by [email or web address]: Yvrose Lux on 09/03/18 4:53 pm * Is the patient Alert and Oriented? Yes * How many steps to enter\exit or inside your home? ramp * PCP NUNEZ * Pharmacy [facility] * Preadmission Environment Home with Family * ADLs Partial Dependent * Partial ADLs (Assistance needed) Ambulation Bathing Dressing Eating Medication Management Toileting Transfers * Other Equipment WALKER, W/C, BSC, SHOWER CHAIR, HOME 02, LIFT CHAIR, HOSPITAL BED * List name and contact numbers for known caregivers / representatives who currently or will assist patient after discharge: TREY CALLOWAY - DAUGHTER- [phone] * Verbal permission to speak to the caregivers and representatives has been obtained from the patient. N/A * Community resources currently utilized None * Additional services required to return to the preadmission environment? No * Can the patient safely return to the preadmission environment? Yes * Has this patient been hospitalized within the prior 30 days at any hospital? No Last DP export: 09/05/18 12:57 p Patient Name: BASIL ROSALES Page [id number] at 1905 All edits/amendments must be made on the electronic document DICTATION DATE: 09/05/181903 JAVA ARCHITECT: BRIAN 09/05/181903 RPT#: [id number] DC DATE: STATUS: ADM IN [facility] [address] [place] [address] END OF REPORT
--- NOTE | 2018-09-05 19:20 | NUR ---
REPORT RECD AND CARE ASSUMED, REC'D PT AWAKE AND ALERT X 2 ON O2 @ 2 LITERS, PT REQUESTING WATER, SIPS OF WATER PROVIDED, LEFT FOREARM PIV SALINE LOCKED, LEFT UPPER CHEST INFUSAPORT WITH NS @ 100CC/HR AND ZOFRAN INFUSING @ 4.7CC/HR, GENERALIZED BRUISES AND SCABS NOTED TO ALL EXT'S, BRUNER PATENT DRAINING DARK URINE, PP WEAK, PT ON AIR OVERLAY MATTRESS, DRSG TO BUTTOCK/COCCYX CDI, SR UP X 2, VISIBLE TO NURSES STATION.
--- NOTE | 2018-09-05 20:15 | NUR ---
DAUGHTERS AT BS, UPDATE GIVEN AND QUESTIONS ANSWERED.
--- NOTE | 2018-09-05 20:35 | NUR ---
REPORT GIVEN TO GALE AT [facility].
--- NOTE | 2018-09-05 21:00 | NUR ---
SPOKE WITH STEPHEN AT [facility], INFORMED IT WOULD BE AT LEAST AN HOUR BEFORE THE AMBULANCE WOULD ARRIVE. UPDATED FAMILY AT BS.
--- NOTE | 2018-09-05 21:30 | NUR ---
2MG MORPHINE GIVEN FOR PAIN, RATING "8" ON 0-10 PAIN SCALE, BP STABLE WILL MONITOR FOR CHANGES.
--- NOTE | 2018-09-05 22:40 | NUR ---
PT CALLING OUT FOR DAUGHTER, EXPLAINED TO PT DAUGHTER WAS IN WAITING ROOM, SIPS OF WATER PROVIDED ON REQUEST, OFFERED TO REPOSITION PT, PT STATES "NOT RIGHT NOW", WILL CONT TO MONITOR.
--- NOTE | 2018-09-05 23:40 | NUR ---
[facility] ON UNIT TO TRANSPORT PATIENT TO [facility], PT LOADED ON STRETCHER AND FAMILY BROUGHT TO BS, PT DISCHARGED TO HOSPICE.
--- NOTE | 2018-09-08 17:20 | MORECARE ---
CASE MANAGEMENT DISCHARGE SUMMARY PATIENT: BASIL ROSALES UNIT: [id number] ADM DATE: 09/02/18 AGE: 83 : 36 SEX: F ROOM/BED: D.2306 AUTHOR: ANUJDOC PHYSICIAN: REFERRING PHYSICIAN: ELLA RIOS MD DATE OF SERVICE: 09/08/18 Discharge Plan Patient Name: BASIL ROSALES Facility: [facility]:[place] : 1935 Planned Disposition: Home Anticipated Discharge Date: Discharge Date: 09/05/2018 Expected LOS: Initial Reviewer: [email or web address] Initial Review Date: 09/03/2018 Generated: 09/08/18 6:20 pm Comments DCP- Discharge Planning Updated by [email or web address]: Yvrose Lux on 09/05/18 6:[address] CM received notice for Hospice consult. CM spoke with family and MARTIN signed for [facility]. CM called and spoke with Hayden and faxed facesheet. Hayden will call family to set up time to meet . [facility] evaluated patient and she is inpatient appropriate and will be transported via ambulance to [facility]. Ambulance transfer form completed and given to nurse. Hayden is to call when room is ready at inpatient center. [facility] will need to be notified for transfer. CM will continue to follow and assist as needed with discharge planning / needs. DCP- Discharge Planning Updated by [id number]: Yvrose Lux on 09/03/18 4:[address] Patient Name: BASIL ROSALES Admission Status: ER Accout number: [id number] Admission Date: 09-02-2018 : 1935 Admission Diagnosis: Attending: ELLA RIOS Current LOS: 1 Anticipated DC Date: Planned Disposition: Home Primary Insurance: MEDICARE A & B Discharge Planning Comments: CM met with patient and daughter (Trey) at bedside after explaining CM role and obtaining verbal consent. Patient lives at home with her daughter Trey and plans to return there upon discharge. Patient was non-verbal during CM assessment. Trey states that she is the patients caregiver. Trey feels this would be a safe discharge. CM discussed availability / needs of home health and medical equipment. Trey denies any discharge needs at this time. Trey states she will drive her home upon discharge. CM will continue to follow and assist as needed with discharge planning / needs. Application Packager: Yvrose Lux DCPIA - Discharge Planning Initial Assessment Updated by [email or web address]: Yvrose Lux on 09/03/18 4:53 pm * Is the patient Alert and Oriented? Yes * How many steps to enter\exit or inside your home? ramp * PCP NUNEZ * Pharmacy [facility] * Preadmission Environment Home with Family * ADLs Partial Dependent * Partial ADLs (Assistance needed) Ambulation Bathing Dressing Eating Medication Management Toileting Transfers * Other Equipment WALKER, W/C, BSC, SHOWER CHAIR, HOME 02, LIFT CHAIR, HOSPITAL BED * List name and contact numbers for known caregivers / representatives who currently or will assist patient after discharge: TREY CALLOWAY - DAUGHTER- [phone] * Verbal permission to speak to the caregivers and representatives has been obtained from the patient. N/A * Community resources currently utilized None * Additional services required to return to the preadmission environment? No * Can the patient safely return to the preadmission environment? Yes * Has this patient been hospitalized within the prior 30 days at any hospital? No Last DP export: 09/05/18 6:05 p Patient Name: BASIL ROSALES Page [id number] at 1720 All edits/amendments must be made on the electronic document DICTATION DATE: 09/08/181719 FOOD SERVICE COORDINATOR: BRIAN 09/08/181719 RPT#: [id number] DC DATE:09/05/18 STATUS: DIS IN [facility] [address] [place] [address] END OF REPORT
--- NOTE | 2018-09-10 10:38 | CN ---
PATIENT NAME:BASIL GORDON MEDICAL RECORD: [id number] : 37 LOCATION:RADHAD.2306 ADMIT DATE: 09/02/18 ACCOUNT: [id number] CONSULTING PHYSICIAN: GABBIE WILLIAM MD REFERRING PHYSICIAN: ELLA RIOS MD DATE OF CONSULTATION: 09/02/2018 DIAGNOSES: 1. Atrial fibrillation with rapid ventricular response. 2. Shortness of breath, dyspnea on exertion. 3. Smoking history. 4. Lung cancer. HISTORY OF PRESENT ILLNESS: Mrs. Gordon was recently diagnosed with stage IV metastatic lung cancer. She presents with shortness of breath, dyspnea on exertion, found to be in new onset atrial fibrillation with heart rate in the 130 range. Systolic blood pressure is in the 80-90 range. She has not had a cardiac history. PHYSICAL EXAMINATION: GENERAL APPEARANCE: Well-nourished, well-developed, appears stated age. Level of distress, comfortable. PSYCHIATRIC: Mental status, alert, normal affect. Orientation, oriented to time, place and person. EYES: Lids and conjunctiva, noninjected. No discharge, no pallor. ENT: Lips, teeth, gums, normal dentition. Oropharynx, no cyanosis, no pallor. NECK: Carotid arteries, bilateral normal upstroke, no bruits, no thrills. JUGULAR VEINS: No jugular venous pressure or distention. CERVICAL LYMPH NODES: Nontender, nonenlarged. THYROID: Not enlarged. Nontender. No nodules. LUNGS: Respiratory effort, unlabored. CHEST: Normal curvature. No thoracic deformity. No chest wall tenderness. Percussion, resonant. Auscultation, clear. No wheezes, no rales, no rhonchi. CARDIOVASCULAR: Heart is tachy, irregular with atrial fibrillation. EXTREMITIES: No cyanosis, no edema. Peripheral pulses, full and equal in all extremities, except as noted. No bruits appreciated. ABDOMEN: Soft, nondistended. Normal aorta. No bruit. Nontender. No masses. Liver, nontender, no hepatomegaly. Spleen, nontender, no splenomegaly. MUSCULOSKELETAL: No joint tenderness. No joint swelling. No erythema. NEUROLOGICAL: Normal gait, normal strength, normal tone. SKIN: Warm and dry. OVERALL IMPRESSION: Atrial fibrillation. At this time, we will get echocardiogram to see if there is any metastatic disease of the pericardium. We will treat with digoxin 0.5 IV. Continue the digoxin load due to her low blood pressure, we will as well in the sotalol therapy. TRANSINT:[id number] Voice Confirmation ID: [id number] DOCUMENT ID: [id number] CONSULT REPORT [id number] BASIL GORDON JEFFREY MD at 1038 CC: [id number] DICTATION DATE: 09/03/18446 SCREEN PRINTING INSPECTOR: 09/03/18 0508 DIS IN 09/05/18 [place] [id number] [place] [address]
--- NOTE | 2018-09-10 10:39 | EC ---
PATIENT:BASIL ROSALES DATE OF SERVICE: 09/02/18 SEX: F MEDICAL RECORD: [id number] DATE OF : [birth year] [facility] AGE OF PATIENT: 83 ADMISSION DATE: 09/02/18 REFERRING PHYSICIAN: INTERPRETING PHYSICIAN: GABBIE MILAN MD ECHOCARDIOGRAM REPORT ECHO CHARGES 5 ECHO LIMITED Date: 09/03/18 1 DOPPLER ECHO COLOR FLOW 2 DOPPLER ECHO PULSE CLINICAL DIAGNOSIS: SOB/A-FLUTTER/A-FIB ECHOCARDIOGRAPHIC MEASUREMENTS (adult normal given) AC root (d.<3.7cm) 3.0 cm LV Septum d (<1.2 cm> 1.9 cm Valve Excursion 1.4 cm LV Septum (systole) 2.1 cm Left Atria (s.<4.0cm> 3.4 cm LVPW d(<1.2cm) 1.4 cm RV (d.<2.3cm) 2.4 cm LVPW (sytole) 1.8 cm LV diastole(<5.6CM) 3.8 cm MV E-F(>70mm/sec) cm LV systole 2.1 cm LVOT Diameter 1.9 cm MV exc.(>10mm) cm Est.ejection fraction (50-75%) % DOPPLER: LVIT cm/sec A 0 cm/sec E 0 cm/sec LA 0 cm/sec RVSP 50.1 mmHg LVOT 0 cm/sec AOP1/2T 0 m/s Asc. Ao 0 cm/sec RVOT 0 cm/sec RA 0 cm/sec PA 0 cm/sec AV Gradient Peak 0 mmHg AV Mean 0 mmHg AV Area 0 cm MV Gradient Peak 0 mmHg MV Mean 0 mmHg MV Area 0 cm COMMENTS: LIMITED STUDY - 2-D,COLOR,DOPPLER Test Worker: Daniel DIAZ Jet Pilot: 1 Dr. Milan TAPE# PACS Pericardial Effusion N DATE OF SERVICE: 09/03/2018 PROCEDURE: Echocardiogram. FINDINGS: 1. Left ventricular chamber size is mildly dilated. Left ventricular systolic function is moderately reduced, overall ejection fraction estimated 35%. 2. Left atrium is within normal limits at 3.4 cm. Right atrium and right ventricular chamber sizes are within normal limits. 3. Valvular structures have normal structure and motion. ECHOCARDIOGRAM REPORT [id number] BASIL ROSALES 4. Doppler interrogation reveals mild mitral regurgitation, moderate tricuspid regurgitation, no other valvular insufficiency or stenosis. Pulmonary systolic pressure is elevated estimated at 50 mmHg. 5. No evidence of pericardial effusion or left ventricular thrombus. TRANSINT:[id number] Voice Confirmation ID: [id number] DOCUMENT ID: [id number] GABBIE MILAN MD at 1039 CC: [id number] DICTATION DATE: 09/04/18846 ROLLER STAINER: 09/04/18 0904 DIS IN 09/05/18 [facility] [address] [place] [address]
== END 2018-09-05 23:45 | disposition home health service (06) | DRG 871 ==
LOC: D.ER 12:02 → D.ICU 14:33 → D.EDHOLD 14:33 → D.ICU 15:07
PROVIDERS: Family Medicine; Internal Medicine Hematology & Oncology; ADMIT Internal Medicine Nephrology; ATTEND Internal Medicine Nephrology
DX: A41.2 Sepsis due to unspecified staphylococcus (principal); E11.10 Type 2 diabetes mellitus with ketoacidosis without coma; I26.99 Other pulmonary embolism without acute cor pulmonale; J96.01 Acute respiratory failure with hypoxia; J18.9 Pneumonia, unspecified organism; R53.2 Functional quadriplegia; R65.21 Severe sepsis with septic shock; R57.1 Hypovolemic shock; C78.00 Secondary malignant neoplasm of unspecified lung; C19 Malignant neoplasm of rectosigmoid junction; N39.0 Urinary tract infection, site not specified; N17.9 Acute kidney failure, unspecified; E87.1 Hypo-osmolality and hyponatremia; Z66 Do not resuscitate; I48.91 Unspecified atrial fibrillation; I95.9 Hypotension, unspecified; D50.9 Iron deficiency anemia, unspecified; J44.9 Chronic obstructive pulmonary disease, unspecified; E03.9 Hypothyroidism, unspecified; E11.42 Type 2 diabetes mellitus with diabetic polyneuropathy; E87.5 Hyperkalemia; E83.42 Hypomagnesemia; I10 Essential (primary) hypertension